=== PATIENT | female | born 1995 | race Caucasian/White ===

== ENCOUNTER 2016-02-25 02:56 | Inpatient (IN) | payer OTHER ==
[~2016-02-25] VITALS: Ht 157.5 cm; Wt 70.4 kg
[~2016-02-25 02:56] MED LIST: MULT-506 PO; [UNRECOGNIZED DRUG - CODE] PO
[2016-02-25] MEDS ORDERED: LACTATED RINGER'S 1000ML 1,000 ML IV PRN (03:07)
[2016-02-25] MEDS ORDERED: MTHL PO (03:51)
[2016-02-25] MEDS ORDERED: FENTANYL 2MCG/ML ROPIV 1.25MG/ML 100ML BAG EPI ONE (03:52)
[2016-02-25] MEDS ORDERED: EpHEDrine SULFATE INJ 50 MG/ML AMP ONE (03:52)
[2016-02-25] MEDS ORDERED: BUPIVACAINE 0.25% 30 ML VIAL ONE (03:52)
[2016-02-25] MEDS ORDERED: FENTANYL CITRATE INJ 50 MCG/1 ML 2 ML VIAL ONE (03:52)
[2016-02-25 03:53] VITALS: Ht 157.5 cm; Wt 70.4 kg
[2016-02-25 03:57] LABS: HEMATOCRIT 33.3 % (37-47); MEAN CELL VOLUME 84.9 fL (80-100); MEAN CORPUSCULAR HEMOGLOBIN 29.3 pg (25-34); MEAN CORPUSCULAR HGB CONC 34.5 g/dl (32-36); MEAN PLATELET VOLUME 11.3 fL (7.4-10.4); PLATELET COUNT 205 K/uL (130-400); RED BLOOD COUNT 3.92 M/uL (4.2-5.4); WHITE BLOOD COUNT 9.24 K/uL (4.8-10.8)
[2016-02-25] MEDS ORDERED: LACTATED RINGER'S 1000ML 500 ML IV PRN ×2 (04:38→09:34)
[2016-02-25] MEDS: LACTATED RINGER'S 1000ML 1,000 ML IV SCH ×2 (04:38→11:54)
[2016-02-25] MEDS ORDERED: EpHEDrine SULFATE INJ 50 MG/ML AMP IV PRN (04:45)
[2016-02-25] MEDS ORDERED: NALBUPHINE HCL INJ 10 MG/ML AMP IV PRN (04:45)
[2016-02-25] MEDS ORDERED: DiphenhydrAMINE HCL 50 MG/ML VIAL IV PRN (04:45)
[2016-02-25] MEDS ORDERED: NALOXONE HCL INJ 0.4 MG/1 ML VIAL/CARP IV PRN (04:45)
[2016-02-25] MEDS ORDERED: ONDANSETRON INJ 2 MG/ML 2 ML VIAL IV PRN (04:45)
[2016-02-25] MEDS ORDERED: NURSING VERBAL MED ORDER ONE (06:45)
[2016-02-25] MEDS: FENTANYL 2MCG/ML ROPIV 1.25MG/ML 100ML BAG EPI PRN ×2 (07:09→10:00)
[2016-02-25] MEDS ORDERED: METHADONE ORAL SOLN 2 MG/1ML PO SCH (08:00)
[2016-02-25] MEDS ORDERED: OXYTOCIN 30 UNITS/500ML NSS IV ONE (08:50)
[2016-02-25] MEDS ORDERED: OXYTOCIN 30 UNITS/500ML NSS IV PRN ×2 (09:45→15:15)
[2016-02-25] MEDS: METHADONE ORAL SOLN 2 MG/1ML PO SCH (10:59)
[2016-02-25] MEDS ORDERED: BENZOCAINE 20% AER SPR 82.5 GM CAN EXT PRN (15:15)
[2016-02-25] MEDS ORDERED: LANOLIN OINT EXT PRN ×2 (15:15)
[2016-02-25] MEDS ORDERED: SUPERCREAM 0.870 % 15GM JAR EXT PRN (15:15)
[2016-02-25] MEDS ORDERED: HYDROCORTISONE ACETATE 25 MG SUPP PR PRN (15:15)
[2016-02-25] MEDS ORDERED: ACETAMINOPHEN 325 MG TAB PO PRN (15:45)
--- NOTE | 2016-02-25 16:04 | DELIVERY SUMMARY ---
DATE OF OPERATION: 02/25/2016 DELIVERY SUMMARY DATE OF DELIVERY: 02/25/2016. PRE-DELIVERY DIAGNOSIS: 1. 21-year-old G1,P0 at 39 weeks 6 days. 2. Spontaneous rupture of membranes and spontaneous labor. 3. Methadone use. POST-DELIVERY DIAGNOSIS: Same. ESTIMATED BLOOD LOSS: 300 mL. APGARS: 7 and 9. FINDINGS: Viable male with Apgars 7 and 9, weight pending. Compound hand presentation. DESCRIPTION OF DELIVERY: The patient progressed to complete with epidural analgesia. She labored while complete for 2+ hours however heart tracing was category 1. She then felt the urge to push and began to push and spontaneously vaginally delivered a viable male in the left occiput anterior position. The head delivered and a compound hand right arm delivered at the same time as the attempts to deliver the shoulder. Attempt to sweep the arm was unsuccessful and the baby's shoulders were rotated to a diagonal position to better fit through the pelvis. No nuchal cord was noted. The body delivered after the shoulders. The cord was doubly clamped and cut. The baby was immediately handed off to waiting pediatrics team where a spontaneous cry was heard. Apgars were 7 and 9. The placenta was then spontaneously delivered intact with a 3-vessel cord. Pitocin was started. The uterus and vagina were swept of all clots and debris. Excellent hemostasis was observed. The cervix, vagina and perineum were inspected and found to be hemostatic. A first degree superficial perineal laceration was noted. This was hemostatic and therefore no repair was needed. Mother and baby were recovering in the room in stable and good condition. I attest to the content of the Intraoperative Record and any orders documented therein. Any exceptio ns are noted below.
[2016-02-25] MEDS: IBUPROFEN 600 MG TAB PO PRN ×2 (17:27→23:51)
[2016-02-25 17:45] VITALS: BP 135/79; PULSE 88; TEMP 37.1
[2016-02-25 20:29] VITALS: BP 143/82; PULSE 89; TEMP 36.6
[2016-02-25] MEDS: DOCUSATE SODIUM 100 MG CAP PO SCH (21:06)
[2016-02-25 23:45] VITALS: BP 133/78; PULSE 90; TEMP 36.7; O2SAT 98
[2016-02-26 03:50] VITALS: BP 119/77; PULSE 83; TEMP 36.6; O2SAT 97
--- NOTE | 2016-02-26 06:54 | Progress Note ---
Subjective Feb 26, 2016. Subjective conversation w/ patient, physical exam Ambulation: limited ambulation Voiding: no voiding problems Passing Gas: Yes Diet Tolerance: Regular Diet Lochia: Small Feeding Type: Bottle Feeding Pain: No pain reported this morning Review of Systems Constitutional: No chills, No fever Respiratory: No cough, No shortness of breath Cardiac: No chest pain Breast: No breast pain Abdomen: No nausea, No pain, No vomiting Female : No dysuria Objective Vital Signs Date Time Temp Pulse Resp B/P Pulse Ox O2 Delivery O2 Flow Rate FiO2 02/26/16 03:50 36.6 83 16 119/77 97 Room Air 02/25/16 23:45 98 Room Air 02/25/16 23:45 36.7 90 18 133/78 98 Room Air 02/25/16 20:35 Room Air 02/25/16 20:29 36.6 89 16 143/82 Room Air 02/25/16 17:45 37.1 88 16 135/79 Room Air 02/25/16 17:45 Room Air Physical Exam General Appearance: WELL-APPEARING, WD/WN, NO APPARENT DISTRESS Respiratory/Chest: lungs clear, normal breath sounds Cardiovascular: regular rate, rhythm, no gallop, no murmur Abdomen: non tender, soft Fundus: Firm, Relation to Umbilicus (1cm below umbilicus) Extremities: no calf tenderness Laboratory Results Last 24 Hours Test 02/26/16 04:44 Medications Current Inpatient Medications Medications (Trade) Dose Ordered Sig/Jose Route Start Time Stop Time Status Last Admin Dose Admin Lactated Ringer's 1,000 ml @ 125 mls/hr Q8H IV 02/25/16 03:07 02/27/16 03:06 02/25/16 11:54 125 MLS/HR Lactated Ringer's (Lr 1000ml) 1,000 ml @ 999 mls/hr Q1H1M PRN IV 02/25/16 03:07 03/26/16 03:06 02/25/16 04:38 999 MLS/HR Methadone HCl 136 mg 136 mg DAILY@1100 PO 02/25/16 11:00 03/10/16 10:59 02/25/16 10:59 136 MG Lactated Ringer's (Lr 1000ml) 500 ml @ 999 mls/hr Q31M PRN IV 02/25/16 09:34 03/26/16 09:33 Oxytocin (Pitocin IV) 30 units UD PRN IV 02/25/16 15:15 03/26/16 15:14 Benzocaine (Dermoplast Aero Spr) 1 appln PRN PRN EXT 02/25/16 15:15 03/26/16 15:14 02/25/16 21:06 1 APPLN Cocaine HCl (Supercream 0.870% Cr) BID PRN EXT 02/25/16 15:15 03/10/16 15:14 Hydrocortisone Acetate (Anusol Hc Supp) 25 mg BID PRN HI 02/25/16 15:15 03/26/16 15:14 Lanolin (Lanolin Oint) PRN PRN EXT 02/25/16 15:15 03/26/16 15:14 Ibuprofen (Motrin Tab) 600 mg Q4H PRN PO 02/25/16 15:15 03/26/16 15:14 02/25/16 23:51 600 MG Bisacodyl (Dulcolax Tab) 5 mg 20 PO 02/26/16 20:00 02/26/16 20:01 Bisacodyl (Dulcolax Supp) 10 mg DAILY PRN HI 02/27/16 07:00 02/27/16 07:01 Docusate Sodium (coLACE CAP) 100 mg BID PO 02/25/16 20:00 03/26/16 19:59 02/25/16 21:06 100 MG Acetaminophen (Tylenol Tab) 325 mg Q4H PRN PO 02/25/16 15:45 03/26/16 15:44 02/25/16 16:14 325 MG Assessment and Plan Problem List Medical Problems: (1) Abdominal cramping affecting Status: Acute (2) Cervical strain Status: Acute (3) First trimester Status: Acute (4) Status: Acute (5) Status: Acute (6) Urinary tract infection Status: Acute (7) Whiplash Status: Acute Post- Day#: 1 Continue Routine Care: - Vital Signs reviewed and WNL (temp max 36.6) - Blood Type: O+, GBS- , Rubella Immune - Patient doing well clinically - Encourage Ambulation today - Pain well controlled - Tolerating PO Diet Well Resident Physician Supervision Note: I interviewed and examined the patient. Discussed with Dr. Monique and agree with findings and plan as documented in the note. Any exceptions or clarifications are listed here: [None] Documented By: Arsalan López
[2016-02-26 07:10] LABS: HEMATOCRIT 28.8 % (37-47)
[2016-02-26 07:50] VITALS: BP 120/81; PULSE 86; TEMP 36.6
[2016-02-26] MEDS ORDERED: METHADONE ORAL SOLN 5 MG/2.5 ML UDP PO SCH (08:00)
[2016-02-26] MEDS: DOCUSATE SODIUM 100 MG CAP PO SCH ×2 (08:11→19:41)
[2016-02-26] MEDS: METHADONE ORAL SOLN 2 MG/1ML PO SCH (11:27)
[2016-02-26 12:35] VITALS: BP 124/85; PULSE 82; TEMP 36.6
[2016-02-26 15:30] VITALS: BP 126/83; PULSE 79; TEMP 36.7
[2016-02-26] MEDS: IBUPROFEN 600 MG TAB PO PRN ×2 (16:22→23:18)
[2016-02-26] MEDS ORDERED: BISACODYL 5 MG TABEC PO SCH (20:00)
[2016-02-26 23:15] VITALS: BP 136/93; PULSE 84; TEMP 36.4
[2016-02-27] MEDS ORDERED: BISACODYL 10 MG SUPP PR PRN (07:00)
[2016-02-27 08:50] VITALS: BP 125/81; PULSE 74; TEMP 36.4; O2SAT 97
[2016-02-27] MEDS: DOCUSATE SODIUM 100 MG CAP PO SCH (08:54)
[2016-02-27] MEDS: METHADONE ORAL SOLN 2 MG/1ML PO SCH (10:57)
--- NOTE | 2016-02-27 11:11 | Progress Note ---
Subjective Feb 27, 2016. Subjective conversation w/ patient Ambulation: ambulating normally Voiding: no voiding problems Passing Gas: Yes Diet Tolerance: Regular Diet Lochia: Moderate Feeding Type: Breast Feeding Pain: pain controlled Review of Systems Constitutional: No problem reported Respiratory: No problem reported Cardiac: No problem reported Breast: No problem reported Abdomen: No problem reported Female : No problem reported Objective Vital Signs Date Time Temp Pulse Resp B/P Pulse Ox O2 Delivery O2 Flow Rate FiO2 02/27/16 08:50 97 Room Air 02/27/16 08:50 36.4 74 18 125/81 97 Room Air 02/26/16 23:15 Room Air 02/26/16 23:15 36.4 84 20 136/93 Room Air 02/26/16 15:30 Room Air 02/26/16 15:30 36.7 79 20 126/83 Room Air 02/26/16 12:35 36.6 82 20 124/85 Physical Exam General Appearance: WELL-APPEARING, WD/WN, NO APPARENT DISTRESS Respiratory/Chest: no respiratory distress Cardiovascular: regular rate, rhythm Abdomen: non tender, soft Fundus: Firm Extremities: normal inspection Assessment and Plan Problem List Medical Problems: (1) Abdominal cramping affecting Status: Acute (2) Cervical strain Status: Acute (3) First trimester Status: Acute (4) Status: Acute (5) Status: Acute (6) Urinary tract infection Status: Acute (7) Whiplash Status: Acute Post- Day#: 2 Continue Routine Care: Feeling well. Plan to discharge home today. Discharge instructions reviewed. Patient is to followup in office in 6w.
--- NOTE | 2016-02-27 11:13 | Discharge Instructions ---
Discharge Instructions Admission Reason for Admission: LABOR Discharge Discharge Diagnosis / Problem: Vaginal delivery Discharge Goals Goal(s): Routine recovery after delivery Activity Recommendations Activity Limitations: per Instructions/Follow-up section . Instructions / Follow-Up Instructions / Follow-Up ACTIVITY RECOMMENDATIONS: * Gradual return to full activity over the next 2-3 weeks. * No lifting - nothing heavier than baby over the next 2-3 weeks. * Do not engage in vigorous exercise, sexual activity or sports until cleared by your physician. * Do not drive or operate any motorized equipment until cleared by your physician. * You may shower/bathe daily. MEDICATIONS: For discomfort or pain, you may use Acetaminophen (Tylenol), Ibuprofen (Advil), or Naproxen (Aleve) following the package directions. For constipation you may use Colace following the package directions. BREAST CARE: If you are not breast feeding: * Wear a supportive bra 24 hours a day for one to two weeks. * Avoid stimulating your breasts and nipples as much as possible during the first few weeks after delivery. * When taking a shower, have the warm water hit your back, not breasts. * When your breasts feel full, apply ice packs. Usually three to four times a day helps ease the discomfort. * Take a mild pain medication (Tylenol / Motrin) when you are uncomfortable. If breast feeding: * Use breast milk to lubricate nipples. Lansinoh cream may be used for sore nipples. You do not need to remove cream prior to breast feeding. If using a different brand of cream, check the label for directions regarding removal of cream prior to nursing. * Wear a supportive bra. * If having problems with breasts or breast feeding, call a toy consultant or your health care provider. EPISIOTOMY CARE: After delivery, if you have an episiotomy (stitches), the following steps will ease discomfort and aid healing. * For the first 24 hours after delivery, place ice packs next to your episiotomy to help reduce swelling. * After the first 24 hour-period, sitz baths, either portable or in the tub, are suggested. A shower with a shower arm sprayed over the episiotomy may be comforting. * Mally care should be done after each voiding and bowel movement. Squirt warm water from a plastic bottle over the perineum (region of the body between the anus and urinary opening) and pat dry. * Use Dermoplast to ease discomfort. Shake container. Wisner directly over the episiotomy. Place a Tucks on a clean sanitary pad next to your episiotomy. SPECIAL CARE INSTRUCTIONS: When you are discharged from the hospital, it is important for you to follow the instructions listed below: * During the first week at home, you should be able to care for yourself and your baby. In addition, the usual light household activities are encouraged. * Limit your activities to the way you feel. Do not try to clean the house or move furniture. Be sensible. * If you actively engage in sports and have done so up until the time of your delivery, you may resume these activities as soon as you feel able. This may take up to one month or even longer. Use good judgment. * Continue to take your vitamins for at least six weeks after the of your baby. * Your diet need not be limited unless you were on a special diet before your delivery. Breast-feeding mothers need around 2500 calories per day and at least 64-80 ounces of fluid per day (8 to 10 glasses). * You should eat foods from the four major food groups. Crash diets or fad diets are to be avoided. Eating lean meats, fresh fruits and vegetables, low-fat dairy products, high fiber foods and a regular exercise program, will help you get back to your pre- weight without putting your health at risk. * Constipation is sometimes a problem after delivery. Take a mild laxative as needed. If breast feeding, Milk of Magnesia is acceptable to use. You may use a suppository or Fleets enema if no episiotomy. * A daily shower or tub bath is suggested. Be sure to thoroughly and gently dry the perineum. * A bloody vaginal discharge will usually continue until around four weeks post . A small amount of bleeding may continue for as long as six weeks. Vaginal discharge changes from the bright red bleeding after delivery to pink then brownish and finally yellowish-pink before becoming white and disappearing. * Bleeding may increase with activity. Your first period may come in 4-8 weeks. If you are breast feeding, your period may be delayed even longer. * Aguilita (sex) can begin whenever both you and your partner feel comfortable and do not have any form of genital infection. It is recommended that you wait at least six weeks for internal and external healing to occur. If you have questions, please talk to your health care practitioner. A condom should be used to prevent infection and . * Foreplay, gentle intercourse and lubrication is very important the first several times to prevent pain. A water-based lubricant such as K-Y jelly or Astroglide may be used. * If you have RH negative blood and your baby is RH positive, you will receive RHOGAM by injection prior to discharge. The nurse will give you a card to keep with you that has the date and place that you received RHOGAM after delivery. * During your care, you had a Rubella screen done to check for the presence of rubella antibodies in your blood. If your test was negative, you will receive a Rubella vaccine prior to discharge. This vaccine may cause a fever, soreness at the injection site and flu-like symptoms. If these symptoms persist, notify your health care practitioner. is not advised for one month after a Rubella vaccine. * Verbalizes understanding of car seat law as reviewed with patient nursing. * Car Seat hand-out given and reviewed with patient by nursing. * Shaken baby information reviewed with patient by nursing. Call you doctor if: * Heavy bleeding (saturating several pads an hour) or passing clots the size of your fist. * A fever >101 degrees F (38.3 degrees C) on two occasions four hours apart and /or chills. * Unusual pain in the pelvic or vaginal areas. * "Baby Blues" lasting longer than two weeks. If you have any questions or concerns, call your health care practitioner at . FOLLOW UP VISIT: * Please call the office at to schedule a 6 week examination. It is important you keep this appointment. It is important for you to make arrangements for either yearly or twice yearly check-ups thereafter. Current Hospital Diet Patient's current hospital diet: Regular OB Diet Discharge Diet Recommended Diet: Regular OB Diet Pending Studies Studies pending at discharge: no Medical Emergencies . Who to Call and When: Medical Emergencies: If at any time you feel your situation is an emergency, please call 911 immediately. . Non-Emergent Contact Non-Emergency issues call your: Primary Care Provider . . "Provider Documentation" section prepared by Evy Navarro. VTE Core Measure Inpt VTE Proph given/why not?: Treatment not indicated
[2016-02-27 15:30] VITALS: BP 131/81; PULSE 72; TEMP 36.6
[2016-02-27] MEDS: IBUPROFEN 600 MG TAB PO PRN (15:50)
[2016-02-27 18:15] VITALS: BP_DIAS 81; PULSE 72; TEMP 36.6
== END 2016-02-27 18:10 | disposition home or self-care (01) | DRG 775 ==
LOC: C.OPB 02:56 → C.LD 02:56 → C.OPB 03:11 → C.OBG 18:47
PROVIDERS: ADMIT Obstetrics & Gynecology; ATTEND Obstetrics & Gynecology
PROC: 10E0XZZ Delivery of Products of Conception, External Approach (ICD-10-PCS; principal; 2016-02-25)
DX: O42.02 Full-term premature rupture of membranes, onset of labor within 24 hours of rupture (principal); O99.324 Drug use complicating childbirth; Z37.0 Single live birth; F19.10 Other psychoactive substance abuse, uncomplicated; O32.6XX0 Maternal care for compound presentation, not applicable or unspecified; Z79.891 Long term (current) use of opiate analgesic; Z3A.39 39 weeks gestation of pregnancy

== ENCOUNTER 2016-06-07 17:33 | Emergency (ER) | payer OTHER ==
[~2016-06-07] VITALS: Ht 157.5 cm; Wt 59.1 kg
[~2016-06-07 17:33] MED LIST changes: +MTHL PO; -[UNRECOGNIZED DRUG - CODE] PO
[2016-06-07 17:45] VITALS: TEMP 36.8; Ht 157.5 cm; Wt 59.1 kg
[2016-06-07] MEDS ORDERED: IBUP-103 PO (18:04)
[2016-06-07] MEDS ORDERED: OXYC1TAB3 PO (18:06)
[2016-06-07] MEDS ORDERED: PENI-82 PO (18:06)
--- NOTE | 2016-06-07 18:11 | EMERGENCY ROOM VISIT NOTE ---
History First contact with patient: 17:56 Chief Complaint: DENTAL PAIN Stated Complaint: ABCESS TOOTH, SWOLLEN MOUTH AND GUMS,VOMITING,FEVE Nursing Triage Summary: Pt reports right upper dental pain x 3 days, swelling began last night. Has a dentist appt on . Pt states, "There is a puffed up ball and a ball of pus on my gum." History of Present Illness The patient is a 21 year old female who presents to the Emergency Room with complaints of a dental infection. The patient reports that she has had right upper dental pain for the past 3 days, and is now tasting pus in her mouth. The patient has an appointment next Sunday with a dentist in [place]. She denies any pain extending into the lower jaw, and denies any difficulty with swallowing. She denies sinus congestion or headache. She rates her discomfort a 7 out of 10. Review of Systems 10 system review was performed and was negative except for pertinent positives and negatives as indicated in history of present illness Past Medical/Surgical History Medical Problems: (1) Hemorrhage following tonsillectomy (2) Leakage, amniotic fluid (3) Neck muscle strain (4) Neck muscle strain (5) Normal labor (6) Pneumonia (7) with 39 completed weeks gestation (8) Urinary tract infection (9) Urinary tract infection (10) Yeast infection Family History Cancer Diabetes mellitus Heart disease Hypertension Kidney disease Kidney stones Social History Smoking Status: Never Smoker Alcohol Use: none Drug Use: none Marital Status: single Housing Status: lives alone Occupation Status: employed Current/Historical Medications Scheduled Penicillin V Potassium (Veetids), 500 MG PO QID Scheduled PRN Ibuprofen Tab (Advil), 400 MG PO Q6H PRN for Pain Oxycodone Ir (Roxicodone Ir), 1-2 TAB PO Q4H PRN for Pain Allergies Coded Allergies: Lanolin (Verified Allergy, Unknown, HIVES, 02/25/16) Physical Exam Vital Signs Date Time Temp Pulse Resp B/P Pulse Ox O2 Delivery O2 Flow Rate FiO2 06/07/16 18:22 89 16 115/74 98 06/07/16 17:45 36.8 69 18 122/81 99 Room Air Physical Exam CONSTITUTIONAL: Healthy and well nourished. Alert and oriented X 3 with positive affect. HEENT: Normocephalic, atraumatic. Pupils equal, round and reactive. No facial edema noted. Examination of the right ear does not show any erythema or air-fluid levels. OROPHARYNX: The patient has pointing of the right upper premolar. The wound is draining. No additional gingival erythema or edema noted. NECK: Full active range of motion without discomfort. INTEGUMENTARY: No rash or other significant dermatologic conditions noted. NEUROLOGIC: Facial sensations are intact. Medical Decision & Procedures ED Course Patient history and physical exam were performed. Nurse's notes were reviewed. The patient was provided prescriptions for Pen-Vee K 500 mg 4 times a day 10 days, and OxyIR 5 mg, dispensed #15 with no refills. She was also encouraged to alternate ibuprofen and Tylenol for baseline pain relief. She was instructed to contact her dentist tomorrow to advise them of her infection. Return to the emergency department for any significantly worsening swelling, pain or fever. She was advised that she may also follow-up with her family doctor as needed for pain management until she can see her dentist next week. The patient voiced understanding of all discharge instructions, was happy with plan care, and rated her pain a 6 out of 10 at the time of discharge. Patient refused any nonnarcotic analgesics while in the emergency department as she drove here. Impression Primary Impression: Dental infection Departure Information Dispostion Home / Self-Care Prescriptions Oxycodone Ir (Roxicodone Ir) 5 Mg Tab 1-2 TAB PO Q4H Y for Pain, #15 TAB For Initial Treatment Prov: Beny Durant PA 06/07/16 Penicillin V Potassium (Veetids) 500 Mg Tab 500 MG PO QID, #40 TAB Prov: Beny Durant PA 06/07/16 Forms HOME CARE DOCUMENTATION FORM, IMPORTANT VISIT INFORMATION Patient Instructions My [facility] Additional Instructions Complete all Pen-Vee K antibiotics as prescribed. Intermittently apply warm moist compress/washcloth to the face. Rinse mouth with warm salt water every 4 hours. Ibuprofen 800 mg and/or Tylenol 1000 mg every 8 hours. You may also alternate these medications for more effective pain relief: Ibuprofen --4 HRS--> Tylenol --4 HRS--> ibuprofen --4 HRS--> Tylenol .... OxyIR if needed for worse pain. Follow-up with your dentist for further reevaluation and management. You may also need to contact your family doctor for further pain management until you can see your dentist. The emergency department does not provide dental services, referrals or ongoing dental pain management.
[2016-06-07 18:22] VITALS: BP 115/74; PULSE 89; O2SAT 98
== END 2016-06-07 18:23 | disposition home or self-care (01) ==
LOC: C.EDD 18:01
DX: K04.7 Periapical abscess without sinus (principal); K08.89 Other specified disorders of teeth and supporting structures

== ENCOUNTER 2016-06-18 10:10 | Emergency (ER) | payer OTHER ==
[~2016-06-18 10:10] MED LIST changes: +IBUP-103 PO; -MTHL PO; -MULT-506 PO; +OXYC1TAB3 PO; +PENI-82 PO
[2016-06-18 10:13] VITALS: BP 112/69; PULSE 92; TEMP 36.7; O2SAT 97; Ht 157.5 cm
[2016-06-18] MEDS ORDERED: METH10CO PO (10:19)
--- NOTE | 2016-06-18 10:52 | DIAGNOSTIC IMAGING REPORT ---
RIGHT TOE(S) MIN 2 VIEWS CLINICAL HISTORY: Right first toe pain following injury. COMPARISON: Right foot radiographs June 30, 2014. FINDINGS: Alignment of the right first toe is anatomic. There is no fracture. IMPRESSION: No acute fracture or dislocation of the right first toe. Electronically signed by: Jose Barreto M.D. 06/18/2016 10:50 AM Dictated Date/Time: 06/18/2016 10:48 AM
--- NOTE | 2016-06-18 14:38 | EMERGENCY ROOM VISIT NOTE ---
History Report prepared by Darryl: Gucci Munoz Under the Supervision of: Dr. Dionisio Dorantes D.O. First contact with patient: 10:16 Chief Complaint: TOE PAIN, INJURY Stated Complaint: BRUISED/BROKEN BIG TOE ON RT FOOT History of Present Illness The patient is a 21 year old female who presents to the Emergency Room with complaints of persistent big toe pain on her right foot that started prior to arrival this morning. She works as a logistics supply officer, and she says that she was rolling a car at work, and the cart rolled onto her big toe on her right foot. The patient says that the cart did not hit her chest or any other body part. She denies any shortness of breath, chest pain, nausea, and vomiting. Source of History: patient Onset: Prior to arrival this morning Position: toe(s) (big toe on right foot) Quality: other (pain) Timing: other (persistent) Associated Symptoms: No SOB, No chest pain, No diarrhea, No nausea, No vomiting Note: Associated symptoms: Denies hip pain or knee pain. Review of Systems See HPI for pertinent positives & negatives. A total of 10 systems reviewed and were otherwise negative. Past Medical & Surgical Medical Problems: (1) Hemorrhage following tonsillectomy (2) Leakage, amniotic fluid (3) Neck muscle strain (4) Neck muscle strain (5) Normal labor (6) Pneumonia (7) with 39 completed weeks gestation (8) Pyelonephritis (9) Urinary tract infection (10) Urinary tract infection (11) Yeast infection Surgical Problems: (1) History of tonsillectomy Family History Cancer Diabetes mellitus Heart disease Hypertension Kidney disease Kidney stones Social History Smoking Status: Never Smoker Alcohol Use: none Drug Use: none Marital Status: single Housing Status: lives alone Occupation Status: employed Current/Historical Medications Scheduled Methadone Hcl (Methadone Hcl Intensol), 90 MG PO DAILY Allergies Coded Allergies: Lanolin (Verified Allergy, Unknown, HIVES, 06/18/16) Physical Exam Vital Signs Date Time Temp Pulse Resp B/P Pulse Ox O2 Delivery O2 Flow Rate FiO2 06/18/16 10:13 36.7 92 20 112/69 97 Room Air Physical Exam GENERAL: sitting up in bed, no acute distress, nontoxic EYE EXAM: normal conjunctiva OROPHARYNX: mucous membranes are moist NECK: supple, no nuchal rigidity, no adenopathy, non-tender LUNGS: Clear to auscultation. Normal chest wall mechanics HEART: no murmurs, S1 normal and S2 normal ABDOMEN: abdomen soft, non-tender, normo-active bowel sounds, no masses, no rebound or guarding. BACK: Back is symmetrical on inspection and there is no deformity, no midline tenderness, no CVA tenderness. SKIN: no rashes and no bruising UPPER EXTREMITIES: upper extremities are grossly normal. LOWER EXTREMITIES: Full active and passive range of motion of right hip, knee, and ankle. No tenderness over arch of foot. Second through fifth digits are nontender. Mild pain on palpation on proximal portion of toe tracking distally to tip. No tenderness over MTP. Skin intact, no bruising, no swelling. NEURO EXAM: Normal sensorium. Medical Decision & Procedures ER Provider Diagnostic Interpretation: Radiology results as stated below per my review and the radiologist's interpretation: RIGHT TOE(S) MIN 2 VIEWS CLINICAL HISTORY: Right first toe pain following injury. COMPARISON: Right foot radiographs June 30, 2014. FINDINGS: Alignment of the right first toe is anatomic. There is no fracture. IMPRESSION: No acute fracture or dislocation of the right first toe. Electronically signed by: Jose Barreto M.D. 06/18/2016 10:50 AM Dictated Date/Time: 06/18/2016 10:48 AM ED Course ED COURSE: Vital signs were reviewed and showed normal vitals. The patients medical record was reviewed The above diagnostic studies were performed and reviewed. ED treatments and interventions as stated above. 1018: The patient was evaluated in room B3B. A complete history and physical examination was performed. 1056: Upon reevaluation, the patient is resting comfortably. I discussed my findings with the patient and she understands and agrees with the treatment plan. Based on the patients age, coexisting illnesses, exam and lab findings the decision to treat as an outpatient was made. The patient remained stable while under my care. The patient appeared well at the time of discharge. Medical Decision Prior records reviewed and summarized above. Triage Nursing notes reviewed and agree them. Differential diagnosis: Etiologies such as fracture, dislocation, neurovascular compromise, compartment syndrome, soft tissue injury, as well as others were entertained. Patient is a 21-year-old female who presents the ER for right first toe pain following being hit by a cart at work. X-ray show no acute fracture. Her exam is otherwise benign. She was discharged and instructed take Tylenol and Motrin as needed. Discussed with Pt concerning signs and symptoms to watch out for. Pt was instructed to follow up with their PCP and discussed with the patient their option to return to the ED at anytime for persistent or worsening symptoms. The appropriate anticipatory guidance and out-patient management, including indications for return to the emergency department, were explained at length to the patient and understood. Impression Primary Impression: Contusion, toe Scribe Attestation The scribe's documentation has been prepared under my direction and personally reviewed by me in its entirety. I confirm that the note above accurately reflects all work, treatment, procedures, and medical decision making performed by me. Departure Information Dispostion Home / Self-Care Referrals No Doctor, Assigned (PCP) Forms HOME CARE DOCUMENTATION FORM, IMPORTANT VISIT INFORMATION, WORK / SCHOOL INSTRUCTIONS, Work Instructions Patient Instructions ED Sprain Toe, My [facility] Additional Instructions Please follow up with your primary care doctor with in the next 24 hours. Any worsening of your symptoms, please return to the ED immediately. This includes numbness, worsening pain, significant redness, or any other concerning signs or symptoms from your standpoint. Please wear loose fitting shoe and you can weight-bear as tolerated as there is no fracture. Please use Tylenol or Motrin as needed for pain. Problem Qualifiers Primary Impression: Contusion, toe Encounter type: initial encounter Toe: great toe Damage to nail status: without damage Laterality: right Qualified Codes: S90.111A - Contusion of right great toe without damage to nail, initial encounter
== END 2016-06-18 11:07 | disposition home or self-care (01) ==
LOC: C.EDB 10:11
DX: S90.111A Contusion of right great toe without damage to nail, initial encounter (principal); W22.8XXA Striking against or struck by other objects, initial encounter; Y99.0 Civilian activity done for income or pay; Z83.3 Family history of diabetes mellitus; Z82.49 Family history of ischemic heart disease and other diseases of the circulatory system; Z84.1 Family history of disorders of kidney and ureter

== ENCOUNTER 2017-01-19 09:45 | Emergency (ER) | payer OTHER ==
[~2017-01-19] VITALS: Ht 157.5 cm; Wt 54.5 kg
[~2017-01-19 09:45] MED LIST changes: -IBUP-103 PO; +METH10CO PO; -OXYC1TAB3 PO; -PENI-82 PO
[2017-01-19 09:49] VITALS: TEMP 36.8; Ht 157.5 cm; Wt 54.5 kg
[2017-01-19] MEDS ORDERED: OPTIRAY 320 IV PRN (10:30)
[2017-01-19 10:41] LABS: BASO % 0.2 %; BASO ABS # 0.01 K/uL (0-0.2); COMPLETE YES; EOS % 0.2 %; HEMATOCRIT 42.9 % (37-47); IG% 0.2 %; LYMPH % 28.6 %; LYMPH ABS # 1.64 K/uL (1.2-3.4); MEAN CELL VOLUME 87.4 fL (80-100); MEAN CORPUSCULAR HEMOGLOBIN 30.5 pg (25-34); MEAN PLATELET VOLUME 10.6 fL (7.4-10.4); MONO % 7.5 %; NEUT % 63.3 %; PLATELET COUNT 234 K/uL (130-400); RED BLOOD COUNT 4.91 M/uL (4.2-5.4); WHITE BLOOD COUNT 5.74 K/uL (4.8-10.8)
[2017-01-19 10:53] LABS: INR 1.1 (0.9-1.1); PROTHROMBIN TIME (PATIENT) 11.7 SECONDS (9.0-12.0)
[2017-01-19 11:00] LABS: CALCIUM 8.7 mg/dl (8.5-10.1); CREATININE 0.8 mg/dl (0.60-1.20); POTASSIUM 3.8 mmol/L (3.5-5.1)
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
[2017-01-19] MEDS ORDERED: KETOROLAC TROMETHAMINE 30 MG/ML VIAL IV STA (12:15)
[2017-01-19] MEDS ORDERED: METHOCARBAMOL 500 MG TAB PO STA (12:34)
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
[2017-01-19] MEDS ORDERED: METH500T PO (13:28)
[2017-01-19 13:39] VITALS: BP 104/68; PULSE 64; O2SAT 99
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
== END 2017-01-19 13:43 | disposition home or self-care (01) ==
LOC: C.EDB 09:46 → C.EDC 13:43
DX: S16.1XXA Strain of muscle, fascia and tendon at neck level, initial encounter (principal); R07.81 Pleurodynia; V43.52XA Car driver injured in collision with other type car in traffic accident, initial encounter; Y92.410 Unspecified street and highway as the place of occurrence of the external cause; Z79.899 Other long term (current) drug therapy

== ENCOUNTER 2017-01-24 10:06 | Emergency (ER) | payer OTHER ==
[~2017-01-24] VITALS: Ht 157.5 cm; Wt 54.6 kg
[~2017-01-24 10:06] MED LIST changes: +METH500T PO
[2017-01-24 10:11] VITALS: Ht 157.5 cm; Wt 54.6 kg
[2017-01-24] MEDS ORDERED: KETOROLAC TROMETHAMINE 30 MG/ML VIAL IV STA (10:31)
[2017-01-24] MEDS ORDERED: SODIUM CHLORIDE 0.9% 1000ML 1,000 ML IV STA (10:31)
[2017-01-24] MEDS ORDERED: ONDANSETRON INJ 2 MG/ML 2 ML VIAL IV STA (10:31)
[2017-01-24 11:09] LABS: BASO % 0.7 %; BASO ABS # 0.03 K/uL (0-0.2); COMPLETE YES; EOS % 0.4 %; HEMATOCRIT 44.2 % (37-47); IG% 0.2 %; LYMPH % 35.1 %; LYMPH ABS # 1.58 K/uL (1.2-3.4); MEAN CELL VOLUME 87.4 fL (80-100); MEAN CORPUSCULAR HEMOGLOBIN 30.8 pg (25-34); MEAN CORPUSCULAR HGB CONC 35.3 g/dl (32-36); MEAN PLATELET VOLUME 11.2 fL (7.4-10.4); MONO % 7.3 %; NEUT % 56.3 %; PLATELET COUNT 236 K/uL (130-400); RED BLOOD COUNT 5.06 M/uL (4.2-5.4)
[2017-01-24 11:10] LABS: URINE APPEARANCE CLOUDY (CLEAR); URINE BILIRUBIN NEG (NEG); URINE COLOR YELLOW; URINE EPITHELIAL CELL AUTO >30 /lpf (0-5); URINE NITRITE POS (NEG); URINE PH 5.5 (4.5-7.5); URINE SPECIFIC GRAVITY 1.015 (1.000-1.030); UROBILINOGEN NEG (NEG); ZZUR CULT IF INDIC CLEAN CATCH YES
[2017-01-24 11:11] LABS: MANUAL MICROSCOPIC REQUIRED? NO; REVIEW REQ? YES
--- NOTE | 2017-01-24 11:20 | DIAGNOSTIC IMAGING REPORT ---
HEAD CT NONCONTRAST CT DOSE: 537.48 mGy.cm HISTORY: Headache. TECHNIQUE: Multiaxial CT images of the head were performed without the use of intravenous contrast. Automated exposure control was utilized for this study. A dose lowering technique was utilized adhering to the principles of ALARA. Comparison: Head CT 01/19/2017. Findings: The paranasal sinuses and mastoid air cells are clear. The calvarium and skull base are intact. The ventricles and sulci are within normal limits. There is no mass, hematoma, midline shift, or acute infarct. Impression: No acute intracranial abnormality. Electronically signed by: Arpan Jules M.D. 01/24/2017 11:18 AM Dictated Date/Time: 01/24/2017 11:12 AM
[2017-01-24 11:21] LABS: URINE MUCUS PRESENT (NONE PRSENT)
[2017-01-24 11:25] LABS: BUN/CREATININE RATIO 11.9 (10-20); CALCIUM 9.1 mg/dl (8.5-10.1); CREATININE 0.75 mg/dl (0.60-1.20); POTASSIUM 3.4 mmol/L (3.5-5.1)
[2017-01-24] MEDS ORDERED: SULFAMETHOXAZOLE/TRIMETHOPRIM DS 800/160MG TAB PO STA (12:07)
[2017-01-24] MEDS ORDERED: ONDA4TAB46 PO (12:10)
[2017-01-24] MEDS ORDERED: SULF800T23 PO (12:10)
[2017-01-24 13:12] VITALS: BP 113/58; PULSE 69; TEMP 36.5; O2SAT 98
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
[2017-01-25] MEDS ORDERED: METH500T37 PO (11:48)
== END 2017-01-24 13:13 | disposition home or self-care (01) ==
LOC: C.EDB 10:08
DX: S06.0X0A Concussion without loss of consciousness, initial encounter (principal); N39.0 Urinary tract infection, site not specified; E87.6 Hypokalemia; V49.40XA Driver injured in collision with unspecified motor vehicles in traffic accident, initial encounter; Y93.89 Activity, other specified; Y99.8 Other external cause status; Z87.01 Personal history of pneumonia (recurrent); Z87.440 Personal history of urinary (tract) infections; Z90.89 Acquired absence of other organs; Z83.3 Family history of diabetes mellitus; Z82.49 Family history of ischemic heart disease and other diseases of the circulatory system; Z84.1 Family history of disorders of kidney and ureter

== ENCOUNTER 2017-01-25 10:44 | Emergency (ER) | payer OTHER ==
[~2017-01-25] VITALS: Ht 157.5 cm; Wt 50.0 kg
[~2017-01-25 10:44] MED LIST changes: +ONDA4TAB46 PO; +SULF800T23 PO
[2017-01-25 10:48] VITALS: Ht 157.5 cm; Wt 50.0 kg
[2017-01-25] MEDS ORDERED: PROCHLORPERAZINE 5 MG/ML 2 ML VIAL IV STA (11:12)
[2017-01-25] MEDS ORDERED: SODIUM CHLORIDE 0.9% 1000ML 1,000 ML IV STA (11:12)
[2017-01-25] MEDS ORDERED: DiphenhydrAMINE HCL 50 MG/ML VIAL IV STA (11:12)
[2017-01-25] MEDS ORDERED: KETOROLAC TROMETHAMINE 30 MG/ML VIAL IV STA (11:12)
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
[2017-01-25] MEDS ORDERED: METH500T37 PO (11:48)
[2017-01-25 13:44] VITALS: BP 102/89; PULSE 73; TEMP 36.5; O2SAT 100
== END 2017-01-25 13:45 | disposition home or self-care (01) ==
LOC: C.EDB 10:45 → C.EDC 13:45
DX: F07.81 Postconcussional syndrome (principal); Z83.3 Family history of diabetes mellitus; Z82.49 Family history of ischemic heart disease and other diseases of the circulatory system

== ENCOUNTER 2017-06-08 10:07 | Emergency (ER) | payer SELFPAY ==
[~2017-06-08] VITALS: Ht 157.5 cm; Wt 49.8 kg
[~2017-06-08 10:07] MED LIST changes: -METH500T PO; +METH500T37 PO
[2017-06-08 10:10] VITALS: Ht 157.5 cm; Wt 49.8 kg
[2017-06-08] MEDS ORDERED: NITR-5 PO (10:49)
--- NOTE | 2017-06-08 10:57 | EMERGENCY ROOM VISIT NOTE ---
History First contact with patient: 10:14 Chief Complaint: URINARY SYMPTOMS Stated Complaint: [id number] BACK PAIN Nursing Triage Summary: Pt states she thinks she has a UTI. Sx include dysuria, strong odor, right lower abdominal cramping, frequency, and urgency. History of Present Illness The patient is a 22 year old female who presents to the Emergency Room with complaints of urinary symptoms, including discomfort, strong odor, frequency and urgency. The patient reports that she noticed a strong odor approximately 1 week ago. She has since developed other symptoms. She has not noticed any gross hematuria. She has had no fevers or chills, nausea or significant backache. Patient has had a history of UTIs and pyelonephritis. She does not feel that she has pyelonephritis at this point. She does complain of right lower quadrant abnormal pain that goes into the back. She reports a history of ovarian cysts, but does not currently feel the same. She still has her appendix. The patient denies any vaginal discharge. The patient denies with her last menstrual period 2 weeks ago. She currently rates her discomfort an 8 out of 10. Review of Systems 10 system review was performed and was negative except for pertinent positives and negatives as indicated in history of present illness Past Medical/Surgical History Medical Problems: (1) Hemorrhage following tonsillectomy (2) Leakage, amniotic fluid (3) Neck muscle strain (4) Neck muscle strain (5) Normal labor (6) Pneumonia (7) with 39 completed weeks gestation (8) Pyelonephritis (9) Urinary tract infection (10) Urinary tract infection (11) Yeast infection Surgical Problems: (1) History of tonsillectomy Family History Cancer Diabetes mellitus Heart disease Hypertension Kidney disease Kidney stones Social History Smoking Status: Never Smoker Alcohol Use: none Drug Use: none Marital Status: single Housing Status: lives alone Occupation Status: employed Current/Historical Medications Scheduled Nitrofurantoin Monohyd Macrocr (Macrobid), 100 MG PO BID Physical Exam Vital Signs Date Time Temp Pulse Resp B/P (MAP) Pulse Ox O2 Delivery O2 Flow Rate FiO2 18 10:10 36.7 91 18 123/76 97 Room Air Physical Exam CONSTITUTIONAL: Healthy and well nourished. Alert and oriented X 3 with positive affect. Patient does not appear in any acute distress, nor does she appear toxic. HEENT: Normocephalic, atraumatic. Pupils equal, round and reactive. No scleral icterus or conjunctival injection. NECK: Full active range of motion without discomfort. RESPIRATORY: Clear to auscultation bilaterally with no wheezing, crackles, rhonchi or stridor. CARDIOVASCULAR: Regular rate and rhythm with no murmurs, rubs or gallops. GASTROINTESTINAL: Bowel sounds present in all quadrants. Patient has mild suprapubic tenderness to palpation. Negative CVA tenderness. Negative Rovsing sign. Negative psoas/obturator sign. Negative heel tap. No abdominal rigidity , guarding or rebound. MUSCULOSKELETAL: Full range of motion of all joints without discomfort. INTEGUMENTARY: No rash or other significant dermatologic conditions noted. HEMATOLOGIC: No ecchymosis or petechiae noted. NEUROLOGIC: No focal neurologic deficits noted. Medical Decision & Procedures Laboratory Results Test 06/08/17 10:30 Urine Test NEG (NEG) Urine dip is consistent with UTI. Urine is negative. Urinalysis and cultures were ordered and pending at the time of this dictation. ED Course Patient history and physical exam were performed. Nurse's notes were reviewed. Vital signs were reviewed and were normal. The patient is currently afebrile and normotensive. I also reviewed a portion of prior medical records, including prior urine cultures showing predominantly E. coli. Her infections have been susceptible to common antibiotics such as Macrobid and sulfonamides. I explained to the patient that she likely has a UTI, however I also discussed other possibilities including acute appendicitis, ovarian cyst and pyelonephritis. With shared medical decision making, the patient elected treatment with oral antibiotics. She was instructed to return to the emergency department for any progressively worsening pain or fever. She was encouraged to follow-up with her PCP or MEDICAL SERVICE REPRESENTATIVE if symptoms are not improving within the next 2-3 days. The patient was provided a prescription for Macrobid. She was encouraged to take OTC Uristat as needed for discomfort. The patient was happy with plan of care, voiced understanding of all discharge instructions, and rated her overall discomfort a 4 out of 10 at the time of discharge. Medical Decision See previous section Blood Pressure Screening Patient's blood pressure: Normal blood pressure Impression Primary Impression: Urinary tract infection Departure Information Dispostion Home / Self-Care Prescriptions Nitrofurantoin Monohyd Macrocr (Macrobid) 100 Mg Cap 100 MG PO BID for 7 Days, #14 CAP Prov: [place], Beny Garth,[place] 06/08/17 Referrals Haydee Hernandes D.O. (PCP) Forms HOME CARE DOCUMENTATION FORM, IMPORTANT VISIT INFORMATION Patient Instructions UTI, My [facility] Additional Instructions Complete all Macrobid antibiotics as prescribed. Symptoms should start to improve quickly. Follow-up with your MEDICAL SERVICE REPRESENTATIVE if symptoms are not improving by Sunday. Return to the emergency department for any progressively worsening pain, vomiting or fever. Problem Qualifiers Primary Impression: Urinary tract infection Urinary tract infection type: acute cystitis Hematuria presence: with hematuria Qualified Codes: N30.01 - Acute cystitis with hematuria
[2017-06-08 11:02] VITALS: BP 123/79; PULSE 108; TEMP 36.7; O2SAT 99
== END 2017-06-08 11:08 | disposition home or self-care (01) ==
LOC: C.EDB 10:09
DX: N30.01 Acute cystitis with hematuria (principal); Z87.440 Personal history of urinary (tract) infections; Z87.448 Personal history of other diseases of urinary system

== ENCOUNTER 2017-06-08 17:53 | Emergency (ER) | payer SELFPAY ==
[~2017-06-08] VITALS: Ht 157.5 cm; Wt 50.8 kg
[~2017-06-08 17:53] MED LIST changes: +NITR-5 PO
[2017-06-08 18:11] VITALS: TEMP 36.7; Ht 157.5 cm; Wt 50.8 kg
[2017-06-08] MEDS ORDERED: SODIUM CHLORIDE 0.9% 1000ML 1,000 ML IV STA (19:00)
[2017-06-08] MEDS ORDERED: ONDANSETRON INJ 2 MG/ML 2 ML VIAL IV STA (19:00)
[2017-06-08 19:22] LABS: BASO % 0.3 %; BASO ABS # 0.02 K/uL (0-0.2); EOS % 0.1 %; EOS ABS # 0.01 K/uL (0-0.5); HEMATOCRIT 44.4 % (37-47); HEMOGLOBIN 15.6 g/dL (12.0-16.0); IG# 0.02 K/uL (0.00-0.02); LYMPH % 32.2 %; LYMPH ABS # 2.48 K/uL (1.2-3.4); MEAN CORPUSCULAR HEMOGLOBIN 31.3 pg (25-34); MEAN CORPUSCULAR HGB CONC 35.1 g/dl (32-36); MEAN PLATELET VOLUME 10.3 fL (7.4-10.4); MONO % 7.4 %; MONO ABS # 0.57 K/uL (0.11-0.59); NEUT % 59.7 %; PLATELET COUNT 242 K/uL (130-400); RED CELL DISTRIBUTION WIDTH CV 13.5 % (11.5-14.5); RED CELL DISTRIBUTION WIDTH SD 44.2 fL (36.4-46.3)
[2017-06-08 19:36] LABS: INR 1.1 (0.9-1.1); PTT PATIENT 26.8 SECONDS (21.0-31.0)
[2017-06-08 19:38] LABS: ALBUMIN 4.5 gm/dl (3.4-5.0); CALCIUM 9.2 mg/dl (8.5-10.1); CREATININE 0.82 mg/dl (0.60-1.20); POTASSIUM 3.5 mmol/L (3.5-5.1)
[2017-06-08 19:41] LABS: TOTAL PROTEIN 8.1 gm/dl (6.4-8.2)
[2017-06-08] MEDS ORDERED: OPTIRAY 320 IV PRN (20:00)
[2017-06-08] MEDS ORDERED: CEFTRIAXONE SOD INJ 1 GM ADDVIAL IV STA (21:52)
--- NOTE | 2017-06-08 23:11 | DIAGNOSTIC IMAGING REPORT ---
ABDOMEN AND PELVIS CT WITH IV AND ORAL CONTRAST CT DOSE: 274.86 mGy.cm HISTORY: Acute generalized abdominal pain with nausea ABDOMINAL PAIN/GI TECHNIQUE: Multiaxial CT images of the abdomen and pelvis were performed following the use of intravenous and oral contrast. A dose lowering technique was utilized adhering to the principles of ALARA. COMPARISON STUDY: CT abdomen and pelvis 01/19/2017. FINDINGS: Lung bases are clear. No pneumatosis or pneumoperitoneum. Imaged inferior cardiac chambers are unremarkable. Liver, spleen, gallbladder, pancreas and adrenal glands are within normal limits. Kidneys, ureters and bladder are unremarkable. Follicular changes of the ovaries. Uterus is unremarkable. Fluid attenuating 1.6 x 1.1 cm structure seen adjacent to the right adnexum. Aorta is normal in course and caliber. No bulky adenopathy. Accessory inferior pole right renal artery incidentally noted. No bowel obstruction or focal bowel wall thickening identified. The visualized appendix appears normal. Soft tissues are unremarkable. Bones appear intact. IMPRESSION: 1. No acute intra-abdominal or intrapelvic abnormality identified. 2. No bowel obstruction or focal bowel wall thickening. 3. Follicular changes of the ovaries with 1.6 cm low attenuating structure adjacent to the right adnexum suggesting an ovarian or para ovarian cyst. 4. No evidence of acute appendicitis. Electronically signed by: Yobany Milligan M.D. 06/08/2017 11:10 PM Dictated Date/Time: 06/08/2017 11:03 PM
--- NOTE | 2017-06-08 23:23 | EMERGENCY ROOM VISIT NOTE ---
History Report prepared by Darryl: Felicia Hammer Under the Supervision of: Dr. Jerod Ro D.O. First contact with patient: 18:53 Chief Complaint: ABDOMINAL PAIN Stated Complaint: NAUSEA, ADDENDIX PAIN Nursing Triage Summary: Severe RLQ pain and vomiting. History of Present Illness The patient is a 22 year old female who presents to the Emergency Room with complaints of persistent RLQ abdominal pain for one week. She was recently seen in the ED this morning for similar symptoms. She states that she only had a urine test done, which showed negative and positive for UTI. She was treated with Bactrim. She states that she has had this pain in the past, though it is worse than before. She notes that walking worsens the pain. She has a family history of appendicitis. Source of History: patient Onset: one week Position: abdomen Timing: other (persistent) Modifying Factors (Worsening): other (walking) Associated Symptoms: + nausea, + vomiting Review of Systems See HPI for pertinent positives & negatives. A total of 10 systems reviewed and were otherwise negative. Past Medical & Surgical Medical Problems: (1) Hemorrhage following tonsillectomy (2) Leakage, amniotic fluid (3) Neck muscle strain (4) Neck muscle strain (5) Normal labor (6) Pneumonia (7) with 39 completed weeks gestation (8) Pyelonephritis (9) Urinary tract infection (10) Urinary tract infection (11) Yeast infection Surgical Problems: (1) History of tonsillectomy Family History Cancer Diabetes mellitus Heart disease Hypertension Kidney disease Kidney stones Social History Smoking Status: Current Every Day Smoker Alcohol Use: none Drug Use: none Marital Status: single Housing Status: lives alone Occupation Status: employed Current/Historical Medications Scheduled Nitrofurantoin Monohyd Macrocr (Macrobid), 100 MG PO BID Allergies Coded Allergies: Lanolin (Verified Allergy, Unknown, HIVES, 06/08/17) Physical Exam Vital Signs Date Time Temp Pulse Resp B/P (MAP) Pulse Ox O2 Delivery O2 Flow Rate FiO2 06/08/17 21:35 88 18 112/72 98 06/08/17 19:17 79 18 124/82 96 Room Air 06/08/17 18:11 36.7 89 18 123/84 95 Room Air Physical Exam CONSTITUTIONAL/VITAL SIGNS: Reviewed / noted above. GENERAL: Non-toxic in appearance. INTEGUMENTARY: Warm, dry, and [place]. HEAD: Normocephalic. EYES: without scleral icterus or trauma. ENT/OROPHARYNX: clear and moist. LYMPHADENOPATHY/NECK: Is supple without lymphadenopathy or meningismus. RESPIRATORY: Lungs clear and equal. CARDIOVASCULAR: Regular rate and rhythm. GI/ABDOMEN: Soft and tender to RLQ. No organomegaly or pulsatile mass. No rebound or guarding. Normal bowel sounds. EXTREMITIES: Warm and well perfused. BACK: No CVA tenderness. NEUROLOGICAL: Intact without focal deficits. PSYCHIATRIC: normal affect. MUSCULOSKELETAL: Normally developed with good muscle tone. Medical Decision & Procedures ER Provider Diagnostic Interpretation: Radiology results as stated below per my review and radiologist interpretation: ABDOMEN AND PELVIS CT WITH IV AND ORAL CONTRAST CT DOSE: 274.86 mGy.cm HISTORY: Acute generalized abdominal pain with nausea ABDOMINAL PAIN/GI TECHNIQUE: Multiaxial CT images of the abdomen and pelvis were performed following the use of intravenous and oral contrast. A dose lowering technique was utilized adhering to the principles of ALARA. COMPARISON STUDY: CT abdomen and pelvis 01/19/2017. FINDINGS: Lung bases are clear. No pneumatosis or pneumoperitoneum. Imaged inferior cardiac chambers are unremarkable. Liver, spleen, gallbladder, pancreas and adrenal glands are within normal limits. Kidneys, ureters and bladder are unremarkable. Follicular changes of the ovaries. Uterus is unremarkable. Fluid attenuating 1.6 x 1.1 cm structure seen adjacent to the right adnexum. Aorta is normal in course and caliber. No bulky adenopathy. Accessory inferior pole right renal artery incidentally noted. No bowel obstruction or focal bowel wall thickening identified. The visualized appendix appears normal. Soft tissues are unremarkable. Bones appear intact. IMPRESSION: 1. No acute intra-abdominal or intrapelvic abnormality identified. 2. No bowel obstruction or focal bowel wall thickening. 3. Follicular changes of the ovaries with 1.6 cm low attenuating structure adjacent to the right adnexum suggesting an ovarian or para ovarian cyst. 4. No evidence of acute appendicitis. Electronically signed by: Yobany Milligan M.D. 06/08/2017 11:10 PM Dictated Date/Time: 06/08/2017 11:03 PM Laboratory Results 06/08/17 18:30 Red Blood Count 4.99, Mean Corpuscular Volume 89.0, Mean Corpuscular Hemoglobin 31.3, Mean Corpuscular Hemoglobin Concent 35.1, Mean Platelet Volume 10.3, Neutrophils (%) (Auto) 59.7, Lymphocytes (%) (Auto) 32.2, Monocytes (%) (Auto) 7.4, Eosinophils (%) (Auto) 0.1, Basophils (%) (Auto) 0.3, Neutrophils # (Auto) 4.60, Lymphocytes # (Auto) 2.48, Monocytes # (Auto) 0.57, Eosinophils # (Auto) 0.01, Basophils # (Auto) 0.02 06/08/17 18:30 Test 06/08/17 18:30 White Blood Count 7.70 K/uL (4.8-10.8) Red Blood Count 4.99 M/uL (4.2-5.4) Hemoglobin 15.6 g/dL (12.0-16.0) Hematocrit 44.4 % (37-47) Mean Corpuscular Volume 89.0 fL (80-100) Mean Corpuscular Hemoglobin 31.3 pg (25-34) Mean Corpuscular Hemoglobin Concent 35.1 g/dl (32-36) Platelet Count 242 K/uL (130-400) Mean Platelet Volume 10.3 fL (7.4-10.4) Neutrophils (%) (Auto) 59.7 % Lymphocytes (%) (Auto) 32.2 % Monocytes (%) (Auto) 7.4 % Eosinophils (%) (Auto) 0.1 % Basophils (%) (Auto) 0.3 % Neutrophils # (Auto) 4.60 K/uL (1.4-6.5) Lymphocytes # (Auto) 2.48 K/uL (1.2-3.4) Monocytes # (Auto) 0.57 K/uL (0.11-0.59) Eosinophils # (Auto) 0.01 K/uL (0-0.5) Basophils # (Auto) 0.02 K/uL (0-0.2) RDW Standard Deviation 44.2 fL (36.4-46.3) RDW Coefficient of Variation 13.5 % (11.5-14.5) Immature Granulocyte % (Auto) 0.3 % Immature Granulocyte # (Auto) 0.02 K/uL (0.00-0.02) Prothrombin Time 11.1 SECONDS (9.0-12.0) Prothromb Time International Ratio 1.1 (0.9-1.1) Activated Partial Thromboplast Time 26.8 SECONDS (21.0-31.0) Partial Thromboplastin Ratio 1.0 Urine Color YELLOW Urine Appearance CLOUDY (CLEAR) Urine pH 6.0 (4.5-7.5) Urine Specific [place] 1.021 (1.000-1.030) Urine Protein NEG (NEG) Urine Glucose (UA) NEG (NEG) Urine Ketones TRACE (NEG) Urine Occult Blood TRACE (NEG) Urine Nitrite POS (NEG) Urine Bilirubin NEG (NEG) Urine Urobilinogen NEG (NEG) Urine Leukocyte Esterase MODERATE (NEG) Urine WBC (Auto) >30 /hpf (0-5) Urine RBC (Auto) 0-4 /hpf (0-4) Urine Hyaline Casts (Auto) 0 /lpf (0-5) Urine Epithelial Cells (Auto) >30 /lpf (0-5) Urine Bacteria (Auto) 4+ (NEG) Urine Pathogenic Casts /lpf (0) Urine Mucus PRESENT (NONE PRSENT) Urine Test NEG (NEG) Anion Gap 5.0 mmol/L (3-11) Est Creatinine Clear Calc Drug Dose 83.7 ml/min Estimated GFR () 116.1 Estimated GFR (Non- 100.2 BUN/Creatinine Ratio 17.3 (10-20) Calcium Level 9.2 mg/dl (8.5-10.1) Total Bilirubin 0.8 mg/dl (0.2-1) Direct Bilirubin 0.2 mg/dl (0-0.2) Aspartate Amino Transf (AST/SGOT) 11 U/L (15-37) Alanine Aminotransferase (ALT/SGPT) 18 U/L (12-78) Alkaline Phosphatase 86 U/L (45-117) Total Protein 8.1 gm/dl (6.4-8.2) Albumin 4.5 gm/dl (3.4-5.0) Lipase 79 U/L (73-393) Laboratory results as stated above per my review. Medications Administered Medications (Trade) Dose Ordered Sig/Jose Route Start Time Stop Time Status Last Admin Dose Admin Sodium Chloride 1,000 ml @ 999 mls/hr Q1H1M STAT IV 06/08/17 19:00 06/08/17 20:00 DC 06/08/17 19:16 999 MLS/HR Ondansetron HCl (Zofran Inj) 4 mg NOW STAT IV 06/08/17 19:00 06/08/17 19:03 DC 06/08/17 19:16 4 MG Ceftriaxone Sodium (Rocephin Inj) 1 gm NOW STAT IV 06/08/17 21:52 06/08/17 21:53 DC 06/08/17 22:23 1 GM ED Course 1855: Previous medical records were reviewed. The patient was evaluated in room B3B. A complete history and physical examination was performed. 0: Ordered Zofran 4 mg IV and Sodium Chloride 1,000 ml @ 999 mls/hr IV 2151: Ordered Rocephin 1 gm IV 9: I reassessed the patient at this time. She is feeling better and resting comfortably. I discussed the results and treatment plan with the patient. I answered all pertaining questions that she had. She expressed understanding and verbalized agreement. The patient will be discharged home. Medical Decision Differential considered: pancreatitis, hepatitis, or acute cholecystitis, AAA, UTI, pyelonephritis, kidney stones, appendicitis, diverticulitis, shingles, bowel obstruction mesenteric ischemia, intussusception, hernia, ovarian torsion , ruptured ovarian cyst, ectopic , . This is a 22-year-old female who presents to the ED with a chief complaint of abdominal pain. The patient's pain is mostly on the right side and lower abdomen. It is associated with some nausea and vomiting. Her vital signs are normal. She was here earlier today and diagnosed with a UTI. Her urine suggest UTI. CBC and complete metabolic panel were normal. The CT scan of the abdomen pelvis revealed a small right ovarian cyst otherwise unremarkable. The patient was told the results of the test. The patient was given IV fluids and IV Rocephin as well as some IV Zofran. Discharge. Medication Reconcilliation Current Medication List: was personally reviewed by me Blood Pressure Screening Patient's blood pressure: Normal blood pressure Impression Primary Impression: UTI (lower urinary tract infection) Additional Impression: Right ovarian cyst Scribe Attestation The scribe's documentation has been prepared under my direction and personally reviewed by me in its entirety. I confirm that the note above accurately reflects all work, treatment, procedures, and medical decision making performed by me. Departure Information Dispostion Home / Self-Care Referrals Haydee Hernandes D.O. (PCP) Forms HOME CARE DOCUMENTATION FORM, IMPORTANT VISIT INFORMATION Patient Instructions My [facility] Additional Instructions Your CT scan did not show appendicitis. You have a small right ovarian cyst. If this is causing her pain, it should improve within a few days. Finish the Bactrim you were prescribed for UTI. You were given IV Rocephin here today for this as well. Follow-up with your doctor for further care and evaluation in 1-5 days. Return to the emergency department for worsening or new symptoms or any concerns. You have been examined and treated today on an emergency basis only. This is not a substitute for, or an effort to provide, complete comprehensive medical care. It is impossible to recognize and treat all injuries or illnesses in a single emergency department visit. It is therefore important that you follow up closely with your doctor. Call as soon as possible for an appointment. Problem Qualifiers
[2017-06-08 23:41] VITALS: BP 102/68; PULSE 99; O2SAT 99
== END 2017-06-08 23:42 | disposition home or self-care (01) ==
LOC: C.EDB 17:55
DX: N39.0 Urinary tract infection, site not specified (principal); N83.201 Unspecified ovarian cyst, right side; F17.200 Nicotine dependence, unspecified, uncomplicated; Z91.048 Other nonmedicinal substance allergy status

== ENCOUNTER 2017-09-06 14:50 | Emergency (ER) | payer OTHER ==
[~2017-09-06] VITALS: Ht 157.5 cm; Wt 54.9 kg
[2017-09-06 14:54] VITALS: TEMP 36.9; Ht 157.5 cm; Wt 54.9 kg
[2017-09-06] MEDS ORDERED: SODIUM CHLORIDE 0.9% 1000ML 1,000 ML IV STA (15:36)
--- NOTE | 2017-09-06 16:12 | EMERGENCY ROOM VISIT NOTE ---
ED Visit Note First contact with patient: 15:20 CHIEF COMPLAINT: Vaginal bleeding HISTORY OF PRESENT ILLNESS: This 22-year-old female presents to the emergency department with complaint of heavy vaginal bleeding. She states that she started to have bleeding yesterday, and had a large gush at work that went through her underwear and soaked her pants. She states that she passed several small clots and had to change her pad and tampon several times for about an hour , but states the bleeding has now slowed down and almost stopped. She states that she called her straight edger, who told her to come to the emergency department to make sure she is not anemic from the bleeding. She has had some mild abdominal cramping that she states is similar to period cramps, she currently denies any pain, and rates 0/10. She denies any severe abdominal pain , back pain, fevers or chills. She denies any nausea or vomiting. She states her last menstrual period was 7/17 and was normal. She is on oral control and states that she has not missed any pills. Her menstrual periods are usually regular. She has had some intermittent lightheadedness, but denies syncope, headache, chest pain, shortness of breath, or weakness. She does not believe that she is , but she is not sure. REVIEW OF SYSTEMS: A complete 10 point review of systems was reviewed with the patient with pertinent positives and negatives as per history of present illness. All else were negative. PMH: The patient is healthy; there is no significant medical or surgical history. SOCIAL HISTORY: Patient lives at home. PHYSICAL EXAM: Vital Signs: Reviewed Nurse's notes. There was no postural hypotension or tachycardia. CONSTITUTIONAL: No acute distress. No pallor. Well appearing and well nourished. HEENT: Normocephalic, atraumatic. Normal conjunctiva bilaterally, not pale. Moist mucous membranes. NECK: Supple, full active range of motion without discomfort. RESPIRATORY: Clear to auscultation bilaterally with no wheezing, crackles, rhonchi or stridor. Equal expansion bilaterally. CARDIOVASCULAR: Regular rate and rhythm with no murmurs, rubs or gallops. Normal peripheral perfusion. No edema. GASTROINTESTINAL: Soft, nontender, nondistended. Bowel sounds present in all quadrants. PELVIC EXAM: Deferred per patient request. MUSCULOSKELETAL: Full range of motion of all joints without discomfort. INTEGUMENTARY: No rash or other significant dermatologic conditions noted. NEUROLOGIC: Alert and oriented X 4 with normal affect. Normal speech. Normal gait observed. EMERGENCY DEPARTMENT COURSE: I examined the patient. The abdomen is nontender. Orders were placed at the bedside for labs, UA and urine , IV fluids for hydration. No anemia noted on labs. She is not . No other abnormalities noted. She continues to deny any abdominal pain. She has not had any further heavy vaginal bleeding while in the emergency department. She preferred not to do a pelvic exam, given the lack of abdominal or pelvic pain and that her bleeding has stopped, I do not feel a pelvic exam is warranted at this time. Patient was encouraged to follow closely with her straight edger regarding her abnormal vaginal bleeding, and was given strict return precautions should her symptoms worsen, she verbalized understanding. Patient was discharged home in stable condition and ambulatory. Problem List Medical Problems: (1) Neck muscle strain Status: Resolved (2) Neck muscle strain Status: Resolved (3) Pneumonia Status: Resolved (4) Urinary tract infection Status: Resolved (5) Urinary tract infection Status: Resolved (6) Yeast infection Status: Resolved Current/Historical Medications No Active Prescriptions or Reported Meds Allergies Coded Allergies: Lanolin (Verified Allergy, Unknown, HIVES, 09/06/17) Vital Signs Date Time Temp Pulse Resp B/P (MAP) Pulse Ox O2 Delivery O2 Flow Rate FiO2 09/06/17 17:56 85 119/72 98 09/06/17 16:17 87 119/64 97 Room Air 09/06/17 14:54 36.9 98 18 118/73 97 Room Air Laboratory Results 09/06/17 15:54 Red Blood Count 4.95, Mean Corpuscular Volume 90.5, Mean Corpuscular Hemoglobin 31.5, Mean Corpuscular Hemoglobin Concent 34.8, Mean Platelet Volume 11.0, Neutrophils (%) (Auto) 61.6, Lymphocytes (%) (Auto) 30.0, Monocytes (%) (Auto) 7.6, Eosinophils (%) (Auto) 0.3, Basophils (%) (Auto) 0.4, Neutrophils # (Auto) 4.55, Lymphocytes # (Auto) 2.22, Monocytes # (Auto) 0.56, Eosinophils # (Auto) 0.02, Basophils # (Auto) 0.03 09/06/17 15:54 Test 09/06/17 15:54 09/06/17 16:48 White Blood Count 7.39 K/uL (4.8-10.8) Red Blood Count 4.95 M/uL (4.2-5.4) Hemoglobin 15.6 g/dL (12.0-16.0) Hematocrit 44.8 % (37-47) Mean Corpuscular Volume 90.5 fL (80-100) Mean Corpuscular Hemoglobin 31.5 pg (25-34) Mean Corpuscular Hemoglobin Concent 34.8 g/dl (32-36) Platelet Count 227 K/uL (130-400) Mean Platelet Volume 11.0 fL (7.4-10.4) Neutrophils (%) (Auto) 61.6 % Lymphocytes (%) (Auto) 30.0 % Monocytes (%) (Auto) 7.6 % Eosinophils (%) (Auto) 0.3 % Basophils (%) (Auto) 0.4 % Neutrophils # (Auto) 4.55 K/uL (1.4-6.5) Lymphocytes # (Auto) 2.22 K/uL (1.2-3.4) Monocytes # (Auto) 0.56 K/uL (0.11-0.59) Eosinophils # (Auto) 0.02 K/uL (0-0.5) Basophils # (Auto) 0.03 K/uL (0-0.2) RDW Standard Deviation 40.5 fL (36.4-46.3) RDW Coefficient of Variation 12.3 % (11.5-14.5) Immature Granulocyte % (Auto) 0.1 % Immature Granulocyte # (Auto) 0.01 K/uL (0.00-0.02) Urine Color YELLOW Urine Appearance TURBID (CLEAR) Urine pH 7.5 (4.5-7.5) Urine Specific [place] 1.021 (1.000-1.030) Urine Protein NEG (NEG) Urine Glucose (UA) NEG (NEG) Urine Ketones NEG (NEG) Urine Occult Blood 1+ (NEG) Urine Nitrite NEG (NEG) Urine Bilirubin NEG (NEG) Urine Urobilinogen NEG (NEG) Urine Leukocyte Esterase TRACE (NEG) Urine WBC (Auto) 5-10 /hpf (0-5) Urine RBC (Auto) 0-4 /hpf (0-4) Urine Hyaline Casts (Auto) 1-5 /lpf (0-5) Urine Epithelial Cells (Auto) 20-30 /lpf (0-5) Urine Bacteria (Auto) NEG (NEG) Urine Test NEG (NEG) Anion Gap 6.0 mmol/L (3-11) Est Creatinine Clear Calc Drug Dose 79.8 ml/min Estimated GFR () 109.6 Estimated GFR (Non- 94.6 BUN/Creatinine Ratio 17.9 (10-20) Calcium Level 8.7 mg/dl (8.5-10.1) Total Bilirubin 0.5 mg/dl (0.2-1) Aspartate Amino Transf (AST/SGOT) 19 U/L (15-37) Alanine Aminotransferase (ALT/SGPT) 18 U/L (12-78) Alkaline Phosphatase 88 U/L (45-117) Total Protein 7.7 gm/dl (6.4-8.2) Albumin 3.9 gm/dl (3.4-5.0) Globulin 3.8 gm/dl (2.5-4.0) Albumin/Globulin Ratio 1.0 (0.9-2) Prothrombin Time 11.4 SECONDS (9.0-12.0) Prothromb Time International Ratio 1.1 (0.9-1.1) Activated Partial Thromboplast Time 27.8 SECONDS (21.0-31.0) Partial Thromboplastin Ratio 1.1 Medications Administered Medications (Trade) Dose Ordered Sig/Jose Route Start Time Stop Time Status Last Admin Dose Admin Sodium Chloride 1,000 ml @ 999 mls/hr Q1H1M STAT IV 09/06/17 15:36 09/06/17 16:36 DC 09/06/17 16:17 999 MLS/HR Departure Information Impression Primary Impression: Abnormal vaginal bleeding Dispostion Home / Self-Care Condition GOOD Prescriptions No Active Prescriptions or Reported Meds Referrals Haydee Hernandes D.O. (PCP) Patient Instructions ED Bleed Irregular Vaginal, My [facility] Additional Instructions You have been evaluated and treated in the emergency department today for your abnormal vaginal bleeding. Laboratory results have ruled out any emergent causes for your symptoms which would warrant admission to the hospital. For abdominal cramping and bleeding, you may take regular strength (200 mg/tab) Advil (ibuprofen) 3 tabs every 6-8 hours as needed. Do not exceed a dose of 2400 mg per day. You may also use a heating pad to your abdomen to help with abdominal cramping. Drink plenty of fluids to stay well hydrated. Please follow-up with your straight edger regarding your abnormal bleeding. Call for an appointment. Please return to the ER for worsening symptoms, including severe pain, persistent heavy bleeding (soaking through 2 or more pads/tampons per hour or passing clots the size of your fist), fever/chills, severe dizziness or passing out, or any other concerns. Work Instructions Return To Work: 2 days
[2017-09-06 16:23] LABS: BASO % 0.4 %; BASO ABS # 0.03 K/uL (0-0.2); EOS % 0.3 %; EOS ABS # 0.02 K/uL (0-0.5); HEMATOCRIT 44.8 % (37-47); HEMOGLOBIN 15.6 g/dL (12.0-16.0); IG# 0.01 K/uL (0.00-0.02); LYMPH ABS # 2.22 K/uL (1.2-3.4); MEAN CELL VOLUME 90.5 fL (80-100); MEAN CORPUSCULAR HEMOGLOBIN 31.5 pg (25-34); MEAN CORPUSCULAR HGB CONC 34.8 g/dl (32-36); MONO % 7.6 %; MONO ABS # 0.56 K/uL (0.11-0.59); NEUT % 61.6 %; NEUT ABS # 4.55 K/uL (1.4-6.5); PLATELET COUNT 227 K/uL (130-400); RED CELL DISTRIBUTION WIDTH CV 12.3 % (11.5-14.5); RED CELL DISTRIBUTION WIDTH SD 40.5 fL (36.4-46.3); WHITE BLOOD COUNT 7.39 K/uL (4.8-10.8)
[2017-09-06 16:39] LABS: ALBUMIN 3.9 gm/dl (3.4-5.0); CALCIUM 8.7 mg/dl (8.5-10.1); CREATININE 0.86 mg/dl (0.60-1.20); POTASSIUM 3.5 mmol/L (3.5-5.1); TOTAL PROTEIN 7.7 gm/dl (6.4-8.2)
[2017-09-06 17:14] LABS: INR 1.1 (0.9-1.1); PTT PATIENT 27.8 SECONDS (21.0-31.0)
[2017-09-06 17:56] VITALS: BP 119/72; PULSE 85; O2SAT 98
== END 2017-09-06 18:03 | disposition home or self-care (01) ==
LOC: C.EDB 14:51 → C.EDA 18:03
DX: N93.9 Abnormal uterine and vaginal bleeding, unspecified (principal); R10.9 Unspecified abdominal pain; Z91.048 Other nonmedicinal substance allergy status

== ENCOUNTER 2018-02-15 10:47 | Observation (INO) ==
[2018-02-15] MEDS ORDERED: SODIUM CHLORIDE 0.9% 1000ML 500 ML IV ONE (11:12)
--- NOTE | 2018-02-15 11:17 | Emergency Department Note ---
History of Present Illness General Chief complaint: Abdominal Pain Stated complaint: ABD PAIN/ 21 WEEKS Time Seen by Provider: 02/15/18 11:04 History of Present Illness Maximum Pain Intensity: 9 This is a 23-year-old female that presents to the emergency department via private vehicle referred from the CORE ANALYSIS OPERATOR with complaints of "abdominal pain/21 weeks ". The patient notes that this is her second . She states that she felt fine yesterday and early this morning was awoken around 0300 hrs. by sharp right-sided abdominal pain in the right lower quadrant as well as right upper quadrant that was followed by vomiting about 10 minutes later. She has vomited numerous times since then. She has associated hot/cold sensation. She numerically rates the pain is a 9/10. She notes that she was seen here in the hospital on the CORE ANALYSIS OPERATOR floor and was sent here for further evaluation and management. The patient denies any chest pain or shortness of breath. She does note that when she woke up she had minimal vaginal spotting but that has since subsided. Home Medications Home Medications Medication Instructions Recorded Confirmed Type pediatric multivitamin no.49 2 tab PO QAM 02/15/18 02/15/18 History [Flintstones Gummies] Allergies Allergy/AdvReac Type Severity Reaction Status Date / Time lanolin Allergy Unknown HIVES Verified 02/15/18 12:07 nickel Allergy Rash Verified 02/15/18 17:57 Past Med/Surg History Medical History Pneumonia (Resolved) Urinary tract infection (Resolved) Yeast infection (Resolved) Neck muscle strain (Resolved) Surgical History No pertinent past surgical history Social History marital status: Single Current Living Situation: Parent Other Information That Helps Us Care for You: No Feels Safe at Home: Yes Safety Concerns: Feels Safe At This Time Smoking Status: Never smoker Do You Dip or Chew Tobacco: No Second Hand Exposure: No Tobacco Cessation Education Requested by Patient: No Hx Alcohol Use: No Hx Substance Use: No Beliefs That Will Affect Care: None Preferred Language: Emir[place] Communication Ability: Effective Director Of Testing Required: No Review of Systems A total of 10 systems reviewed and were otherwise negative Physical Exam Vital Signs Vital Signs - 24 hr 02/15/18 10:50 02/15/18 11:31 02/15/18 13:02 Temperature 36.9 C Temperature Source Oral Sepsis Recent Fever Within 48 Hours No Sepsis New/Unexplained Change in Mental Status No Sepsis Action Taken by Nursing No Action Required Pulse Rate 115 H Pulse Rate [Finger] 98 H 105 H Pulse Rhythm [Finger] Regular Pulse Strength Normal Pulse Strength [Finger] Normal Respiratory Rate 17 18 14 Respiratory Effort / Characteristics Non-Labored Non-Labored Spontaneous Non-Labored Spontaneous Respiratory Depth Normal Normal Normal Respiratory Pattern Regular Regular Blood Pressure 108/65 Blood Pressure [Left Arm] 112/68 105/63 Blood Pressure Mean 79 Blood Pressure Mean [Left Arm] 82 77 Blood Pressure Position Sitting Blood Pressure Position [Left Arm] Pulse Oximetry 97 100 98 Oxygen Delivery Method Room Air Room Air Room Air 02/15/18 13:56 02/15/18 15:53 02/15/18 17:41 Temperature Temperature Source Sepsis Recent Fever Within 48 Hours Sepsis New/Unexplained Change in Mental Status Sepsis Action Taken by Nursing Pulse Rate Pulse Rate [Finger] 97 H 101 H 97 H Pulse Rhythm [Finger] Pulse Strength Pulse Strength [Finger] Respiratory Rate 14 18 18 Respiratory Effort / Characteristics Non-Labored Spontaneous Respiratory Depth Normal Respiratory Pattern Regular Blood Pressure Blood Pressure [Left Arm] 102/69 109/73 111/65 Blood Pressure Mean Blood Pressure Mean [Left Arm] 80 85 80 Blood Pressure Position Blood Pressure Position [Left Arm] Pulse Oximetry 96 98 99 Oxygen Delivery Method Room Air Room Air Room Air 02/15/18 17:48 Temperature 36.9 C Temperature Source Oral Sepsis Recent Fever Within 48 Hours Sepsis New/Unexplained Change in Mental Status Sepsis Action Taken by Nursing Pulse Rate Pulse Rate [Finger] 94 H Pulse Rhythm [Finger] Regular Pulse Strength Pulse Strength [Finger] Normal Respiratory Rate 18 Respiratory Effort / Characteristics Non-Labored Spontaneous Respiratory Depth Normal Respiratory Pattern Regular Blood Pressure Blood Pressure [Left Arm] 105/71 Blood Pressure Mean Blood Pressure Mean [Left Arm] 82 Blood Pressure Position Blood Pressure Position [Left Arm] Lying Pulse Oximetry 100 Oxygen Delivery Method Room Air VITAL SIGNS - Vital signs and nursing notes were reviewed. Stable. Afebrile. GENERAL -23-year-old female appearing her stated age who is in no acute distress. Patient appears to be resting comfortably in the examination bed. No active vomiting. Communicates well with provider and answers questions appropriately. SKIN - Without rashes. No meningeal or petechial rash. HEAD - NC/AT. EYES - PERRL with EOMI bilaterally. Sclera anicteric. EARS - No deformities of external structures noted on gross examination bilaterally. NOSE - Midline and without cyanosis. No epistaxis or purulent drainage noted. MOUTH/OROPHARYNX - Without perioral cyanosis. NECK - Neck with FROM. Supple to palpation. No lymphadenopathy noted. No nuchal rigidity. LUNGS - Chest wall symmetric without accessory muscle use, intercostals retractions, or central cyanosis. Normal vesicular breath sounds CTA B/L. No wheezes, rales, or rhonchi appreciated. CARDIAC - RRR with S1/S2. No murmur, rubs, or gallops appreciated. ABDOMEN - Abdominal contour normal with expected size for gestation. BS normoactive all four quadrants. Minimal right upper and right lower quadrant tenderness to palpation. No other tenderness noted. Abdomen is soft and not rigid. EXTREMITIES - No clubbing or peripheral cyanosis. No pretibial edema present. +5 /5 strength noted in UE/LE bilaterally. NEUROLOGIC - Cranial nerves II through XII grossly intact. Sensory intact to light touch throughout. PSYCH - A&O and cooperates fully with examiner. Pt is very pleasant and interacts well with examiner. Course Administered Medications Dextrose/Lactated Ringer's (D5w And Lactated Ringers) 1,000 mls @ 150 mls/hr IV .Q6H40M [facility] Stop: 03/17/18 17:50 Last Admin: 02/15/18 18:42 Dose: 150 mls/hr Morphine Sulfate (Morphine Sulfate) 2 mg IV Q4H PRN PRN Reason: Severe Pain Stop: 03/01/18 17:50 Last Admin: 02/15/18 18:25 Dose: 2 mg Discontinued Medications Acetaminophen (Tylenol) 500 mg PO NOW STA Stop: 02/15/18 11:23 Last Admin: 02/15/18 11:27 Dose: 500 mg Sodium Chloride (Nss 1000ml) 500 mls @ 999 mls/hr IV .Q31M ONE Stop: 02/15/18 11:42 Last Infusion: 02/15/18 11:57 Dose: 0 mls/hr Admin: 02/15/18 11:26 Dose: 999 mls/hr Metronidazole (Flagyl) 500 mg in 100 mls @ 100 mls/hr IV NOW STA Stop: 02/15/18 13:26 Last Infusion: 02/15/18 13:59 Dose: 0 mls/hr Admin: 02/15/18 12:59 Dose: 100 mls/hr Morphine Sulfate (Morphine Sulfate) 2 mg IV NOW STA Stop: 02/15/18 13:26 Last Admin: 02/15/18 13:34 Dose: 2 mg Medical Decision Making Laboratory Data Result diagrams: 02/15/18 11:20 02/15/18 11:20 Lab Results 02/15/18 02/15/18 02/15/18 Range/Units 11:20 11:20 11:30 WBC 10.91 H (4.8-10.8) K/uL RBC 4.25 (4.2-5.4) M/uL Hgb 13.4 (12.0-16.0) g/dL Hct 38.6 (37-47) % MCV 90.8 (80-100) fL MCH 31.5 (25-34) pg MCHC 34.7 (32-36) g/dL RDW Std Deviation 42.8 (36.4-46.3) fL RDW Coeff of Haily 13.0 (11.5-14.5) % Plt Count 184 (130-400) K/uL MPV 10.3 (7.4-10.4) fL Immature Gran % (Auto) 0.2 % Neut % (Auto) 88.8 % Lymph % (Auto) 4.9 % Jones % (Auto) 5.9 % Eos % (Auto) 0.1 % Baso % (Auto) 0.1 % Immature Gran # (Auto) 0.02 (0.00-0.02) K/uL Neut # (Auto) 9.70 H (1.4-6.5) K/uL Lymph # (Auto) 0.53 L (1.2-3.4) K/uL Jones # (Auto) 0.64 H (0.11-0.59) K/uL Eos # (Auto) 0.01 (0-0.5) K/uL Baso # (Auto) 0.01 (0-0.2) K/uL Sodium 137 (136-145) mmol/L Potassium 3.3 L (3.5-5.1) mmol/L Chloride 107 (98-107) mmol/L Carbon Dioxide 24 (21-32) mmol/L Anion Gap 6.0 (3-11) BUN 8 (7-18) mg/dl Creatinine 0.55 L (0.6-1.2) mg/dl Est Cr Clr Drug Dosing 129.0 ml/min Est GFR ( Amer) > 150.0 Est GFR (Non-Af Amer) 130.4 BUN/Creatinine Ratio 14.5 (10-20) Glucose 77 (70-99) mg/dl Calcium 8.0 L (8.5-10.1) mg/dl Total Bilirubin 0.5 (0.2-1) mg/dl AST 13 L (15-37) U/L ALT 17 (12-78) U/L Alkaline Phosphatase 93 (45-117) U/L Total Protein 6.6 (6.4-8.2) gm/dl Albumin 2.7 L (3.4-5.0) gm/dl Globulin 3.9 (2.5-4.0) gm/dl Albumin/Globulin Ratio 0.7 L (0.9-2) Lipase 126 (73-393) U/L Urine Color Yellow Urine Appearance Cloudy H (Clear) Urine pH 7.0 (4.5-7.5) Ur Specific [place] 1.019 (1.000-1.030) Urine Protein Negative (Negative) Urine Glucose (UA) Negative (Negative) Urine Ketones 2+ H (Negative) Urine Blood Negative (Negative) Urine Nitrite Negative (Negative) Urine Bilirubin Negative (Negative) Urine Urobilinogen Negative (Negative) Ur Leukocyte Esterase Negative (Negative) Urine WBC (Auto) 1-5 (0-5) /hpf Urine RBC (Auto) 0-4 (0-4) /hpf U Hyaline Cast (Auto) 1-5 (0-5) /lpf U Epithel Cells (Auto) >30 H (0-5) /lpf Urine Bacteria (Auto) 2+ H (Negative) Ur Renal Epithelial Cell 0-5 (0-5) /lpf Imaging Data Radiologist's Impression: US gallbladder CLINICAL HISTORY: Right upper quadrant abdominal pain. . COMPARISON STUDY: CT of the abdomen and pelvis June 08, 2017. FINDINGS: Liver is sonographically normal. There is no biliary ductal dilatation. The gallbladder is normal. There are no gallstones. The pancreas is largely obscured by overlying bowel gas. Note is made of interval development of moderate right hydronephrosis. There are possible right renal calculi. IMPRESSION: 1. Interval development of moderate right hydronephrosis. Differential considerations include mass effect upon the ureter by the gravid uterus or an occult ureteral calculus. 2. Equivocal right-sided nephrolithiasis. 3. No gallstones or biliary ductal dilatation. Electronically signed by: Jose Barreto M.D. 02/15/2018 12:51 PM US appendix CLINICAL HISTORY: Right upper quadrant, and left lower quadrant abdominal pain COMPARISON STUDY: No previous studies for comparison. FINDINGS: Ultrasonographic evaluation of the right lower quadrant was performed. The appendix was not visualized. No abnormal fluid collections were evident. IMPRESSION: Nonvisualization of the appendix. This examination is therefore nondiagnostic in regards to acute appendicitis Electronically signed by: Low Bo M.D. 02/15/2018 12:48 PM MR abdomen wo con CLINICAL HISTORY: R abd pain, 21 weeks . TECHNIQUE: Imaging was performed without IV contrast enhancement. COMPARISON STUDY: Gallbladder and appendiceal ultrasound dated 02/15/2018 FINDINGS: Imaging was performed in the axial and coronal planes. There is a gravid uterus. No hepatic or splenic masses are visualized this noncontrast study. There are no transition zones indicate bowel obstruction. There is mild dilatation of the right renal collecting system. There is no evidence of acute appendicitis. A normal appendix is visualized in image #16 of the axial FIESTA sequence. The study is moderately compromised due to motion artifact. IMPRESSION: 1. No evidence of bowel obstruction 2. Normal appendix 3. No acute inflammatory changes 4. Mild dilatation of the right renal pelvis 5. Gravid uterus Electronically signed by: Low Bo M.D. 02/15/2018 3:00 PM [facility] Narrative Patient was seen and evaluated as above in room D2. Review was performed of nursing notes and vital signs. After obtaining a thorough history and physical examination the above work up was performed. She presents to us today referred by the CORE ANALYSIS OPERATOR with right-sided abdominal pain. She is nontoxic on examination and yield stable vital signs. This began abruptly at 0300 hours today. Upon arrival she was given Tylenol for pain. IV access was established. Ultrasounds were obtained of the right upper quadrant and right lower quadrant. I suspect the hydro-may be from the gestation. It was noted that she had clue cells upon vaginal discharge inspection was performed just prior to arrival by the OB. Flagyl was recommended. MRI was obtained of the abdomen infection patient was reevaluated and still feeling pain. For further evaluation given the nondiagnostic appendix ultrasound. Results of this as above. Redemonstration of the hydronephrosis. This was given IV secondary to the patient's presumed n.p.o. status in the event that her pain could be coming from a surgical process. Benefit versus risk of additional medications were discussed. Morphine was provided. She was reevaluated and feeling better but then the pain returned and was an 8 out of 10. I discussed this further with OB /TECHNICAL SALES SUPPORT SPECIALIST and decision was made to admit the patient further evaluation and management. I discussed the findings then with the medicine team. Please refer to further documentation regarding her stay. The patient was educated upon management, educated upon todays findings/results, educated upon symptoms in which to return, had questions answered prior to discharge, and was discharged home in good condition. Case was discussed with the attending physician. In the evaluation and treatment of this patient, the following differential diagnoses were considered: ASC, UT, Pneumonia, GERD, Cholecystitis, Ascending Cholangitis, labor, ovarian torsion, miscarriage, appendicitis, diverticulitis, Cholydocholithiasis, Bowel Obstruction, PE, Amongst Others. Impression & Plan Right sided abdominal pain, Hydronephrosis, right Discharge Plan Visit Data *Final* Discharge Date/Time: 02/15/18 17:39 Chief Complaint: Abdominal Pain Stated Complaint: ABD PAIN/ 21 WEEKS ED Provider: Roberto Bueno ED Midlevel Provider: Matthwe Cheek Discharge Problem: Right sided abdominal pain, Hydronephrosis, right Patient Disposition: Admitted As Inpatient Condition: Good Discharge Instructions Interventions: ED Discharge Assessment Last Done: 02/15/18 17:39
[2018-02-15] MEDS ORDERED: ACETAMINOPHEN 500 MG TAB PO STA (11:22)
[2018-02-15 11:33] LABS: Basophils # (auto) 0.01 K/uL (0-0.2); Basophils % (auto) 0.1 %; Eosinophils # (auto) 0.01 K/uL (0-0.5); Eosinophils % (auto) 0.1 %; Hematocrit (blood only) 38.6 % (37-47); Hemoglobin 13.4 g/dL (12.0-16.0); Immature Granulocytes # (auto) 0.02 K/uL (0.00-0.02); Immature Granulocytes % (auto) 0.2 %; Lymphocytes # (auto) 0.53 K/uL (1.2-3.4); Lymphocytes % (auto) 4.9 %; Mean Corpuscular Hgb Conc 34.7 g/dL (32-36); Mean Corpuscular Volume 90.8 fL (80-100); Mean Platelet Volume 10.3 fL (7.4-10.4); Monocytes # (auto) 0.64 K/uL (0.11-0.59); Monocytes % (auto) 5.9 %; Neutrophils % (auto) 88.8 %; Platelet Count 184 K/uL (130-400); RDW Standard Deviation 42.8 fL (36.4-46.3); Red Blood Count 4.25 M/uL (4.2-5.4); White Blood Count 10.91 K/uL (4.8-10.8)
[2018-02-15 11:44] LABS: Appearance Urine Cloudy (Clear); Bacteria Urine Automated 2+ (Negative); Bilirubin Urine Negative (Negative); Color Urine Yellow; Epithelial Cell Urine Auto >30 /lpf (0-5); Glucose Urine UA Negative (Negative); Ketones Urine 2+ (Negative); Leukocyte Esterase Urine Negative (Negative); Nitrite Urine Negative (Negative); Protein Urine Negative (Negative); Specific Gravity Urine 1.019 (1.000-1.030); Urobilinogen Urine Negative (Negative)
[2018-02-15 11:48] LABS: Alanine Aminotransferase 17 U/L (12-78); Albumin Level 2.7 gm/dl (3.4-5.0); Aspartate Aminotransferase 13 U/L (15-37); BUN Creatinine Ratio 14.5 (10-20); Blood Urea Nitrogen 8 mg/dl (7-18); Carbon Dioxide 24 mmol/L (21-32); Chloride 107 mmol/L (98-107); Est GFR (African American) > 150.0; Est GFR (Non-African American) 130.4; Glucose 77 mg/dl (70-99); Potassium 3.3 mmol/L (3.5-5.1); Sodium 137 mmol/L (136-145)
[2018-02-15 11:51] LABS: Albumin Globulin Ratio 0.7 (0.9-2); Alkaline Phosphatase 93 U/L (45-117); Bilirubin,Total 0.5 mg/dl (0.2-1); Globulin 3.9 gm/dl (2.5-4.0); Total Protein 6.6 gm/dl (6.4-8.2)
[2018-02-15 11:57] LABS: Renal Epithelial Cells Urine 0-5 /lpf (0-5)
[2018-02-15] MEDS ORDERED: metroNIDAZOLE 500 MG/100 ML BAG IV STA (12:27)
--- NOTE | 2018-02-15 12:49 | Ultrasound Report ---
US appendix CLINICAL HISTORY: Right upper quadrant, and left lower quadrant abdominal pain COMPARISON STUDY: No previous studies for comparison. FINDINGS: Ultrasonographic evaluation of the right lower quadrant was performed. The appendix was not visualized. No abnormal fluid collections were evident. IMPRESSION: Nonvisualization of the appendix. This examination is therefore nondiagnostic in regards to acute appendicitis Electronically signed by: Low Bo M.D. 02/15/2018 12:48 PM
--- NOTE | 2018-02-15 12:52 | Ultrasound Report ---
US gallbladder CLINICAL HISTORY: Right upper quadrant abdominal pain. . COMPARISON STUDY: CT of the abdomen and pelvis June 08, 2017. FINDINGS: Liver is sonographically normal. There is no biliary ductal dilatation. The gallbladder is normal. There are no gallstones. The pancreas is largely obscured by overlying bowel gas. Note is mad e of interval development of moderate right hydronephrosis. There are possible right renal calculi. IMPRESSION: 1. Interval development of moderate right hydronephrosis. Differential considerations include mass ef fect upon the ureter by the gravid uterus or an occult ureteral calculus. 2. Equivocal right-sided nephrolithiasis. 3. No gallstones or biliary ductal dilatation. Electronically signed by: Jose Barreto M.D. 02/15/2018 12:51 PM
[2018-02-15] MEDS ORDERED: MoRPHine SULFATE 2 MG/ML CARP IV STA (13:25)
--- NOTE | 2018-02-15 15:02 | Magnetic Resonance Report ---
MR abdomen wo con CLINICAL HISTORY: R abd pain, 21 weeks . TECHNIQUE: Imaging was performed without IV contrast enhancement. COMPARISON STUDY: Gallbladder and appendiceal ultrasound dated 02/15/2018 FINDINGS: Imaging was performed in the axial and coronal planes. There is a gravid uterus. No hepatic or splenic masses are visualized this noncontrast study. There are no transition zones indicate bowel obstruction. There is mild dilatation of the right renal collecting system. There is no evidence of acute appendicitis. A normal appendix is visualized in image #16 of the axial FIESTA sequence. The study is moderately compromised due to motion artifact. IMPRESSION: 1. No evidence of bowel obstruction 2. Normal appendix 3. No acute inflammatory changes 4. Mild dilatation of the right renal pelvis 5. Gravid uterus Electronically signed by: Low Bo M.D. 02/15/2018 3:00 PM
--- NOTE | 2018-02-15 17:00 | History & Physical Report ---
Date of Service February 15, 2018 Assessment & Plan (1) Right sided abdominal pain: 21 week IUP. Acute onset RLQ pain with nausea and vomiting. Appendix not visualized by US, but appeared normal per MRI. No apparent biliary tract pathology. Right hydronephrosis and possible right nephrolithiasis noted on imaging. Patient may have passed a urinary calculus. Urine culture pending. Pelvic exam per TRUCK DRIVER SALESPERSON demonstrated suspected bacterial vaginosis, but no evidence of acute process related to . Patient referred for admission to Hospital Medicine Service. Initial management will consist of clear liquids, IV fluids. Analgesic management discussed with TRUCK DRIVER SALESPERSON and ordered. Hopefully, symptoms will improve. If not, consultation with General Surgery and / or Urology may be warranted. (2) Hydronephrosis, right: Noted on US and MRI. Discussed with TRUCK DRIVER SALESPERSON. Hydronephrosis may be secondary to gravid uterus. Management / follow-up per TRUCK DRIVER SALESPERSON. (3) Intrauterine : Management per TRUCK DRIVER SALESPERSON. (4) Vaginosis: Suspected bacterial vaginosis. Rx with metronidazole recommended. Will order IV route until able to take oral meds. (5) Hypokalemia: K 3.3. IV fluids with KCL. Recheck labs in a.m. (6) DVT prophylaxis: SCD's. Ambulate. (7) Discharge planning issues: Expected discharge to home. Follow-up with TRUCK DRIVER SALESPERSON. Family Medicine follow-up with Dr. Haydee Hernandes. History of Present Illness Chief Complaint: abdominal pain Primary Care Provider: Haydee Hernandes 23-year-old female followed by Dr. Haydee Hernandes for Family Medicine. . Currently with gestational age of 21 weeks. thus far has been uncomplicated. Developed right lower quadrant abdominal/pelvic pain this morning. Pain was severe, rated 9 out of 10. It was associated with nausea and vomiting. She has had a vaginal discharge for a few weeks. No vaginal bleeding. No hematuria or dysuria. No fever. She came to the hospital for evaluation. Evaluated by TRUCK DRIVER SALESPERSON. Pelvic exam suggested bacterial vaginosis. Therapy with metronidazole recommended and was given intravenously because of her nausea and vomiting. Persistent severe right lower quadrant abdominal pain despite administration of IV morphine. Allergies Allergy/AdvReac Type Severity Reaction Status Date / Time lanolin Allergy Unknown HIVES Verified 02/15/18 12:07 nickel Allergy Rash Verified 02/15/18 17:57 Home Medications Home Medications Medication Instructions Recorded Confirmed Type pediatric multivitamin no.49 2 tab PO QAM 02/15/18 02/15/18 History [Flintstones Gummies] Past Med/Surg History Medical History Pneumonia (Resolved) Urinary tract infection (Resolved) Yeast infection (Resolved) Neck muscle strain (Resolved) Surgical History No pertinent past surgical history Family History Father Diabetes mellitus Stroke Social History marital status: Single Current Living Situation: Parent Other Information That Helps Us Care for You: No Feels Safe at Home: Yes Safety Concerns: Feels Safe At This Time Smoking Status: Never smoker Do You Dip or Chew Tobacco: No Second Hand Exposure: No Tobacco Cessation Education Requested by Patient: No Hx Alcohol Use: No Hx Substance Use: No Beliefs That Will Affect Care: None Preferred Language: Greek Communication Ability: Effective American History Professor Required: No Review of Systems As noted above in HPI. Physical Exam 2 Vital Signs (Past 24 Hours): Last Vital Signs Temp 36.9 C 02/15/18 10:50 Pulse 101 H 02/15/18 15:53 Resp 18 02/15/18 15:53 BP 109/73 02/15/18 15:53 Pulse Ox 98 02/15/18 15:53 Constitutional: WD/WN, vitals as above Eyes: + anicteric sclerae Neck: trachea midline, no thyromegaly Respiratory: normal respiratory effort, lungs clear to auscultation Cardiovascular: Rate/Rhythm: regular rhythm and + tachycardic Heart Sounds : + murmur (I/ systolic murmur at base) Extremities: no calf tenderness and no edema Gastrointestinal (Abdomen): Inspection/Auscultation: normal bowel sounds Percussion/Palpation: + abdomen tender (RLQ) gravid uterus Skin: no rashes, warm and dry Psychiatric: A+Ox3, euthymic affect Results & Data Laboratory Results Laboratory Results - last 24 hr 02/15/18 02/15/18 02/15/18 11:20 11:20 11:30 WBC 10.91 H RBC 4.25 Hgb 13.4 Hct 38.6 MCV 90.8 MCH 31.5 MCHC 34.7 RDW Std Deviation 42.8 RDW Coeff of Haily 13.0 Plt Count 184 MPV 10.3 Immature Gran % (Auto) 0.2 Neut % (Auto) 88.8 Lymph % (Auto) 4.9 [place] % (Auto) 5.9 Eos % (Auto) 0.1 Baso % (Auto) 0.1 Immature Gran # (Auto) 0.02 Neut # (Auto) 9.70 H Lymph # (Auto) 0.53 L [place] # (Auto) 0.64 H Eos # (Auto) 0.01 Baso # (Auto) 0.01 Sodium 137 Potassium 3.3 L Chloride 107 Carbon Dioxide 24 Anion Gap 6.0 BUN 8 Creatinine 0.55 L Est Cr Clr Drug Dosing 129.0 Est GFR ( Amer) > 150.0 Est GFR (Non-Af Amer) 130.4 BUN/Creatinine Ratio 14.5 Glucose 77 Calcium 8.0 L Total Bilirubin 0.5 AST 13 L ALT 17 Alkaline Phosphatase 93 Total Protein 6.6 Albumin 2.7 L Globulin 3.9 Albumin/Globulin Ratio 0.7 L Lipase 126 Urine Color Yellow Urine Appearance Cloudy H Urine pH 7.0 Ur Specific Hiram 1.019 Urine Protein Negative Urine Glucose (UA) Negative Urine Ketones 2+ H Urine Blood Negative Urine Nitrite Negative Urine Bilirubin Negative Urine Urobilinogen Negative Ur Leukocyte Esterase Negative Urine WBC (Auto) 1-5 Urine RBC (Auto) 0-4 U Hyaline Cast (Auto) 1-5 U Epithel Cells (Auto) >30 H Urine Bacteria (Auto) 2+ H Ur Renal Epithelial Cell 0-5 Diagnostic Findings ULTRASOUND APPENDIX: IMPRESSION: Nonvisualization of the appendix. This examination is therefore nondiagnostic in regards to acute appendicitis. Electronically signed by: Low Bo M.D. 02/15/2018 12:48 PM ULTRASOUND RUQ: IMPRESSION: 1. Interval development of moderate right hydronephrosis. Differential considerations include mass effect upon the ureter by the gravid uterus or an occult ureteral calculus. 2. Equivocal right-sided nephrolithiasis. 3. No gallstones or biliary ductal dilatation. Electronically signed by: Jose Barreto M.D. 02/15/2018 12:51 PM MRI ABDOMEN: IMPRESSION: 1. No evidence of bowel obstruction 2. Normal appendix 3. No acute inflammatory changes 4. Mild dilatation of the right renal pelvis 5. Gravid uterus Electronically signed by: Low Bo M.D. 02/15/2018 3:00 PM
[2018-02-15] MEDS ORDERED: metroNIDAZOLE 500 MG/100 ML BAG IV SCH (17:51)
[2018-02-15] MEDS ORDERED: ONDANSETRON INJ 2 MG/ML 2 ML VIAL IV PRN (17:51)
[2018-02-15] MEDS ORDERED: ACETAMINOPHEN 325 MG TAB PO PRN (17:51)
[2018-02-15] MEDS ORDERED: D5W AND LACTATED RINGERS 1,000 ML IV SCH (17:51)
[2018-02-15] MEDS: MoRPHine SULFATE 2 MG/ML CARP IV PRN (18:25)
[2018-02-15] MEDS: metroNIDAZOLE 500 MG/100 ML BAG IV SCH (21:42)
[2018-02-15] MEDS: POTASSIUM CHLORIDE 40 MEQ in SODIUM CHLORIDE 0.9% 1000ML 1,000 ML IV SCH (21:58)
[2018-02-16] MEDS: MoRPHine SULFATE 2 MG/ML CARP IV PRN ×4 (00:03→14:02)
[2018-02-16] MEDS: POTASSIUM CHLORIDE 40 MEQ in SODIUM CHLORIDE 0.9% 1000ML 1,000 ML IV SCH ×2 (06:02→14:07)
[2018-02-16 06:15] LABS: Hematocrit (blood only) 34.8 % (37-47); Hemoglobin 11.9 g/dL (12.0-16.0); Mean Corpuscular Hgb Conc 34.2 g/dL (32-36); Mean Corpuscular Volume 91.6 fL (80-100); Mean Platelet Volume 9.9 fL (7.4-10.4); Platelet Count 170 K/uL (130-400); RDW Coefficient of Variation 13.1 % (11.5-14.5); RDW Standard Deviation 43.5 fL (36.4-46.3); White Blood Count 5.39 K/uL (4.8-10.8)
[2018-02-16 06:57] LABS: BUN Creatinine Ratio 10.1 (10-20); Blood Urea Nitrogen 5 mg/dl (7-18); Calcium 7.4 mg/dl (8.5-10.1); Carbon Dioxide 23 mmol/L (21-32); Chloride 111 mmol/L (98-107); Est GFR (African American) > 150.0; Est GFR (Non-African American) 137.3; Glucose 77 mg/dl (70-99); Potassium 3.8 mmol/L (3.5-5.1); Sodium 138 mmol/L (136-145)
[2018-02-16] MEDS: metroNIDAZOLE 500 MG/100 ML BAG IV SCH ×2 (09:03→21:18)
[2018-02-16] MEDS: FLINTSTONES COMPLETE CHEWABLE TAB PO SCH (09:03)
--- NOTE | 2018-02-16 16:29 | Hospitalist Progress Note ---
Date of Service February 16, 2018 Assessment & Plan (1) Right sided abdominal pain: continues to have rt flank pain pt is 21 week presented with Acute onset RLQ pain with nausea and vomiting. Appendix not visualized by US, but appeared normal per MRI. No apparent biliary tract pathology. Right hydronephrosis and possible right nephrolithiasis noted on imaging. Urine culture-ordered Pelvic exam per CUSTOMER ENERGY SPECIALIST demonstrated suspected bacterial vaginosis, but no evidence of acute pt has + rt flank pain with radiation to rt groin Urology consult requested (2) Hydronephrosis, right: Noted on US and MRI. Urology eval requested (3) Intrauterine : 2nd trimester /21 week Management per CUSTOMER ENERGY SPECIALIST. (4) Vaginosis: Suspected bacterial vaginosis. PO Metronidazole ordered (5) Hypokalemia: corrected (6) DVT prophylaxis: SCD's. Ambulate. (7) Discharge planning issues: Expected discharge to home. Follow-up with CUSTOMER ENERGY SPECIALIST. Family Medicine follow-up with Dr. Haydee Hernandes. Subjective afebrile no nausea /vomiting tolerating diet well complains of pain on rt groin area with radiation to rt flank no urinary symptom Physical Exam 2 Vital Signs (Past 24 Hours): Last Vital Signs Temp 36.8 C 02/16/18 15:00 Pulse 91 H 02/16/18 15:00 Resp 16 02/16/18 15:00 BP 106/71 02/16/18 15:00 Pulse Ox 99 02/16/18 15:00 Constitutional: WD/WN, vitals as above no acute distress Eyes: + anicteric sclerae ENMT: external ear and nose normal, oropharynx normal Neck: trachea midline, no thyromegaly Respiratory: normal respiratory effort, lungs clear to auscultation Cardiovascular: RRR, no murmur, no edema Gastrointestinal (Abdomen): Percussion/Palpation: abdomen soft; abdomen nontender (rt flank pain + /gravid uterus ) Musculoskeletal: no cyanosis or clubbing, extremities motor strength 5/5 Skin: no rashes, warm and dry Neurologic: PERRL, EOMI, accommodation nl, no face palsy, no dysarthria Psychiatric: A+Ox3, euthymic affect
[2018-02-16] MEDS: ACETAMINOPHEN 1000 MG/100 ML IV IV PRN (17:12)
[2018-02-16] MEDS ORDERED: MoRPHine SULFATE 2 MG/ML CARP IV STA (18:22)
--- NOTE | 2018-02-16 19:21 | Obstetrical Progress Note ---
Date of Service February 16, 2018 Physical Exam 2 Vital Signs (Past 24 Hours): Last Vital Signs Temp 36.8 C 02/16/18 15:00 Pulse 91 H 02/16/18 15:00 Resp 16 02/16/18 15:00 BP 106/71 02/16/18 15:00 Pulse Ox 99 02/16/18 15:00 Physical Exam: right flank pain persists has not decreased urology consulted
[2018-02-17] MEDS: ACETAMINOPHEN 1000 MG/100 ML IV IV PRN (03:58)
[2018-02-17] MEDS: metroNIDAZOLE 500 MG TAB PO SCH ×2 (09:07→13:57)
[2018-02-17] MEDS: FLINTSTONES COMPLETE CHEWABLE TAB PO SCH (09:07)
[2018-02-17] MEDS ORDERED: MoRPHine SULFATE 2 MG/ML CARP IV STA (11:48)
--- NOTE | 2018-02-17 12:14 | Discharge Summary ---
Date of Service February 17, 2018 Admission HPI Per Admitting Provider 23-year-old female followed by Dr. Haydee Hernandes for Family Medicine. . Currently with gestational age of 21 weeks. thus far has been uncomplicated. Developed right lower quadrant abdominal/pelvic pain this morning. Pain was severe, rated 9 out of 10. It was associated with nausea and vomiting. She has had a vaginal discharge for a few weeks. No vaginal bleeding. No hematuria or dysuria. No fever. She came to the hospital for evaluation. Evaluated by LEAD PHP DEVELOPER. Pelvic exam suggested bacterial vaginosis. Therapy with metronidazole recommended and was given intravenously because of her nausea and vomiting. Persistent severe right lower quadrant abdominal pain despite administration of IV morphine. Principal Diagnosis RIGHT SIDED HYDRONEPHROSIS , RT SIDED BACK PAIN , 21 WEEK Discharge Exam Constitutional WD/WN, vitals as above + acute distress (DUE TO RT SIDED BACK PAIN ) Eyes + anicteric sclerae ENMT external ear and nose normal, oropharynx normal Neck trachea midline, no thyromegaly Respiratory normal respiratory effort, lungs clear to auscultation Cardiovascular RRR, no murmur, no edema Gastrointestinal (Abdomen) Percussion/Palpation: + abdomen tender (RT PARASPINAL AREA TENDERNSS WITH RADITAION TO RT GROIN , NO RT CVA TENDERNESS, GRAVID UTERUS ) and abdomen soft Musculoskeletal no cyanosis or clubbing, extremities motor strength 5/5 Skin no rashes, warm and dry Neurologic PERRL, EOMI, accommodation nl, no face palsy, no dysarthria Psychiatric Orientation: alert and oriented x 3 Mood: + anxious mood Discharge Data Allergies Allergy/AdvReac Type Severity Reaction Status Date / Time lanolin Allergy Unknown HIVES Verified 02/15/18 12:07 nickel Allergy Rash Verified 02/15/18 17:57 Consultations 02/15/18 15:53 ED Decision to Admit Stat 02/15/18 17:51 Consult Obstetrics Routine 02/16/18 16:30 Consult Urology Routine Ordered Studies 02/15/18 11:11 US appendix Stat 02/15/18 11:12 US gallbladder Stat 02/15/18 13:13 MR abdomen wo con Stat Hospital Course (1) Hydronephrosis, right: Noted on US and MRI. Urology eval requested -appreciate input concern for possible obstructed stone vs UPJ obstruction pt continues to experience severe pain 10/10 ; requiring IV morphine will need CT abdomen vs IVP D/w Urology : pt is in 2 nd trimeter placing a ureteric stent may not be ideal will benefit with IR guided percutaneous drainage -not done at [facility] /needs to transfer to [facility] , [place] spoke with data communications software consultant hospitalist accepted pt for transfer pt will be transferred to [facility] via ground ACLS (2) Intrauterine : 2nd trimester /21 week appreicate LEAD PHP DEVELOPER normal finding for 2nd trimester (3) Right sided abdominal pain: due to to above continues to have rt flank pain pt is 21 week presented with Acute onset RLQ pain with nausea and vomiting. Appendix not visualized by US, but appeared normal per MRI. No apparent biliary tract pathology. Right hydronephrosis and possible right nephrolithiasis noted on imaging. Urine culture-ordered Pelvic exam per LEAD PHP DEVELOPER demonstrated suspected bacterial vaginosis, but no evidence of acute pt has + rt flank pain with radiation to rt groin Urology consult requested will be transferred to [facility] today for further care (4) Vaginosis: Suspected bacterial vaginosis. appreciate professional development instructor input PO Metronidazole ordered (5) Hypokalemia: corrected (6) UTI (urinary tract infection): urine culture alpha strep -not eneterococcus > 100,000 CFU /ml ordered for Keflex 500 mg po QID (7) DVT prophylaxis: SCD's. Ambulate. (8) Discharge planning issues: pt is transferred to [facility] for further care Accepting physician Dr Jakob Barrera MD Current Inpatient Medications Acetaminophen (Ofirmev) 1,000 mg IV Q8H PRN PRN Reason: Severe Pain Stop: 03/17/18 17:50 Last Admin: 02/17/18 03:58 Dose: 1,000 mg Acetaminophen (Tylenol) 650 mg PO Q4H PRN PRN Reason: pain/fever Stop: 03/17/18 17:50 Last Admin: 02/17/18 09:07 Dose: 650 mg Cephalexin HCl (Keflex) 500 mg PO QID [facility]; Protocol Stop: 02/27/18 12:59 Metronidazole (Flagyl) 500 mg PO TID [facility] Stop: 02/27/18 08:59 Last Admin: 02/17/18 09:07 Dose: 500 mg Multivitamins/Folic Acid/Vitamin C (Flintstones Complete Chew Tab) 2 tab PO QAM JESENIA Stop: 03/18/18 08:59 Last Admin: 02/17/18 09:07 Dose: 2 tab Ondansetron HCl (Zofran) 4 mg IV Q6H PRN PRN Reason: Nausea Stop: 03/17/18 17:50 Last Admin: 02/16/18 17:11 Dose: 4 mg Total Time Total Time Spent Total Time Spent (In Minutes): approx 40 mins Total Time Includes: Examination of the Patient, Discharge Planning, Medication Reconciliation and Communication With Other Providers Discharge Plan Discharge Items Patient Disposition: Transfer Acute Care Hospital Reason For Visit: ABDOMINAL PAIN,INTRAUTERINE Discharge Diagnosis: RT SIDED HYDRONEPHROSIS , RT SIDED BACK PAIN , 21 WK [place] Condition: Good Discharge Goals: Decrease discomfort Activity: Resume your previous activity Non-emergency contact: Primary Care Provider Call non-emergency contact if: you have any medication questions Diet: Regular Addtl Provider Instructions: PATIENT IS BEING DISCHARGED TO [facility] FOR ONGOING RT SIDED BACK /ABDOMINAL PAIN , RT SIDED HYDRONEPHROSIS MAY NEED IR GUIDED PERCUTANEOUS DRAINAGE ACCEPTING PHYSICIAN /HOSPITALIST AT [facility] DR JAKOB BARRERA MD Prescriptions: New metronidazole 500 mg Tablet 500 mg PO TID 7 Days Qty: 21 RF: 0 cephalexin 500 mg Capsule 500 mg PO QID 7 Days Qty: 28 RF: 0 Continue pediatric multivitamin no.49 [Flintstones Gummies] Tablet,Chewable 2 tab PO QAM RF: 0 Stand-Alone Forms: [facility] Discharge Orders: Discharge Order (Routine); Ordered 02/17/18 Ordered By: Yamel Dan Admission Data Admit Date/Time: 02/15/18 17:10 Attending Provider: Yamel Dan Admit Provider: Arsalan Bonilla Primary Care Provider: Haydee Hernandes Other Providers: Ralf Baldwin ; Arsalan Bonilla ; Yosef Alonso ; Satish Wu Service: Medical
[2018-02-17] MEDS ORDERED: MoRPHine SULFATE 2 MG/ML CARP IV PRN (12:28)
[2018-02-17] MEDS ORDERED: cephALEXin 500 MG CAP PO SCH (13:00)
--- NOTE | 2018-02-17 14:13 | Consultation Report ---
DATE OF CONSULTATION: 02/17/2018 REASON FOR THE CONSULT: Left hydronephrosis and left flank pain. HISTORY OF PRESENTATION: The patient is a 23-year-old female who is 21 weeks with her second child, who developed acute onset of right lower quadrant pain about 2 days ago. She notes that she previously has had onset of abdominal pain in the past, and as recently as June, she was in the hospital with a suspicion of appendicitis and a negative CAT scan. At that time, she did have a slightly dilated right collecting system on review with the radiologist. Subsequent to this, she had an ultrasound, which did not show any biliary tract pathology and an MRI which did not show obvious acute appendicitis. She did, however, have what appeared to be slightly worsening dilatation of her right collecting system without any kind of irritation of the perirenal fat. No definite stone was seen. During the sonogram, there was a question of a stone, but there was no shattering, and it certainly was not definitive. On the MRI, which I reviewed with Dr. Barreto, the ureter appeared dilated down to the top of the gravid uterus, and then below the gravid uterus, it did not appear obviously dilated. No definite stone was seen although it was felt that the MRIs are not the best way to see the stone, and it was impossible to follow the ureter all the way down to the bladder as was being compressed by the uterus. The patient had a pelvic exam by COMMERCIAL PEST CONTROL REPRESENTATIVE, and they thought that she had some bacterial vaginosis but no evidence of any acute process from the . She was admitted to the medical service, and yesterday, she had worsening back pain, and today, when I saw her, she describes her back pain as severe. She has right lower quadrant pain, but it also radiates toward her back. On exam, it appears that it actually is more in her back, and she is lying on her side. Says that when she moves or strains out her leg or lies on her back, the pain seems worse. She has never had a kidney stone before. There was no stone noted on the CT scan in June, and she has had no hematuria. In the past, she has had episodes of this right lower quadrant pain. The pain may seem to go to her back when this happens as well, but again no history of stones, no history of stones on her previous evaluations including a CT scan in 2015. ALLERGIES: INCLUDE LANOLIN AND NICKEL. MEDICATIONS: Her only medications are pediatric vitamins. PAST MEDICAL HISTORY: Significant for pneumonia, UTI, and it was felt in 2015 she might have had pyelonephritis, yeast infection, and neck muscle strain. PAST SURGICAL HISTORY: She has no previous surgical history. PHYSICAL EXAMINATION: HEENT: Unremarkable. RESPIRATORY: Lungs are clear to auscultation. GASTROINTESTINAL: She has a gravid abdomen with pain, specifically at one point in her right lower quadrant. There seems to be quite specific point tenderness. It is not over the midline over her bladder. MUSCULOSKELETAL: When I examined her back, she has a point in her paraspinous muscle in her mid to upper back that is quite tender. It seems to radiate into her spine area. She does not have significant flank pain to percussion although it is somewhat tender in that area but less tenderness, and point tenderness in the paraspinous muscle. LABORATORY DATA: Her white blood cell count is currently normal, it was slightly elevated on admission at 11,225 but now is 5.39. She is growing up alpha strep, not Enterococcus on her urine culture, and Gardnerella on the vaginal culture. She has been started on cephalosporin by the hospitalist. She did have some bacteria and epithelial cells on urinalysis, but 1-5 white cells, 0-4 red cells, so it is unclear whether the patient had a catheterized specimen or contamination. She does not have dysuria, and she has been afebrile. Again, reviewed MRI and previous CT of 2014 [address] Barreto. Also examined the patient with Dr. Dan, the hospitalist. Dr. Barreto had a low suspicion for a stone, although she clearly has some increased dilatation, which could be either from the gravid uterus or she may have had a partial UPJ obstruction, which was there previously. She did have somewhat of a dilated right collecting system in the past that may have acutely gotten worse. In any case, we discussed doing a CAT scan as the only way to absolutely rule out a stone, and we also discussed IVP but suspected that it would show some elements of obstruction and would not be as definitive for a stone as the CAT scan. At the end, I discussed with Dr. Dan, given the confusing nature of the patient's pain and the fact that it does go into her back as opposed to her flank, and then it goes into her lower quadrant with no obvious dilatation of the distal ureter, it is really unclear what is going on in this patient at 22 weeks. If the only finding ends up being dilated right collecting system, placing a stent would not make sense in my opinion as she might have more pain from the stent and it would not answer the question as to whether or not this pain was from hydronephrosis in my opinion. If she needed a percutaneous nephrostomy, then she would have to be at a tertiary center, and they would have to make a decision as to whether it was worth this risk given no definite stone or whether they want to do a CAT scan to prove that. For that reason and because of the fact that she is 22 weeks with an unclear etiology of her pain, she is being transferred to [place] for further evaluation and possible percutaneous right stent placement. This has been explained to the patient by Dr. Dan and me. Total care spent evaluating the patient as well as evaluating x-rays with Dr. Barreto and speaking with the hospitalist with Dr. Dan at [place] was over an hour. NORRIS
== END 2018-02-17 15:18 | disposition short-term general hospital (02) ==
LOC: ED 10:47 → 4E 10:47 → SUATTDRO 17:10 → 4E 17:39

== ENCOUNTER 2018-06-30 10:00 | Inpatient (IN) ==
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
[2018-06-30] MEDS ORDERED: NALOXONE HCL 1 MG in SODIUM CHLORIDE 0.9% 1000ML 1,000 ML IV PRN ×2 (10:40→13:00)
[2018-06-30] MEDS ORDERED: DiphenhydrAMINE HCL 50 MG/ML VIAL IV PRN ×2 (10:40→13:00)
[2018-06-30] MEDS ORDERED: ePHEDrine sulfate 50 MG/ML AMP IV PRN ×2 (10:40→13:00)
[2018-06-30] MEDS ORDERED: NALOXONE HCL 0.4 MG/1 ML VIAL/CARP IV PRN ×2 (10:40→13:00)
[2018-06-30] MEDS ORDERED: NALBUPHINE HCL INJ 10 MG/ML AMP IV PRN ×2 (10:40→13:00)
[2018-06-30 11:09] LABS: Hematocrit (blood only) 31.7 % (37-47); Hemoglobin 10.7 g/dL (12.0-16.0); Mean Corpuscular Volume 78.7 fL (80-100); Mean Platelet Volume 9.9 fL (7.4-10.4); Platelet Count 211 K/uL (130-400); RDW Coefficient of Variation 13.3 % (11.5-14.5); RDW Standard Deviation 37.9 fL (36.4-46.3); Red Blood Count 4.03 M/uL (4.2-5.4); White Blood Count 8.83 K/uL (4.8-10.8)
[2018-06-30] MEDS: LACTATED RINGER'S 1,000 ML IV PRN ×3 (11:12→18:55)
[2018-06-30 11:13] LABS: Mean Corpuscular Hgb Conc 33.8 g/dL (32-36)
[2018-06-30 11:26] LABS: Amphetamines+Metham, Urine Neg (Neg); Barbiturates, Urine Neg (Neg); Benzodiazepine, Urine Neg (Neg); Cocaine, Urine Neg (Neg); MDMA (Ecstacy), Urine Neg (Neg); Methadone, Urine Neg (Neg); Opiate, Urine Neg (Neg); Phencyclidine, Urine Neg (Neg)
[2018-06-30] MEDS ORDERED: BUPIVACAINE 0.25% 30 ML VIAL ONE (11:52)
[2018-06-30] MEDS ORDERED: ePHEDrine sulfate 50 MG/ML AMP ONE (11:53)
[2018-06-30] MEDS ORDERED: fentaNYL citrate 100 MCG/2 ML VIAL ONE (11:53)
[2018-06-30] MEDS ORDERED: fentaNYL 2MCG/ML ROPIV 1.25MG/ML 100 ML BAG EPI ONE (11:54)
--- NOTE | 2018-06-30 12:02 | History & Physical Report ---
Date of Service June 30, 2018 Assessment & Plan (1) Term : Admit Epidural Expect History of Present Illness Primary Care Provider: Haydee Hernandes DO Allergies Allergy/AdvReac Type Severity Reaction Status Date / Time lanolin Allergy Unknown HIVES Verified 06/30/18 10:40 nickel Allergy Rash Verified 06/30/18 10:40 Home Medications Home Medications Medication Instructions Recorded Confirmed Type Flintstones Gummies 2 tab PO QAM 02/15/18 06/30/18 History Patient History Medical History Pneumonia (Resolved) Urinary tract infection (Resolved) Yeast infection (Resolved) Neck muscle strain (Resolved) Surgical History No pertinent past surgical history Family History Father Diabetes Stroke Social History Preferred Language: Slovak Communication Ability: Effective 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 Beliefs That Will Affect Care: None marital status: Single Current Living Situation: Significant Other Feels Safe at Home: Yes Smoking Status: Never smoker Do You Dip or Chew Tobacco: No Second Hand Exposure: No Hx Alcohol Use: No Hx Substance Use: No Review of Systems All systems reviewed & are unremarkable except as noted in HPI & below Physical Exam Constitutional: WD/WN, vitals as above Respiratory: normal respiratory effort, lungs clear to auscultation Cardiovascular: RRR, no murmur, no edema Gastrointestinal (Abdomen): normal bowel sounds, soft, nontender, no hepatosplenomegaly Genitourinary: Manual OB Exam: + cervical dilation 5 cm, + cervical effacement 80% and + station high Results & Data Vital Signs (Past 12 Hours) Vital Signs Temp Pulse Resp BP 06/30/18 11:03 37 C 75 18 126/77 06/30/18 10:19 37 C 75 18 126/77 06/30/18 10:08 75 126/77 06/30/18 10:05 37.0 C 18 Monitoring External Monitor Category 1
--- NOTE | 2018-06-30 12:56 | Anesthesiology Consultation ---
Date of Service June 30, 2018 Assessment & Plan (1) Encounter for pre-operative examination: Chart Review Chart Review: Acceptable Risk for Surgery and Patient NOT seen in Pre Admission Testing Consults Requested none ASA ASA2 Proposed Anesthesia Anesthesia Type: Labor Epidural Risk / Benefits Reviewed With: PT / POA / Parent / Guardian, Accepts Plan and Informed Consent Obtained History Height/Weight Height: 5 ft 2 in Weight: 68.039 kg Allergies Allergy/AdvReac Type Severity Reaction Status Date / Time lanolin Allergy Unknown HIVES Verified 06/30/18 10:40 nickel Allergy Rash Verified 06/30/18 10:40 Medications Home Medications Medication Instructions Recorded Confirmed Last Taken Flintstones Gummies 2 tab PO QAM 02/15/18 06/30/18 02/14/18 Active Medications Generic Name Dose Route Start Last Admin Trade Name Freq PRN Reason Stop Dose Admin Lactated Ringer's 1,000 mls @ 125 mls/hr 06/30/18 10:40 06/30/18 12:11 Lr IV 07/02/18 10:39 125 mls/hr .Q8H PRN Infusion L&D Protocol Protocol Past Medical History Medical History Pneumonia (Resolved) Urinary tract infection (Resolved) Yeast infection (Resolved) Neck muscle strain (Resolved) Past Family History Family History Father Diabetes Stroke Past Surgical History Surgical History No pertinent past surgical history Social History Smoking Status: Never smoker Do You Dip or Chew Tobacco: No Hx Alcohol Use: No Hx Substance Use: No substance use type: marijuana Physical Exam Vital Signs Last Vital Signs Temp 37 C 06/30/18 11:03 Pulse 76 06/30/18 12:49 Resp 18 06/30/18 11:03 BP 119/67 06/30/18 12:48 Pulse Ox 98 06/30/18 12:49
[2018-06-30] MEDS ORDERED: ONDANSETRON INJ 2 MG/ML 2 ML VIAL IV PRN (13:00)
[2018-06-30] MEDS ORDERED: fentaNYL 2MCG/ML ROPIV 1.25MG/ML 100 ML BAG EPI PRN (13:00)
[2018-06-30] MEDS ORDERED: OXYTOCIN 20 UNITS in LACTATED RINGER'S 1,000 ML IV SCH (17:00)
[2018-06-30] MEDS ORDERED: OXYTOCIN 30 UNITS/500 ML BAG IV PRN ×2 (17:07→19:19)
[2018-06-30] MEDS: OXYTOCIN 30 UNITS/500 ML BAG IV PRN (19:14)
[2018-06-30] MEDS ORDERED: DIPHTHERIA/TETANUS/PERTUSSIS 0.5 ML SYR/VIAL IM ONE (19:19)
[2018-06-30] MEDS ORDERED: HYDROCORTISONE ACETATE 25 MG SUPP PR PRN (19:19)
[2018-06-30] MEDS ORDERED: ACETAMINOPHEN 325 MG TAB PO PRN (19:19)
[2018-06-30] MEDS ORDERED: BENZOCAINE 20% AER SPR 82.5 GM CAN EXT PRN (19:19)
[2018-06-30] MEDS ORDERED: BISACODYL 10 MG SUPP PR PRN (19:19)
[2018-06-30] MEDS ORDERED: SUPERCREAM 0.870% 15 GM JAR EXT PRN (19:19)
--- NOTE | 2018-06-30 19:19 | Procedure Note ---
Vaginal Delivery Summary Date of Service June 30, 2018 Viable female infant Spontaneous delivery, OP position, Apgars 8&9 Spontaneous placenta, no lacerations EBL 200 mL
[2018-06-30] MEDS: IBUPROFEN 600 MG TAB PO PRN (20:59)
--- NOTE | 2018-06-30 22:21 | Anesthesia Procedure Note ---
Date of Service June 30, 2018 Anesthesia Post Epidural Note Vital Signs Vital Signs: Temp Pulse Resp BP Pulse Ox 06/30/18 21:19 36.8 C 80 18 133/80 06/30/18 21:04 81 138/78 06/30/18 20:49 77 16 131/86 06/30/18 20:34 75 20 124/77 06/30/18 20:19 79 18 129/84 06/30/18 20:04 75 20 129/87 06/30/18 19:49 88 18 121/86 06/30/18 19:34 86 18 126/76 06/30/18 19:24 94 H 98 06/30/18 19:19 86 98 06/30/18 19:18 92 H 20 132/66 06/30/18 19:14 94 H 98 06/30/18 19:09 84 100 06/30/18 19:08 83 138/90 06/30/18 19:04 113 H 100 06/30/18 18:59 92 H 100 06/30/18 18:56 101 H 88 L 06/30/18 18:54 105 H 100 06/30/18 18:52 96 H 160/79 H 06/30/18 18:49 95 H 100 06/30/18 18:44 88 100 06/30/18 18:39 74 100 06/30/18 18:37 74 135/84 06/30/18 18:34 73 100 06/30/18 18:29 77 100 06/30/18 18:24 73 100 06/30/18 18:21 73 116/66 06/30/18 18:19 75 100 06/30/18 18:14 75 100 06/30/18 18:09 75 100 06/30/18 18:07 78 133/101 H 06/30/18 18:04 76 98 06/30/18 17:59 71 98 06/30/18 17:54 78 98 06/30/18 17:53 66 114/68 06/30/18 17:49 78 98 06/30/18 17:44 62 99 06/30/18 17:39 68 98 06/30/18 17:37 69 116/63 06/30/18 17:34 68 98 06/30/18 17:29 75 98 06/30/18 17:24 71 97 06/30/18 17:21 67 120/60 06/30/18 17:19 73 98 06/30/18 17:14 80 99 06/30/18 17:09 81 98 06/30/18 17:07 69 117/57 L 06/30/18 17:04 71 98 06/30/18 16:59 67 98 06/30/18 16:54 80 98 06/30/18 16:52 85 115/70 06/30/18 16:49 68 98 06/30/18 16:44 70 98 06/30/18 16:39 80 99 06/30/18 16:36 64 120/64 06/30/18 16:34 74 98 06/30/18 16:29 67 99 06/30/18 16:24 79 98 06/30/18 16:22 67 117/59 L 06/30/18 16:19 77 99 06/30/18 16:14 65 100 06/30/18 16:09 66 100 06/30/18 16:07 79 109/67 06/30/18 16:04 74 100 06/30/18 15:59 79 100 06/30/18 15:54 69 100 06/30/18 15:52 67 115/61 06/30/18 15:49 67 100 06/30/18 15:44 78 99 06/30/18 15:39 77 100 06/30/18 15:36 89 108/54 L 06/30/18 15:34 73 100 06/30/18 15:29 80 100 06/30/18 15:24 70 100 06/30/18 15:21 74 140/61 06/30/18 15:19 79 100 06/30/18 15:14 100 H 100 06/30/18 15:09 72 100 06/30/18 15:06 66 121/58 L 06/30/18 15:04 68 100 06/30/18 14:59 70 100 06/30/18 14:54 77 100 06/30/18 14:51 75 117/64 06/30/18 14:49 72 100 06/30/18 14:44 74 100 06/30/18 14:39 75 100 06/30/18 14:36 74 112/61 06/30/18 14:34 75 100 06/30/18 14:29 81 100 06/30/18 14:24 71 100 05/26/19 14:22 78 107/58 L 06/30/18 14:21 75 109/58 L 06/30/18 14:19 73 100 06/30/18 14:14 72 100 06/30/18 14:09 72 100 06/30/18 14:06 73 112/57 L 06/30/18 14:04 85 100 06/30/18 13:59 73 100 06/30/18 13:54 74 100 06/30/18 13:52 71 116/61 06/30/18 13:49 72 100 06/30/18 13:44 75 100 06/30/18 13:39 75 100 06/30/18 13:37 76 115/66 06/30/18 13:34 74 100 06/30/18 13:29 73 100 06/30/18 13:24 76 100 06/30/18 13:21 71 112/66 06/30/18 13:19 76 100 06/30/18 13:14 75 100 06/30/18 13:09 80 99 06/30/18 13:06 72 116/68 06/30/18 13:04 72 99 06/30/18 12:59 68 119/64 99 06/30/18 12:55 74 113/63 06/30/18 12:54 75 99 06/30/18 12:49 76 98 06/30/18 12:48 71 119/67 06/30/18 12:46 75 119/68 06/30/18 12:44 72 113/67 98 06/30/18 12:42 72 120/65 06/30/18 12:40 70 132/82 06/30/18 12:39 72 98 06/30/18 12:38 74 119/72 06/30/18 12:34 80 98 06/30/18 12:29 82 98 06/30/18 12:24 82 100 06/30/18 12:19 85 99 06/30/18 11:03 37 C 75 18 126/77 06/30/18 10:19 37 C 75 18 126/77 06/30/18 10:08 75 126/77 06/30/18 10:05 37.0 C 18 Pain Intensity Bilateral Lower Abdomen: Pain Intensity: 0 Bilateral Abdomen: Pain Intensity: 4 Notes Mental Status: alert / awake / arousable and participated in evaluation Nausea / Vomiting: adequately controlled Pain: adequately controlled Airway Patency, RR, SpO2: stable & adequate BP & HR: stable & adequate Hydration State: stable & adequate Neuraxial Anesthesia: was administered and sensory block is resolving Anesthetic Complications: no major complications apparent and Pt Satisfied with anesthetic care Epidural: Removed without complications and With tip intact
[2018-07-01] MEDS: OXYTOCIN 30 UNITS/500 ML BAG IV PRN (01:21)
[2018-07-01] MEDS: IBUPROFEN 600 MG TAB PO PRN ×5 (01:23→20:51)
[2018-07-01 07:04] LABS: Hematocrit (blood only) 25.9 % (37-47); Hemoglobin 8.8 g/dL (12.0-16.0); Mean Corpuscular Volume 79.7 fL (80-100); Mean Platelet Volume 11.1 fL (7.4-10.4); Platelet Count 192 K/uL (130-400); RDW Coefficient of Variation 13.5 % (11.5-14.5); RDW Standard Deviation 39.1 fL (36.4-46.3); Red Blood Count 3.25 M/uL (4.2-5.4)
--- NOTE | 2018-07-01 08:28 | Obstetrical Progress Note ---
Date of Service July 01, 2018 Subjective Patient is seen and examined. She feels well, no complaints. Ambulating without dizziness Voiding without difficulty Tolerating regular diet with out N&V Bleeding is minimal No fever/ chills/ CP/ SOB/ N&V/ Leg pain Bottle feeding without problems Vital Signs Temp Pulse Pulse Resp BP BP 07/01/18 03:50 36.6 C 76 18 110/65 07/01/18 01:25 62 18 134/86 06/30/18 23:25 36.7 C 77 18 124/79 06/30/18 22:00 36.8 C 80 20 133/83 06/30/18 21:19 36.8 C 80 18 133/80 06/30/18 21:04 81 138/78 06/30/18 20:49 77 16 131/86 06/30/18 20:34 75 20 124/77 07/01/18 06/30/18 06/30/18 Range/Units 06:30 11:00 10:05 WBC 11.00 H 8.83 (4.8-10.8) K/uL RBC 3.25 L 4.03 L (4.2-5.4) M/uL Hgb 8.8 L 10.7 L (12.0-16.0) g/dL Hct 25.9 L 31.7 L (37-47) % MCV 79.7 L 78.7 L (80-100) fL MCH 27.1 26.6 (25-34) pg MCHC 34.0 33.8 (32-36) g/dL RDW Std Deviation 39.1 37.9 (36.4-46.3) fL RDW Coeff of Haily 13.5 13.3 (11.5-14.5) % Plt Count 192 211 (130-400) K/uL MPV 11.1 H 9.9 (7.4-10.4) fL Urine Opiates Screen (Neg) Ur Methadone, Qual (Neg) Urine Barbiturates (Neg) Ur Phencyclidine (PCP) (Neg) U Amphetamin/Meth Scrn (Neg) MDMA (Ecstasy) Screen (Neg) U Benzodiazepines Scrn (Neg) Ur Cocaine Metabolite (Neg) U Marijuana (THC) Screen (Neg) U Marijuana THC Carboxy Pending 06/30/18 Range/Units 10:05 WBC (4.8-10.8) K/uL RBC (4.2-5.4) M/uL Hgb (12.0-16.0) g/dL Hct (37-47) % MCV (80-100) fL MCH (25-34) pg MCHC (32-36) g/dL RDW Std Deviation (36.4-46.3) fL RDW Coeff of Haily (11.5-14.5) % Plt Count (130-400) K/uL MPV (7.4-10.4) fL Urine Opiates Screen Neg (Neg) Ur Methadone, Qual Neg (Neg) Urine Barbiturates Neg (Neg) Ur Phencyclidine (PCP) Neg (Neg) U Amphetamin/Meth Scrn Neg (Neg) MDMA (Ecstasy) Screen Neg (Neg) U Benzodiazepines Scrn Neg (Neg) Ur Cocaine Metabolite Neg (Neg) U Marijuana (THC) Screen Pos H (Neg) U Marijuana THC Carboxy PE: General: Alert, orientedx3, NAD Abd: soft, NT, fundus firm, below Umbilicus Perineum intact, Lochia rubra minimal Ext; NT, no edema AP: 23 yo s/p , ppd# 1 VSS Afebrile doing well Continue routine care All questions were answered D/C home tomorrow Results & Data Vital Signs (Past 12 Hours) Vital Signs Temp Pulse Pulse Resp BP BP 07/01/18 03:50 36.6 C 76 18 110/65 07/01/18 01:25 62 18 134/86 06/30/18 23:25 36.7 C 77 18 124/79 06/30/18 22:00 36.8 C 80 20 133/83 06/30/18 21:19 36.8 C 80 18 133/80 06/30/18 21:04 81 138/78 06/30/18 20:49 77 16 131/86 06/30/18 20:34 75 20 124/77
[2018-07-01] MEDS: DOCUSATE SODIUM 100 MG CAP PO SCH ×2 (08:37→20:54)
[2018-07-01] MEDS: PRENATAL VITAMIN 1 TAB PO SCH (08:37)
[2018-07-01] MEDS ORDERED: BISACODYL 5 MG TABEC PO SCH (20:00)
[2018-07-02 06:51] LABS: Hematocrit (blood only) 28.7 % (37-47); Hemoglobin 9.8 g/dL (12.0-16.0)
[2018-07-02] MEDS: DOCUSATE SODIUM 100 MG CAP PO SCH (08:21)
[2018-07-02] MEDS: IBUPROFEN 600 MG TAB PO PRN (08:21)
[2018-07-02] MEDS: PRENATAL VITAMIN 1 TAB PO SCH (08:21)
--- NOTE | 2018-07-02 10:39 | Obstetrical Progress Note ---
Date of Service July 02, 2018 Assessment & Plan (1) normal course: PPD #2 pt doing well disch home with insrcutions Subjective Ambulation: ambulating normally Voiding: no voiding problems Passing Gas:: Yes Diet Tolerance:: regular diet Lochia:: Small Feeding Type:: breast feeding Review of Systems All systems reviewed & are unremarkable except as noted in HPI & below Physical Exam Vital Signs (Past 24 Hours) Last Vital Signs Temp 36.7 C 07/02/18 08:00 Pulse 77 07/02/18 08:00 Resp 18 07/02/18 08:00 BP 123/82 07/02/18 08:00 Pulse Ox 98 07/02/18 08:00 Constitutional WD/WN, vitals as above well developed and well nourished Eyes PERRL, conjunctivae normal, anicteric sclerae Neck trachea midline, no thyromegaly Respiratory normal respiratory effort, lungs clear to auscultation Auscultation: no crackles, no rales and no wheezes Cardiovascular RRR, no murmur, no edema Gastrointestinal (Abdomen) normal bowel sounds, soft, nontender, no hepatosplenomegaly Uterus is below umbilicus Musculoskeletal no cyanosis or clubbing, extremities motor strength 5/5 Skin no rashes, warm and dry Neurologic patellar DTR's 2+ bilat, sensation intact Psychiatric A+Ox3, euthymic affect Genitourinary normal external appearance
== END 2018-07-02 13:45 | disposition home or self-care (01) | DRG 807 ==
LOC: OPB 10:00 → 4S1 10:02 → 4S2 21:43

== ENCOUNTER 2021-10-09 00:54 | Inpatient (IN) ==
[2021-10-09 01:23] LABS: Basophils # (auto) 0.03 K/uL (0-0.2); Basophils % (auto) 0.5 %; Eosinophils # (auto) 0.01 K/uL (0-0.50); Eosinophils % (auto) 0.2 %; Hematocrit (blood only) 36.3 % (34.1-44.9); Hemoglobin 12.3 g/dl (12.0-16.0); Immature Granulocytes # (auto) 0.02 K/uL (0.00-0.02); Immature Granulocytes % (auto) 0.3 %; Lymphocytes # (auto) 0.55 K/uL (1.2-3.4); Lymphocytes % (auto) 8.4 %; Mean Corpuscular Hemoglobin 29.8 pg (25.0-34.0); Mean Corpuscular Hgb Conc 33.9 g/dL (32.0-36.0); Mean Corpuscular Volume 87.9 fL (80.0-100.0); Mean Platelet Volume 10.6 fL (9.4-12.3); Monocytes # (auto) 0.94 K/uL (0.24-0.82); Monocytes % (auto) 14.4 %; Neutrophils # (auto) 4.97 K/uL (1.4-6.5); Neutrophils % (auto) 76.2 %; Platelet Count 237 K/uL (130-400); RDW Coefficient of Variation 12.5 % (11.5-14.5); RDW Standard Deviation 40.3 fL (36.4-46.3); Red Blood Count 4.13 M/uL (3.93-5.22); White Blood Count 6.52 K/ul (4.8-10.8)
--- NOTE | 2021-10-09 01:27 | Emergency Department Note ---
History of Present Illness General Chief complaint: Seizure Stated complaint: SEIZURE/POSSIBLE STROKE/VOMITING Time Seen by Provider: 10/09/21 01:01 History of Present Illness 26-year-old female presents emergency department reportedly may have had a seizure. Patient has a history of stroke with right-sided flaccidity. Patient was going to the bathroom in a wheelchair with her mother when she had an event where her head slumped over and she had a brief period of unresponsiveness. There is no reported true seizure-like activity however the patient was postictal for a very brief period of time according to EMS. There is no head trauma. The patient states that she feels tired and had felt tired all day today. There is been no nausea vomiting abdominal pain no chest pain no shortness of breath no change in the patient's neurologic evaluation for weakness on the right side. Home Medications Medication Instructions Recorded Confirmed Type melatonin 10 mg tablet 10 mg PO HS PRN Sleep 10/09/21 10/09/21 History sertraline 25 mg tablet (Zoloft) 25 mg PO DAILY 10/09/21 10/09/21 History Allergies Allergy/AdvReac Type Severity Reaction Status Date / Time lanolin Allergy Intermediate HIVES Verified 10/09/21 01:57 nickel Allergy Intermediate Rash Verified 10/09/21 01:57 Past Med/Surg History Medical History Neck muscle strain Pneumonia Urinary tract infection Yeast infection Surgical History No pertinent past surgical history Family History Father Diabetes Stroke Social History Smoking Status: Never smoker Second Hand Exposure: No; Hx Alcohol Use: No Hx Substance Use: No Preferred Language: Montserratian Communication Ability: Effective Carrier Blower Required: No Beliefs That Will Affect Care: None marital status: Single Current Living Situation: Significant Other Feels Safe at Home: Yes Assistive Devices: None Immunizations: Past surgical history is recent craniotomy in August 2021 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 Review of Systems A total of 10 systems reviewed and were otherwise negative Constitutional: + malaise and + weakness; no fever Respiratory: no cough Cardiovascular: no chest pain Gastrointestinal: no abdominal pain Physical Exam Vital Signs Vital Signs - 24 hr 10/09/21 01:09 10/09/21 01:03 10/09/21 01:10 Temperature 37.6 C H Temperature Source Oral Pulse Rate 121 H 125 H Pulse Rate from SpO2 Sensor 126 H Pulse Rhythm Regular Pulse Strength Normal Respiratory Rate 18 13 Respiratory Effort / Characteristics Non-Labored Spontaneous Respiratory Depth Normal Respiratory Pattern Regular Blood Pressure 95/58 L Blood Pressure Mean 70 Blood Pressure Position Sitting Pulse Oximetry 98 97 Oxygen Delivery Method Room Air Room Air Sepsis Recent Fever Within 48 Hours No Sepsis New/Unexplained Change in Mental Status N/A Sepsis Action Taken by Nursing No Action Required 10/09/21 01:30 10/09/21 01:30 10/09/21 02:11 Temperature Temperature Source Pulse Rate 136 H 125 H Pulse Rate from SpO2 Sensor Pulse Rhythm Pulse Strength Respiratory Rate 16 Respiratory Effort / Characteristics Respiratory Depth Respiratory Pattern Blood Pressure 109/66 Blood Pressure Mean 80 Blood Pressure Position Pulse Oximetry Oxygen Delivery Method Sepsis Recent Fever Within 48 Hours Sepsis New/Unexplained Change in Mental Status Sepsis Action Taken by Nursing 10/09/21 02:30 Temperature Temperature Source Pulse Rate 109 H Pulse Rate from SpO2 Sensor 110 H Pulse Rhythm Pulse Strength Respiratory Rate 16 Respiratory Effort / Characteristics Respiratory Depth Respiratory Pattern Blood Pressure Blood Pressure Mean Blood Pressure Position Pulse Oximetry 96 Oxygen Delivery Method Sepsis Recent Fever Within 48 Hours Sepsis New/Unexplained Change in Mental Status Sepsis Action Taken by Nursing GENERAL: Patient is awake alert in no acute distress patient is resting comfortably and showing no signs of anxiety; patient is wearing a hockey helmet EYES: The conjunctivae are clear. The pupils are round and reactive. EARS, NOSE, MOUTH AND THROAT: The nose is without any evidence of any deformity. Mucous membranes are moist. Tongue is midline. There is a right-sided facial droop NECK: The neck is nontender and supple. RESPIRATORY: Normal respiratory effort is noted there is no evidence of wheezing rhonchi or rales CARDIOVASCULAR: Regular rate and rhythm noted there no murmurs rubs or gallops normal S1 normal S2. GASTROINTESTINAL: The abdomen is soft. Abdomen is nontender. PELVIS: The Pelvis is stable. No tenderness to palpation is noted. BACK: No midline tenderness MUSCULOSKELETAL/EXTREMITIES: Patient has decreased range of motion of right upper extremity and the right lower extremity and they are flaccid SKIN: There is no obvious evidence of any rash. There are no petechiae, pallor or cyanosis noted. NEUROLOGIC: Patient is awake alert and oriented x3 ; seizure activity in the emergency department, patient has complete flaccidity of the right upper and right lower extremities Course Reevaluation(s) Reevaluation #1: Repeat examination the patient is alert she states she is tired. She is interactive with me and she is mildly tachycardic at 112 discussed evaluation with the patient's mother at bedside who states she was in a wheelchair getting ready to go to the bathroom when she slumped over to the side and had a brief period of unresponsiveness. There is no reported seizure activity. There is no history of seizure she was not treated after the surgery with antilipid medications. Time: 03:20 Consultations Consultation #1: [facility] Time: 03:21 Administered Medications Enoxaparin Sodium (Enoxaparin Inj 40 Mg/0.4 Ml Syr) 40 mg SQ DAILY JESENIA Stop: 11/08/21 03:59 Last Admin: 10/09/21 04:42 Dose: 40 mg Documented By: ROMAIN Magnesium Sulfate/Dextrose (Magnesium Sulfate / D5w) 1 gm in 100 mls @ 50 mls/hr IV Q2H JESENIA Stop: 10/09/21 08:29 Last Admin: 10/09/21 04:48 Dose: 50 mls/hr Documented By: ROMAIN Discontinued Medications Ondansetron HCl (Ondansetron Inj 2 Mg/Ml 2 Ml Vial) 4 mg IV NOW STA Stop: 10/09/21 01:57 Last Admin: 10/09/21 02:11 Dose: 4 mg Documented By: ROMAIN Medical Decision Making Medical Records Attestation: I reviewed the patient's medical records. Home Medications Current Medication List: was personally reviewed by me Laboratory Data Attestation: I reviewed the patient's lab results. Result diagrams: 10/09/21 01:05 10/09/21 03:47 Lab Results 10/09/21 10/09/21 10/09/21 Range/Units 01:05 01:05 01:05 WBC 6.52 (4.8-10.8) K/ul RBC 4.13 (3.93-5.22) M/uL Hgb 12.3 (12.0-16.0) g/dl Hct 36.3 (34.1-44.9) % MCV 87.9 (80.0-100.0) fL MCH 29.8 (25.0-34.0) pg MCHC 33.9 (32.0-36.0) g/dL RDW Std Deviation 40.3 (36.4-46.3) fL RDW Coeff of Haily 12.5 (11.5-14.5) % Plt Count 237 (130-400) K/uL MPV 10.6 (9.4-12.3) fL Immature Gran % (Auto) 0.3 % Neut % (Auto) 76.2 % Lymph % (Auto) 8.4 % Moffat % (Auto) 14.4 % Eos % (Auto) 0.2 % Baso % (Auto) 0.5 % Neut # (Auto) 4.97 (1.4-6.5) K/uL Lymph # (Auto) 0.55 L (1.2-3.4) K/uL Moffat # (Auto) 0.94 H (0.24-0.82) K/uL Eos # (Auto) 0.01 (0-0.50) K/uL Baso # (Auto) 0.03 (0-0.2) K/uL Immature Gran # (Auto) 0.02 (0.00-0.02) K/uL Sodium 136 (136-145) mmol/L Potassium 3.6 (3.5-5.1) mmol/L Chloride 103 (98-107) mmol/L Carbon Dioxide 25 (21-32) mmol/L Anion Gap 8 (3-11) BUN 10 (6-23) mg/dl Creatinine 0.74 (0.6-1.2) mg/dl Est Cr Clr Drug Dosing 89.5 ml/min Est GFR ( Amer) 127.8 ml/min Est GFR (Non-Af Amer) 110.3 ml/min BUN/Creatinine Ratio 13.5 (10-20) Glucose 135 H (70-99(Fasting)) mg/dl Lactate (0.4-2.0) mmol/L Calcium 9.1 (8.5-10.1) mg/dl Magnesium 1.6 L (1.7-2.4) mg/dl Total Bilirubin 0.4 (0.2-1.0) mg/dl AST 14 (13-39) U/L ALT 15 (7-52) U/L Alkaline Phosphatase 91 (34-104) U/L Total Protein 6.7 (6.0-8.3) gm/dl Albumin 4.3 (3.4-5.0) gm/dl Globulin 2.4 L (2.5-4.0) gm/dl Albumin/Globulin Ratio 1.8 (0.9-2) Triglycerides 93 (0-150) mg/dl Cholesterol 198 (0-200) mg/dl LDL Cholesterol, Calc 110 mg/dl VLDL Cholesterol, Calc 19 (0-30) mg/dl HDL Cholesterol 69 mg/dl Cholesterol/HDL Ratio 2.9 (0-5) SARS-CoV-2, RNA, NAAT (NEGATIVE) 10/09/21 10/09/21 10/09/21 Range/Units 03:45 03:47 03:47 WBC (4.8-10.8) K/ul RBC (3.93-5.22) M/uL Hgb (12.0-16.0) g/dl Hct (34.1-44.9) % MCV (80.0-100.0) fL MCH (25.0-34.0) pg MCHC (32.0-36.0) g/dL RDW Std Deviation (36.4-46.3) fL RDW Coeff of Haily (11.5-14.5) % Plt Count (130-400) K/uL MPV (9.4-12.3) fL Immature Gran % (Auto) % Neut % (Auto) % Lymph % (Auto) % Moffat % (Auto) % Eos % (Auto) % Baso % (Auto) % Neut # (Auto) (1.4-6.5) K/uL Lymph # (Auto) (1.2-3.4) K/uL Moffat # (Auto) (0.24-0.82) K/uL Eos # (Auto) (0-0.50) K/uL Baso # (Auto) (0-0.2) K/uL Immature Gran # (Auto) (0.00-0.02) K/uL Sodium 137 (136-145) mmol/L Potassium 3.8 (3.5-5.1) mmol/L Chloride 105 (98-107) mmol/L Carbon Dioxide 24 (21-32) mmol/L Anion Gap 8 (3-11) BUN 10 (6-23) mg/dl Creatinine 0.59 L (0.6-1.2) mg/dl Est Cr Clr Drug Dosing 112.3 ml/min Est GFR ( Amer) 144.6 ml/min Est GFR (Non-Af Amer) 124.7 ml/min BUN/Creatinine Ratio 16.9 (10-20) Glucose 123 H (70-99(Fasting)) mg/dl Lactate 0.8 (0.4-2.0) mmol/L Calcium 8.9 (8.5-10.1) mg/dl Magnesium 1.6 L (1.7-2.4) mg/dl Total Bilirubin 0.4 (0.2-1.0) mg/dl AST 12 L (13-39) U/L ALT 13 (7-52) U/L Alkaline Phosphatase 78 (34-104) U/L Total Protein 6.5 (6.0-8.3) gm/dl Albumin 4.0 (3.4-5.0) gm/dl Globulin 2.5 (2.5-4.0) gm/dl Albumin/Globulin Ratio 1.6 (0.9-2) Triglycerides (0-150) mg/dl Cholesterol (0-200) mg/dl LDL Cholesterol, Calc mg/dl VLDL Cholesterol, Calc (0-30) mg/dl HDL Cholesterol mg/dl Cholesterol/HDL Ratio (0-5) SARS-CoV-2, RNA, NAAT POSITIVE A* (NEGATIVE) Imaging Data Radiologist's Impression: History: SEIZURE , HX OF CVA WITH CRANIOTOMY Slices: 58 Priors: Tech: Chauncey Adler @ [phone] Exams: CT HEAD Contrast: Accession Numbers: [id number] Referring Physician: DENISSE PARRA Preliminary Findings Only See Final Report For Complete Findings CT HEAD: No intracranial hemorrhage, mass-effect or midline shift. There is no abnormal extra axial fluid collection. No evidence of acute infarct. Encephalomalacia of the left frontal lobe is noted. The visualized paranasal sinuses and mastoid air cells are clear. No fracture. There is a large left craniectomy. ECG Data Attestation: I personally reviewed and interpreted this ECG as follows: Additional Comments: EKG interpreted by me sinus tachycardia nonspecific T wave abnormality no obvious ST segment elevation or depression normal intervals normal axis rate of 117 MDM Narrative Medical decision making differential diagnosis seizure, infection, metabolic derangement, intracranial process. Plan is to check labs, EKG, observe Patient was evaluated for syncope versus seizure. Patient had no seizure activity in the emergency department. Patient is flaccid on the right side and this is now chronic after a stroke in August. I have spoken to the patient's mo ther who states she is not on any seizure medicines. This is concerning that the patient may have had a seizure. [facility] Impression & Plan New onset seizure Discharge Plan Visit Data Chief Complaint: Seizure Stated Complaint: SEIZURE/POSSIBLE STROKE/VOMITING ED Provider: Denisse Parra Discharge Problem: New onset seizure Patient Disposition: Being Evaluated by Hospitalist Forms Stand Alone Forms: My [facility] Prescriptions Prescriptions: No Action sertraline [Zoloft] 25 mg Tablet 25 mg PO DAILY melatonin 10 mg Tablet 10 mg PO HS PRN (Reason: Sleep) Referrals Referrals: Haydee Hernandes DO [Primary Care Provider] -
[2021-10-09 01:49] LABS: Albumin Globulin Ratio 1.8 (0.9-2); Albumin Level 4.3 gm/dl (3.4-5.0); BUN Creatinine Ratio 13.5 (10-20); Bilirubin,Total 0.4 mg/dl (0.2-1.0); Calcium 9.1 mg/dl (8.5-10.1); Creatinine Clr Calc Pharmacy 89.5 ml/min; Est GFR (African American) 127.8 ml/min; Est GFR (Non-African American) 110.3 ml/min; Globulin 2.4 gm/dl (2.5-4.0); Magnesium 1.6 mg/dl (1.7-2.4); Potassium 3.6 mmol/L (3.5-5.1); Total Protein 6.7 gm/dl (6.0-8.3)
[2021-10-09] MEDS ORDERED: ONDANSETRON INJ 2 MG/ML 2 ML VIAL IV STA (01:56)
[2021-10-09] MEDS ORDERED: ACETAMINOPHEN 325 MG TAB PO PRN (03:17)
[2021-10-09] MEDS ORDERED: POLYETHYLENE (MIRALAX) 17 GM PACK PO PRN (03:17)
[2021-10-09 04:12] LABS: Albumin Globulin Ratio 1.6 (0.9-2); BUN Creatinine Ratio 16.9 (10-20); Bilirubin,Total 0.4 mg/dl (0.2-1.0); Calcium 8.9 mg/dl (8.5-10.1); Creatinine Clr Calc Pharmacy 112.3 ml/min; Est GFR (African American) 144.6 ml/min; Est GFR (Non-African American) 124.7 ml/min; Globulin 2.5 gm/dl (2.5-4.0); Magnesium 1.6 mg/dl (1.7-2.4); Potassium 3.8 mmol/L (3.5-5.1); Total Protein 6.5 gm/dl (6.0-8.3)
[2021-10-09] MEDS ORDERED: LACTATED RINGER'S 1,000 ML IV ONE (04:20)
[2021-10-09] MEDS: ENOXAPARIN INJ 40 MG/0.4 ML SYR SQ SCH (04:42)
[2021-10-09] MEDS: MAGNESIUM SULFATE / D5W 1 GM/100 ML BAG IV SCH ×2 (04:48→06:30)
--- NOTE | 2021-10-09 04:52 | History & Physical Report ---
Date of Service October 09, 2021 Assessment & Plan (1) Syncope: Plan: - unclear if syncope vs seizure but seizure less likely as she did not have post-ictal phase, no tongue biting or incontinence - given risk factors for seizure from prior CVA will consult neurology for input - likely syncope related to dehydration from COVID19 infection vs other infectious cause - CXR without pathology, no leukocytosis - COVID19 positive - will try to obtain UA, CXR to rule out other sources of infection - IVF for hydration - encourage PO intake (2) COVID-19: Plan: - possible explanation for presentation - not hypoxic on RA - supportive care for now (3) DM2 (diabetes mellitus, type 2): Plan: - A1c ordered - BG 123 on admission - will monitor for now - diabetic diet Plan DVT ppx: Lovenox Code Status: Full Code Dispo: PCU Jack Lyons MD [facility] Medicine Admission and Anticipated Discharge Date Admission Date: 10/09/2021 History of Present Illness Chief Complaint: snycope Primary Care Provider: Haydee Hernandes DO The patient is a 26 year old woman with pmh DM2, h/o CVA with right sided hemiparesis who presented after a syncopal episode. The patient and her mother at bedside provided the history. The patient's mother was pushing her to the bathroom last night and when she came back to get her, she found the patient rolling her head around and then she briefly lost consciousness so her mother called EMS. There was reported no GTC activity and when the patient regained consciousness she denied being confused, just feeling fatigued. The patient denied chest pain, shortness of breath, nausea, palpitations prior to the episode. She did have an episode of vomiting after the episode. She denies recent diarrhea, dysuria, cough, sore throat. She does report feeling fatigued and having a lack of appetite for the whole day prior to the episode. Of note, she had a large stroke causing right sided flaccid hemiparesis and had craniotomy all in 08/2021. She was never put on AEDs subsequently after her injury. She has never had a seizure before. There was no tongue biting or incontinence during the episode. In the ED, vitals were significant for HR 110s, BP 90s/50s. Labs were significant for SARS-CoV-2 positive, mg 1.6. She was given IVF and admitted to medicine. Allergies Allergy/AdvReac Type Severity Reaction Status Date / Time lanolin Allergy Intermediate HIVES Verified 10/09/21 01:57 nickel Allergy Intermediate Rash Verified 10/09/21 01:57 Home Medications Medication Instructions Recorded Confirmed Type melatonin 10 mg tablet 10 mg PO HS PRN Sleep 10/09/21 10/09/21 History sertraline 25 mg tablet (Zoloft) 25 mg PO DAILY 10/09/21 10/09/21 History Past Med/Surg History Medical History (Updated 10/09/21 @ 04:48 by Jack Lyons MD) Neck muscle strain Pneumonia Urinary tract infection Yeast infection Surgical History No pertinent past surgical history Family History Father Diabetes Stroke Social History Smoking Status: Never smoker Second Hand Exposure: No; Hx Alcohol Use: No Hx Substance Use: No Preferred Language: Greenlandic Communication Ability: Effective Saloonkeeper Required: No Beliefs That Will Affect Care: None marital status: Single Current Living Situation: Significant Other Feels Safe at Home: Yes Assistive Devices: None Review of Systems Review of Systems: All systems reviewed & are unremarkable except as noted in Subjective Physical Exam Constitutional: WD/WN, vitals as above Eyes: PERRL, conjunctivae normal, anicteric sclerae ENMT: external ear and nose normal, oropharynx normal Neck: trachea midline, no thyromegaly Respiratory: normal respiratory effort, lungs clear to auscultation Cardiovascular: Rate/Rhythm: regular rhythm and + tachycardic Heart Sounds: normal S1 and normal S2; no gallop, no murmur and no cardiac rub Gastrointestinal (Abdomen): normal bowel sounds, soft, nontender, no hepatosplenomegaly Musculoskeletal: small bruise on anterolateral aspect of right ankle and small wound on right lateral malleolus. right sided flaccid paralysis, Left sided moving spontaneously Skin: no rashes, warm and dry Neurologic: CN's II-XI intact bilaterally and awake Speech / Cognition: normal speech Motor/Sensory: + fasciculations (right leg) Psychiatric: A+Ox3, euthymic affect Results & Data Results & Data ([facility]) Vital Signs (Past 12 Hours) Vital Signs Temp Pulse Resp BP Pulse Ox O2 Del Method 10/09/21 02:30 109 H 16 96 10/09/21 02:11 125 H 10/09/21 01:30 136 H 16 10/09/21 01:30 109/66 10/09/21 01:10 125 H 13 97 10/09/21 01:03 Room Air 10/09/21 01:09 37.6 C H 121 H 18 95/58 L 98 Room Air Laboratory Results Short CBC 10/09/21 Range/Units 01:05 WBC 6.52 (4.8-10.8) K/ul Hgb 12.3 (12.0-16.0) g/dl Hct 36.3 (34.1-44.9) % Plt Count 237 (130-400) K/uL BMP 10/09/21 10/09/21 01:05 03:47 Sodium 136 137 Potassium 3.6 3.8 Chloride 103 105 Carbon Dioxide 25 24 BUN 10 10 Creatinine 0.74 0.59 L Glucose 135 H 123 H Calcium 9.1 8.9 Liver Function 10/09/21 10/09/21 Range/Units 01:05 03:47 Total Bilirubin 0.4 0.4 (0.2-1.0) mg/dl AST 14 12 L (13-39) U/L ALT 15 13 (7-52) U/L Alkaline Phosphatase 91 78 (34-104) U/L Albumin 4.3 4.0 (3.4-5.0) gm/dl Medications Administered Current Inpatient Medications Acetaminophen (Acetaminophen 325 Mg Tab) 650 mg PO Q4H PRN PRN Reason: Pain or Fever Stop: 11/08/21 03:16 Enoxaparin Sodium (Enoxaparin Inj 40 Mg/0.4 Ml Syr) 40 mg SQ DAILY JESENIA Stop: 11/08/21 03:59 Last Admin: 10/09/21 04:42 Dose: 40 mg Magnesium Sulfate/Dextrose (Magnesium Sulfate / D5w) 1 gm in 100 mls @ 50 mls/hr IV Q2H JESENIA Stop: 10/09/21 08:29 Lactated Ringer's (Lr) 1,000 mls @ 250 mls/hr IV .Q4H ONE Stop: 10/09/21 08:19 Naproxen (Naproxen 250 Mg Tab) 250 mg PO BID [facility] Stop: 10/10/21 08:59 Polyethylene Glycol (Polyethylene (Miralax) 17 Gm Pack) 17 gm PO DAILY PRN PRN Reason: Constipation Stop: 11/08/21 03:16 Code Status & VTE Plan Code Status Full Code VTE Prophylaxis Plan VTE Prophylaxis will be ordered: Yes
[2021-10-09 05:08] LABS: Chol HDL Ratio 2.9 (0-5)
[2021-10-09] MEDS ORDERED: MELATONIN 3 MG TAB PO PRN (05:40)
--- NOTE | 2021-10-09 07:23 | Electrocardiogram Report ---
Test Reason : Blood Pressure : / mmHG Vent. Rate : 117 BPM Atrial Rate : 117 BPM P-R Int : 146 ms QRS Dur : 072 ms QT Int : 308 ms P-R-T Axes : 072 071 066 degrees QTc Int : 429 ms Sinus tachycardia Nonspecific T wave abnormality Abnormal ECG When compared with ECG of 15-AUG-2021 20:40, Nonspecific T wave abnormality now evident in Inferior leads Nonspecific T wave abnormality now evident in Anterolateral leads Confirmed by Monroe Benjamni ([id number]) on 10/09/2021 7:22:56 AM Referred By: REFERRED SELF Confirmed By:Jose Guadalupe Benjamin
[2021-10-09] MEDS: SERTRALINE HCL 50 MG TABLET PO SCH (08:35)
[2021-10-09] MEDS: NAPROXEN 250 MG TAB PO SCH ×2 (08:35→20:47)
--- NOTE | 2021-10-09 09:03 | XRay Report ---
XR chest 1V portable CLINICAL HISTORY: syncope TECHNIQUE: Single frontal radiograph of the chest was obtained. Comparison: Comparison is made to chest radiograph 08/15/2021 FINDINGS: No lines and tubes are seen. The cardiomediastinal silhouette is normal. The lungs are clear. No evid ence of pleural effusion or pneumothorax. IMPRESSION: No acute abnormalities and in particular no evidence of pneumonia. ACT 112: Negative or not required by law. Electronically signed by: Mirza Fitzpatrick M.D. 10/09/2021 9:02 AM
--- NOTE | 2021-10-09 09:34 | CT Scan Report ---
CT head/brain wo con CLINICAL HISTORY: seizure Technique: Contiguous axial CT images of the head were acquired from the base of the skull to the chu tiara without intravenous contrast administration. Images were viewed in brain, subdural and bone [facility]. Automated dose lowering techniques and/or adjustment according to patient size were utilized for this exam. Comparison: Comparison is made to CTA head and neck 08/15/2021 Findings: Postsurgical changes of left craniotomy. Focal encephalomalacia is seen in the left basal ganglia com patible with previously noted infarct. There is 2 mm leftward midline shift. There is appearance of v asogenic edema in the supraventricular white matter. Imaged portions of the paranasal sinuses and mastoid air cells are clear. The orbits appear normal. There are no acute fractures of the calvaria or scalp swelling. Impression: Patient is status post craniotomy. Encephalomalacia and mild edema is seen compatible with previously noted left basal ganglia infarct. No hemorrhagic transformation or significant midline shift is seen . ACT 112: Negative or not required by law. Electronically signed by: Mirza Fitzpatrick M.D. 10/09/2021 9:33 AM
--- NOTE | 2021-10-09 09:57 | Neurology Consultation ---
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 She has a left-sided skull decompressive surgery and is post hemorrhage evacuation. She has stabilized and has been left with right hemiplegia, right raz sensory deficits, and a right homonymous hemianopsia. She still has mild edema via CT scan although it is improved compared to previous scans. It was felt, at [facility], that this stroke was originally embolic from a PFO. Patient had an episode of syncope with possible secondary seizure activity while sitting in a wheelchair, late in the evening of October 08. She seems to be hypotensive with some mild compensatory tachycardia. There may been some dehydr ation as well. She is Covid-19 positive although she does not have typical symptoms of this acute illness. Although the patient does have risk factors for seizures with her previous stroke and edema, the pay is a ganglion is not typically an area that produces seizures. She was sent home off anticonvulsant medication and she has been stable. I am not convinced that she had any type of seizure yesterday. Recommendations: 1. as the patient wants to go home and is stable , she should be followed up as an outpatient. She is a [facility] patient but has not seen a neurologist there. I could follow this patient up in 1-2 weeks ( with 1 of my PAs in the office) desired. 2. therefore, I do not believe we need to initiated anti convulsant at this time and I do not believe we need an MRI or EEG. Should she continue have episodes or become worse than these test would be appropriate. If I was going to initiate a medication, I would probably use levetiracetam 500 milligrams twice daily. 3. She is scheduled to follow-up with [facility] neurologists and neurosurgeons later this month. She needs to have her skull put back ( possibly late this month). Decisions for anticoagulation or antiplatelet medication need to be made long-term as well. 4. Try to increase activity day and keep her hydrated. Try to maintain her blood pressure. Overall, I spent a total of 90 minutes with this case including review of records, review of CT films, direct evaluation the patient bedside, and discussion of the case with the patient and RN at bedside , Dr. Sandoval, including differential diagnosis and treatment options. History of Present Illness Reason for Consultation: Patient is a 26-year-old, who I was asked to see at the request of Dr. Jarvis, for neurologic consultation regarding previous stroke and possible seizure Requesting Physician: Dr. Jarvis Attending Physician: Shiva Sandoval MD History of Present Illness this patient has a history of left middle cerebral artery stroke August 15 of this year. She presented to the emergency room with right raz paresis and was found to have a large thrombus in the left M2 segment. She was life flighted to [facility]. She then underwent a thrombectomy but postoperatively she developed somnolence and edema. She had a hemorrhagic conversion with interventricular extension requiring evacuation of blood and a left sided decompressive surgery (Skull removal). I cannot gather from notes whether or not the patient had any seizures at [place] or thereafter. the patient was noted to have a PFO and this stroke originally was felt to be embolic. The patient was discharged from [facility] on August 24 and spend the [facility], being discharged on Sep. She has been living with her mother ever since. patient is on no antiplatelet or anticoagulation medication. She takes 25 milligrams of sertraline for some depression. As aftermath of the stroke and complications she has right hemiplegia, right homonymous hemianopsia, and right raz sensory deficit. She has no speech issues or confusion. The left side is normal. The patient went to bed as usual on the evening of October 08 , feeling noticeably tired. a couple of hours later she got up and her mother was helping her in the wheelchair to the bathroom when the patient apparently slumped over in the chair having a brief period of unresponsiveness. There was no obvious seizure activity noted ( no tonic-clonic activity and no tongue biting or incont inence of urine ). She was sleepy and had little recall for everything last night She arrived to the emergency room October 09 at 01:09 with a temperature 37.6, pulse 121, respiratory rate 18, blood pressure 95/58, and O2 saturation 98 percent. She was Covid-19 in the emergency room (no known viral symptoms according to the patient) and was probably mildly dehydrated. CBC was unremarkable. Chem profile is largely unremarkable although glucose was mildly elevated 141. liver profile was normal and today lipid profile was normal with a cholesterol of 198 and triglycerides of 93. CT scan of the head revealed a large left basal ganglia area of encephalomalacia with some mild swelling on that side. 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 There is no significant midline shift. This morning she has no pain or headaches. She feels about the same as usual with no new symptoms. The patient has had no seizure activity since admission. Allergies Allergy/AdvReac Type Severity Reaction Status Date / Time lanolin Allergy Intermediate HIVES Verified 10/09/21 01:57 nickel Allergy Intermediate Rash Verified 10/09/21 01:57 Home Medications Medication Instructions Recorded Confirmed Type melatonin 10 mg tablet 10 mg PO HS PRN Sleep 10/09/21 10/09/21 History sertraline 25 mg tablet (Zoloft) 25 mg PO DAILY 10/09/21 10/09/21 History Patient History Medical History (Updated 10/09/21 @ 10:27 by Issa Villanueva MD) Neck muscle strain Pneumonia Urinary tract infection Yeast infection Surgical History No pertinent past surgical history Family History Father Diabetes Stroke Social History Smoking Status: Never smoker Second Hand Exposure: No; Do You Dip or Chew Tobacco: No; Tobacco Cessation Education Requested by Patient: No Hx Alcohol Use: No Hx Substance Use: No Preferred Language: Nigerian Communication Ability: Effective Technical Report Writer Required: No Beliefs That Will Affect Care: None marital status: Single Current Living Situation: Family Other Information That Helps Us Care for You: No Feels Safe at Home: Yes Safety Concerns: Feels Safe At This Time Assistive Devices: Bedside Commode and Wheelchair Review of Systems Constitutional: + fatigue and + weakness; no fever Eyes: + worsening vision; no diplopia and no eye pain Ear, Nose, Mouth, Throat: no ear pain, no tinnitus, no hearing loss, no dizziness, no snoring, no hoarseness and no dysphagia Respiratory: no cough and no dyspnea Cardiovascular: no chest pain, no palpitations and no lightheadedness Gastrointestinal: no abdominal pain, no nausea and no vomiting Genitourinary: no dysuria, no urinary frequency and no urinary incontinence Musculoskeletal: no back pain, no neck pain, no radicular pain, no joint pain and no myalgia Integumentary: no rash and no lesions Neurologic: + gait abnormality, + localized weakness and + numbness; no generalized weakness, no tingling, no tremor(s), no abnormal movements, no headache(s), no abnormal speech, no confusion and no memory loss Psychiatric: + depression; no irritability, no anxiety, no difficulty concentrating, no confusion and no hallucinations Endocrine: no fatigue and no flushing Hematologic / Lymphatic: no easy bleeding and no easy bruising Allergy / Immunological: no urticaria and no problem reported Exam (Neuro) Physical Exam: The patient is left-handed. The patient is awake, alert, and attentive. Speech is normal without any aphasia or dysarthria. The patient can name objects, repeat phrases, and has normal spontaneous speech. Mentation and thought processes are Reasonable but her memory is somewhat off for dates and times. Mood is reasonable and her affect is appropriate. Pupils are 3mm bilaterally and reactive to light. Extraocular eye muscles are intact without nystagmus. Visual acuity and visual ivy seem normal grossly to confrontation. There are no deficits to sensation in the face in all 3 distributions of the fifth cranial nerve bilaterally. Corneal reflexes are positive bilaterally. There is a dense right facial droop at the corner of the mouth compared to the left which is normal. Hearing seems normal bilaterally. Palate moves well without asymmetry. There is normal sternocleidomastoid and trapezius (shoulder shrug) strength bilaterally. Tongue is midline with good strength bilaterally. She has no tenderness along the left scalp where the skull is missing. Neck has a full range of motion without discomfort. There are no cervical bruits bilaterally. There are no cranial or ocular bruits. Heart is without murmur. There is a regular rhythm and rate. Gait Could not be tested and stance is poor. with outstretched arm on the left, there is no tremor or ataxia with [id number] testing. The right upper extremity is flaccid. There is good facility in the left hand. Motor strength is 5/5 Diffusely in the left arm and leg both proximally and distally. There is good tone in these limbs. The right arm and leg are flaccid with 0 5/5 movement and decreased tone. The limbs have good tone without rigidity or spasticity. There is no atrophy noted in the muscles. Muscle bulk is normal, there is no tenderness to palpation, no myotonia to percussion, and no fasciculations seen. Sensory examination is intact to touch and pin In the left upper and lower extremities and the face bilaterally. The right upper extremity is decreased with pin and touch but feels deep pain in the right lower extremity does not f eel pin touch or deep pain. Reflexes are 2/4 in the biceps, triceps, brachioradialis, quadriceps, and Achilles tendons On the left and these reflexes are 3/4 on the right. Toes are downgoing with plantar stimulation On the left, and upgoing on the right. Peripheral pulses are present and of normal quality distally in all 4 limbs. There is no peripheral edema noted in the limbs. Results & Data ([facility]) Vital Signs (Past 12 Hours) Vital Signs Temp Pulse Pulse Resp BP BP Pulse Ox 10/09/21 08:00 37.4 C 113 H 18 98/62 L 98 10/09/21 06:00 10/09/21 05:45 106 H 10/09/21 05:30 37.6 C H 102 H 16 105/69 98 10/09/21 05:00 102 H 15 99 10/09/21 05:00 93/66 L 10/09/21 04:30 106 H 20 10/09/21 04:00 109 H 13 10/09/21 04:00 92/55 L 10/09/21 03:30 111 H 12 96 10/09/21 03:29 113 H 12 95 10/09/21 03:29 91/54 L 10/09/21 03:00 111 H 18 97 10/09/21 05:29 10/09/21 02:30 109 H 16 96 10/09/21 02:11 125 H 10/09/21 01:30 136 H 16 10/09/21 01:30 109/66 10/09/21 01:10 125 H 13 97 10/09/21 01:03 10/09/21 01:09 37.6 C H 121 H 18 95/58 L 98 O2 Del Method 10/09/21 08:00 Room Air 10/09/21 06:00 Room Air 10/09/21 05:45 10/09/21 05:30 Room Air 10/09/21 05:00 10/09/21 05:00 10/09/21 04:30 10/09/21 04:00 10/09/21 04:00 10/09/21 03:30 10/09/21 03:29 10/09/21 03:29 10/09/21 03:00 10/09/21 05:29 Room Air 10/09/21 02:30 10/09/21 02:11 10/09/21 01:30 10/09/21 01:30 10/09/21 01:10 10/09/21 01:03 Room Air 10/09/21 01:09 Room Air PG Care Time/CCT Total # of Minutes Spent Total Time Spent with Patient: Total time spent is greater than 50% in coordination of care (as documented) at patient's floor/unit and/or counseling patient: Coding Level of Care Code 76283 Inpt Consult Level 5 Diagnoses Syncope R55 Hemiplegia of right nondominant side as late effect of cerebral infarction I69.353 Right homonymous 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
--- NOTE | 2021-10-09 10:58 | Hospitalist Progress Note ---
Date of Service October 09, 2021 Assessment & Plan (1) Syncope: Plan: - unclear if syncope vs seizure but seizure less likely as she did not have post-ictal phase, no tongue biting or incontinence - given risk factors for seizure from prior CVA will consult neurology for input - likely syncope related to dehydration from COVID19 infection vs other infectious cause - CXR without pathology, no leukocytosis - COVID19 positive - UA - pending (not obtained) - IVF for hydration - encourage PO intake 10/08 Pt seen by neurology 1. as the patient wants to go home and is stable , she should be followed up as an outpatient. She is a [facility] patient but has not seen a neurologist there. I could follow this patient up in 1-2 weeks ( with 1 of my PAs in the office) desired. 2. therefore, I do not believe we need to initiated anti convulsant at this time and I do not believe we need an MRI or EEG. Should she continue have episodes or become worse than these test would be appropriate. If I was going to initiate a medication, I would probably use levetiracetam 500 milligrams twice daily. 3. She is scheduled to follow-up with [facility] neurologists and neurosurgeons later this month. She needs to have her skull put back ( possibly late this month). Decisions for anticoagulation or antiplatelet medication need to be made long-term as well. 4. Try to increase activity day and keep her hydrated. Try to maintain her blood pressure. (2) COVID-19: Plan: - possible explanation for presentation - not hypoxic on RA - supportive care for now (3) DM2 (diabetes mellitus, type 2): Plan: - A1c ordered - BG 123 on admission - will monitor for now - diabetic diet Plan DVT ppx: Lovenox Code Status: Full Code Dispo: PCU Admission and Anticipated Discharge Date Admission Date: October 09, 2021 Subjective Pt seen in follow up of syncope/ poss. seizure Hx of CVA in August - treated at [facility] [place] Found to be COVID 19 positive in the ED on this admission Currently laying in bed, in no acute distress, reports feeling tired Right upper extremity and right lower extremity weakness from CVA No fevers, chills, chest pain, shortness of breath, no cough no abdominal pain, no nausea vomiting or diarrhea Discussed with patient's RN, and Dr. Villanueva, neurology UA pending Review of Systems Review of Systems: All systems reviewed & are unremarkable except as noted in Subjective Physical Exam Physical Exam: Constitutional:L young F laying in bed, in NAD Eyes: PERRL, EOMI, conju nctivae normal, an icteric sclerae ENMT: external ear and n ose normal, oropha rynx normal Neck: supple Respiratory: normal respiratory effort, lungs logan ar to auscultation Cardiovascular:L Rate/Rhythm: regul ar rhythm and + ta chycardic Heart S ounds: normal S1 a nd normal S2; no g allop, no murmur a nd no cardiac rub Gastrointestinal ( Abdomen): normal bowel sound s, soft, nontender Musculoskeletal: small bruise on an terolateral aspect of right ankle an d small wound on r ight lateral malle olus. right sided flaccid paralysis, Left sided moving spontaneously Skin: no rashes, warm an d dry Neurologic: awake alert, able to answer simple q uestions appropria tely, speech fluen t, + R facial droo p, right upper ext remity and right l ower extremity wea kness from CVA Psychiatric: A+Ox3, euthymic af fect Results & Data Results & Data ([facility]) Vital Signs (Past 12 Hours) Vital Signs Temp Pulse Pulse Resp BP BP Pulse Ox 10/09/21 08:00 37.4 C 113 H 18 98/62 L 98 10/09/21 06:00 10/09/21 05:45 106 H 10/09/21 05:30 37.6 C H 102 H 16 105/69 98 10/09/21 05:00 102 H 15 99 10/09/21 05:00 93/66 L 10/09/21 04:30 106 H 20 10/09/21 04:00 109 H 13 10/09/21 04:00 92/55 L 10/09/21 03:30 111 H 12 96 10/09/21 03:29 113 H 12 95 10/09/21 03:29 91/54 L 10/09/21 03:00 111 H 18 97 10/09/21 05:29 10/09/21 02:30 109 H 16 96 10/09/21 02:11 125 H 10/09/21 01:30 136 H 16 10/09/21 01:30 109/66 10/09/21 01:10 125 H 13 97 10/09/21 01:03 10/09/21 01:09 37.6 C H 121 H 18 95/58 L 98 O2 Del Method 10/09/21 08:00 Room Air 10/09/21 06:00 Room Air 10/09/21 05:45 10/09/21 05:30 Room Air 10/09/21 05:00 10/09/21 05:00 10/09/21 04:30 10/09/21 04:00 10/09/21 04:00 10/09/21 03:30 10/09/21 03:29 10/09/21 03:29 10/09/21 03:00 10/09/21 05:29 Room Air 10/09/21 02:30 10/09/21 02:11 10/09/21 01:30 10/09/21 01:30 10/09/21 01:10 10/09/21 01:03 Room Air 10/09/21 01:09 Room Air Laboratory Results 10/09/21 10/09/21 10/09/21 Range/Units 03:47 03:47 03:45 WBC (4.8-10.8) K/ul RBC (3.93-5.22) M/uL Hgb (12.0-16.0) g/dl Hct (34.1-44.9) % MCV (80.0-100.0) fL MCH (25.0-34.0) pg MCHC (32.0-36.0) g/dL RDW Std Deviation (36.4-46.3) fL RDW Coeff of Haily (11.5-14.5) % Plt Count (130-400) K/uL MPV (9.4-12.3) fL Immature Gran % (Auto) % Neut % (Auto) % Lymph % (Auto) % [place] % (Auto) % Eos % (Auto) % Baso % (Auto) % Neut # (Auto) (1.4-6.5) K/uL Lymph # (Auto) (1.2-3.4) K/uL [place]ven # (Auto) (0.24-0.82) K/uL Eos # (Auto) (0-0.50) K/uL Baso # (Auto) (0-0.2) K/uL Immature Gran # (Auto) (0.00-0.02) K/uL Sodium 137 (136-145) mmol/L Potassium 3.8 (3.5-5.1) mmol/L Chloride 105 (98-107) mmol/L Carbon Dioxide 24 (21-32) mmol/L Anion Gap 8 (3-11) BUN 10 (6-23) mg/dl Creatinine 0.59 L (0.6-1.2) mg/dl Est Cr Clr Drug Dosing 112.3 ml/min Est GFR ( Amer) 144.6 ml/min Est GFR (Non-Af Amer) 124.7 ml/min BUN/Creatinine Ratio 16.9 (10-20) Glucose 123 H (70-99(Fasting)) mg/dl Estimat Average Glucose Hemoglobin A1c Lactate 0.8 (0.4-2.0) mmol/L Calcium 8.9 (8.5-10.1) mg/dl Magnesium 1.6 L (1.7-2.4) mg/dl Total Bilirubin 0.4 (0.2-1.0) mg/dl AST 12 L (13-39) U/L ALT 13 (7-52) U/L Alkaline Phosphatase 78 (34-104) U/L Total Protein 6.5 (6.0-8.3) gm/dl Albumin 4.0 (3.4-5.0) gm/dl Globulin 2.5 (2.5-4.0) gm/dl Albumin/Globulin Ratio 1.6 (0.9-2) Triglycerides (0-150) mg/dl Cholesterol (0-200) mg/dl LDL Cholesterol, Calc mg/dl VLDL Cholesterol, Calc (0-30) mg/dl HDL Cholesterol mg/dl Cholesterol/HDL Ratio (0-5) SARS-CoV-2, RNA, NAAT POSITIVE A* (NEGATIVE) 10/09/21 10/09/21 10/09/21 Range/Units 01:05 01:05 01:05 WBC (4.8-10.8) K/ul RBC (3.93-5.22) M/uL Hgb (12.0-16.0) g/dl Hct (34.1-44.9) % MCV (80.0-100.0) fL MCH (25.0-34.0) pg MCHC (32.0-36.0) g/dL RDW Std Deviation (36.4-46.3) fL RDW Coeff of Haily (11.5-14.5) % Plt Count (130-400) K/uL MPV (9.4-12.3) fL Immature Gran % (Auto) % Neut % (Auto) % Lymph % (Auto) % [place] % (Auto) % Eos % (Auto) % Baso % (Auto) % Neut # (Auto) (1.4-6.5) K/uL Lymph # (Auto) (1.2-3.4) K/uL Screven # (Auto) (0.24-0.82) K/uL Eos # (Auto) (0-0.50) K/uL Baso # (Auto) (0-0.2) K/uL Immature Gran # (Auto) (0.00-0.02) K/uL Sodium 136 (136-145) mmol/L Potassium 3.6 (3.5-5.1) mmol/L Chloride 103 (98-107) mmol/L Carbon Dioxide 25 (21-32) mmol/L Anion Gap 8 (3-11) BUN 10 (6-23) mg/dl Creatinine 0.74 (0.6-1.2) mg/dl Est Cr Clr Drug Dosing 89.5 ml/min Est GFR ( Amer) 127.8 ml/min Est GFR (Non-Af Amer) 110.3 ml/min BUN/Creatinine Ratio 13.5 (10-20) Glucose 135 H (70-99(Fasting)) mg/dl Estimat Average Glucose Pending Hemoglobin A1c Pending Lactate (0.4-2.0) mmol/L Calcium 9.1 (8.5-10.1) mg/dl Magnesium 1.6 L (1.7-2.4) mg/dl Total Bilirubin 0.4 (0.2-1.0) mg/dl AST 14 (13-39) U/L ALT 15 (7-52) U/L Alkaline Phosphatase 91 (34-104) U/L Total Protein 6.7 (6.0-8.3) gm/dl Albumin 4.3 (3.4-5.0) gm/dl Globulin 2.4 L (2.5-4.0) gm/dl Albumin/Globulin Ratio 1.8 (0.9-2) Triglycerides 93 (0-150) mg/dl Cholesterol 198 (0-200) mg/dl LDL Cholesterol, Calc 110 mg/dl VLDL Cholesterol, Calc 19 (0-30) mg/dl HDL Cholesterol 69 mg/dl Cholesterol/HDL Ratio 2.9 (0-5) SARS-CoV-2, RNA, NAAT (NEGATIVE) 10/09/21 Range/Units 01:05 WBC 6.52 (4.8-10.8) K/ul RBC 4.13 (3.93-5.22) M/uL Hgb 12.3 (12.0-16.0) g/dl Hct 36.3 (34.1-44.9) % MCV 87.9 (80.0-100.0) fL MCH 29.8 (25.0-34.0) pg MCHC 33.9 (32.0-36.0) g/dL RDW Std Deviation 40.3 (36.4-46.3) fL RDW Coeff of Haily 12.5 (11.5-14.5) % Plt Count 237 (130-400) K/uL MPV 10.6 (9.4-12.3) fL Immature Gran % (Auto) 0.3 % Neut % (Auto) 76.2 % Lymph % (Auto) 8.4 % Scre[place] % (Auto) 14.4 % Eos % (Auto) 0.2 % Baso % (Auto) 0.5 % Neut # (Auto) 4.97 (1.4-6.5) K/uL Lymph # (Auto) 0.55 L (1.2-3.4) K/uL Screven # (Auto) 0.94 H (0.24-0.82) K/uL Eos # (Auto) 0.01 (0-0.50) K/uL Baso # (Auto) 0.03 (0-0.2) K/uL Immature Gran # (Auto) 0.02 (0.00-0.02) K/uL Sodium (136-145) mmol/L Potassium (3.5-5.1) mmol/L Chloride (98-107) mmol/L Carbon Dioxide (21-32) mmol/L Anion Gap (3-11) BUN (6-23) mg/dl Creatinine (0.6-1.2) mg/dl Est Cr Clr Drug Dosing ml/min Est GFR ( Amer) ml/min Est GFR (Non-Af Amer) ml/min BUN/Creatinine Ratio (10-20) Glucose (70-99(Fasting)) mg/dl Estimat Average Glucose Hemoglobin A1c Lactate (0.4-2.0) mmol/L Calcium (8.5-10.1) mg/dl Magnesium (1.7-2.4) mg/dl Total Bilirubin (0.2-1.0) mg/dl AST (13-39) U/L ALT (7-52) U/L Alkaline Phosphatase (34-104) U/L Total Protein (6.0-8.3) gm/dl Albumin (3.4-5.0) gm/dl Globulin (2.5-4.0) gm/dl Albumin/Globulin Ratio (0.9-2) Triglycerides (0-150) mg/dl Cholesterol (0-200) mg/dl LDL Cholesterol, Calc mg/dl VLDL Cholesterol, Calc (0-30) mg/dl HDL Cholesterol mg/dl Cholesterol/HDL Ratio (0-5) SARS-CoV-2, RNA, NAAT (NEGATIVE) Medications Administered Current Inpatient Medications Acetaminophen (Acetaminophen 325 Mg Tab) 650 mg PO Q4H PRN PRN Reason: Pain or Fever Stop: 11/08/21 03:16 Enoxaparin Sodium (Enoxaparin Inj 40 Mg/0.4 Ml Syr) 40 mg SQ DAILY JESENIA Stop: 11/08/21 03:59 Last Admin: 10/09/21 04:42 Dose: 40 mg Melatonin (Melatonin 3 Mg Tab) 9 mg PO HS PRN PRN Reason: Sleep Naproxen (Naproxen 250 Mg Tab) 250 mg PO BID JESENIA Stop: 10/10/21 08:59 Last Admin: 10/09/21 08:35 Dose: 250 mg Polyethylene Glycol (Polyethylene (Miralax) 17 Gm Pack) 17 gm PO DAILY PRN PRN Reason: Constipation Stop: 11/08/21 03:16 Sertraline HCl (Sertraline Hcl 50 Mg Tablet) 25 mg PO DAILY JESENIA Stop: 11/08/21 08:59 Last Admin: 10/09/21 08:35 Dose: 25 mg
[2021-10-09] MEDS ORDERED: SODIUM CHLORIDE 0.9% 1000ML 1,000 ML IV ONE (11:10)
[2021-10-09 16:13] LABS: Appearance Urine Cloudy (Clear); Bacteria Urine Automated 4+ (Negative); Bilirubin Urine Negative (Negative); Blood Urine Negative (Negative); Color Urine Yellow; Epithelial Cell Urine Auto >30 /lpf (0-5); Glucose Urine UA Negative (Negative); Ketones Urine Negative (Negative); Leukocyte Esterase Urine Trace (Negative); Nitrite Urine Negative (Negative); Protein Urine Negative (Negative); RBC Urine Automated 0-4 /hpf (0-4); Urobilinogen Urine Negative (Negative)
[2021-10-10 07:47] LABS: Basophils # (auto) 0.01 K/uL (0-0.2); Basophils % (auto) 0.2 %; Hematocrit (blood only) 33.7 % (34.1-44.9); Hemoglobin 11.4 g/dl (12.0-16.0); Immature Granulocytes # (auto) 0.02 K/uL (0.00-0.02); Immature Granulocytes % (auto) 0.4 %; Lymphocytes # (auto) 0.57 K/uL (1.2-3.4); Lymphocytes % (auto) 11.8 %; Mean Corpuscular Hemoglobin 29.2 pg (25.0-34.0); Mean Corpuscular Hgb Conc 33.8 g/dL (32.0-36.0); Mean Corpuscular Volume 86.2 fL (80.0-100.0); Monocytes # (auto) 0.87 K/uL (0.24-0.82); Neutrophils # (auto) 3.37 K/uL (1.4-6.5); Neutrophils % (auto) 69.6 %; Platelet Count 173 K/uL (130-400); RDW Coefficient of Variation 12.4 % (11.5-14.5); RDW Standard Deviation 39.4 fL (36.4-46.3); Red Blood Count 3.91 M/uL (3.93-5.22); White Blood Count 4.84 K/ul (4.8-10.8)
[2021-10-10 08:02] LABS: Estimated Average Glucose 82 mg/dl; Hemoglobin A1C 4.5 % (4.5-5.6)
[2021-10-10 08:07] LABS: Anion Gap 6 (3-11); BUN Creatinine Ratio 16.3 (10-20); Blood Urea Nitrogen 8 mg/dl (6-23); Calcium 8.2 mg/dl (8.5-10.1); Carbon Dioxide 25 mmol/L (21-32); Chloride 106 mmol/L (98-107); Creatinine Clr Calc Pharmacy 127.6 ml/min; Est GFR (African American) > 150.0 ml/min; Est GFR (Non-African American) 132.6 ml/min; Glucose 86 mg/dl (70-99(Fasting)); Magnesium 1.5 mg/dl (1.7-2.4); Phosphorus 3.3 mg/dl (2.5-4.9); Potassium 3.5 mmol/L (3.5-5.1); Sodium 137 mmol/L (136-145)
[2021-10-10] MEDS: ENOXAPARIN INJ 40 MG/0.4 ML SYR SQ SCH (08:40)
[2021-10-10] MEDS: SERTRALINE HCL 50 MG TABLET PO SCH (08:41)
[2021-10-10] MEDS ORDERED: SODIUM CHLORIDE 0.9% 500 ML IV ONE (08:53)
[2021-10-10] MEDS: POTASSIUM CHLORIDE PWD 20 MEQ PACK PO ONE ×2 (10:02→10:18)
[2021-10-10] MEDS ORDERED: POTASSIUM CHLORIDE CRTAB 20 MEQ TABCR PO STA (10:40)
--- NOTE | 2021-10-10 12:35 | Hospitalist Progress Note ---
Date of Service October 10, 2021 Assessment & Plan (1) Syncope: Plan: COVID 19 UTI - unclear if syncope vs seizure but seizure less likely as she did not have post-ictal phase, no tongue biting or incontinence - given risk factors for seizure from prior CVA will consult neurology for input - likely syncope related to dehydration from COVID19 infection vs other infectious cause - CXR without pathology, no leukocytosis - COVID19 positive - Ucultx -probable Enterococcus -Patient is also febrile at 38 Celsius -Will start Unasyn for now, we will also obtain blood culture -Continue with IVF for hydration - encourage PO intake 10/09 Pt seen by neurology 1. as the patient wants to go home and is stable , she should be followed up as an outpatient. She is a [facility] patient but has not seen a neurologist there. I could follow this patient up in 1-2 weeks ( with 1 of my PAs in the office) desired. 2. therefore, I do not believe we need to initiated anti convulsant at this time and I do not believe we need an MRI or EEG. Should she continue have episodes or become worse than these test would be appropriate. If I was going to initiate a medication, I would probably use levetiracetam 500 milligrams twice daily. 3. She is scheduled to follow-up with [facility] neurologists and neurosurgeons later this month. She needs to have her skull put back ( possibly late this month). Decisions for anticoagulation or antiplatelet medication need to be made long-term as well. 4. Try to increase activity day and keep her hydrated. Try to maintain her blood pressure. 10/10 Today, she displays typical spasticity and clonus in the right lower extremity from the stroke. For the patient's spasticity baclofen 10 milligrams twice a day, to start, would be reasonable. The patient, however, does not want any new medication at this time. (2) COVID-19: Plan: - possible explanation for presentation - not hypoxic on RA - supportive care for now (3) DM2 (diabetes mellitus, type 2): Plan: - A1c 4.5% - BG 123 on admission - will monitor for now - Patient has very poor p.o. intake, will encourage regular diet, without restrictions Plan DVT ppx: Lovenox Code Status: Full Code Dispo: PCU Admission and Anticipated Discharge Date Admission Date: October 09, 2021 Subjective Pt seen in follow up of syncope/ poss. seizure Hx of CVA in August - treated at [facility] Found to be COVID 19 positive in the ED on this admission Currently laying in bed, in no acute distress, reports feeling tired Right upper extremity and right lower extremity weakness from CVA, +spasticity RLE No fevers, chills, chest pain, shortness of breath, no cough no abdominal pain, no nausea vomiting or diarrhea Discussed with patient's RN, and Dr. Villanueva, neurology Ucultx now positive for probable Enterococcus, pt is also febrile Review of Systems Review of Systems: All systems reviewed & are unremarkable except as noted in Subjective Physical Exam Physical Exam: Constitutional:L young F laying in bed, in NAD Eyes: PERRL, EOMI, conju nctivae normal, an icteric sclerae ENMT: external ear and n ose normal, oropha rynx normal Neck: supple Respiratory: normal respiratory effort, lungs logan ar to auscultation Cardiovascular:L RRR Heart Sounds: normal S1 and nor mal S2 Gastrointestinal ( Abdomen): normal bowel sound s, soft, nontender Musculoskeletal: small bruise on an terolateral aspect of right ankle an d small wound on r ight lateral malle olus. right sided flaccid paralysis, Left sided moving spontaneously Skin: no rashes, warm an d dry Neurologic: awake alert, able to answer question s appropriately, s peech fluent, + R facial droop, righ t upper extremity and right lower ex tremity weakness f rom CVA, +RLE spas ticity Psychiatric: A+Ox3, euthymic af fect Results & Data Results & Data ([facility]) Vital Signs (Past 12 Hours) Vital Signs Temp Pulse Resp BP Pulse Ox Pulse Ox O2 Del Method 10/10/21 11:49 38.2 C H 96 H 15 107/69 99 Room Air 10/10/21 07:41 37.4 C 99 H 16 94/64 L 97 10/10/21 03:17 98 10/10/21 03:58 36.7 C 88 18 98/63 L 98 Room Air O2 Del Method 10/10/21 11:49 10/10/21 07:41 10/10/21 03:17 Room Air 10/10/21 03:58 Laboratory Results 10/10/21 10/10/21 10/09/21 Range/Units 07:34 07:34 15:54 WBC 4.84 (4.8-10.8) K/ul RBC 3.91 L (3.93-5.22) M/uL Hgb 11.4 L (12.0-16.0) g/dl Hct 33.7 L (34.1-44.9) % MCV 86.2 (80.0-100.0) fL MCH 29.2 (25.0-34.0) pg MCHC 33.8 (32.0-36.0) g/dL RDW Std Deviation 39.4 (36.4-46.3) fL RDW Coeff of Haily 12.4 (11.5-14.5) % Plt Count 173 (130-400) K/uL MPV 10.0 (9.4-12.3) fL Immature Gran % (Auto) 0.4 % Neut % (Auto) 69.6 % Lymph % (Auto) 11.8 % Lawrence % (Auto) 18.0 % Eos % (Auto) 0.0 % Baso % (Auto) 0.2 % Neut # (Auto) 3.37 (1.4-6.5) K/uL Lymph # (Auto) 0.57 L (1.2-3.4) K/uL Lawrence # (Auto) 0.87 H (0.24-0.82) K/uL Eos # (Auto) 0.00 (0-0.50) K/uL Baso # (Auto) 0.01 (0-0.2) K/uL Immature Gran # (Auto) 0.02 (0.00-0.02) K/uL Sodium 137 (136-145) mmol/L Potassium 3.5 (3.5-5.1) mmol/L Chloride 106 (98-107) mmol/L Carbon Dioxide 25 (21-32) mmol/L Anion Gap 6 (3-11) BUN 8 (6-23) mg/dl Creatinine 0.49 L (0.6-1.2) mg/dl Est Cr Clr Drug Dosing 127.6 ml/min Est GFR ( Amer) > 150.0 ml/min Est GFR (Non-Af Amer) 132.6 ml/min BUN/Creatinine Ratio 16.3 (10-20) Glucose 86 (70-99(Fasting)) mg/dl Estimat Average Glucose mg/dl Hemoglobin A1c (4.5-5.6) % Calcium 8.2 L (8.5-10.1) mg/dl Phosphorus 3.3 (2.5-4.9) mg/dl Magnesium 1.5 L (1.7-2.4) mg/dl Triglycerides (0-150) mg/dl Cholesterol (0-200) mg/dl LDL Cholesterol, Calc mg/dl VLDL Cholesterol, Calc (0-30) mg/dl HDL Cholesterol mg/dl Cholesterol/HDL Ratio (0-5) Urine Color Yellow Urine Appearance Cloudy A (Clear) Urine pH 6.0 (4.5-7.5) Ur Specific Merriman 1.020 (1.000-1.030) Urine Protein Negative (Negative) Urine Glucose (UA) Negative (Negative) Urine Ketones Negative (Negative) Urine Blood Negative (Negative) Urine Nitrite Negative (Negative) Urine Bilirubin Negative (Negative) Urine Urobilinogen Negative (Negative) Ur Leukocyte Esterase Trace H (Negative) Urine WBC (Auto) 10-30 H (0-5) /hpf Urine RBC (Auto) 0-4 (0-4) /hpf U Hyaline Cast (Auto) 5-10 H (0-5) /lpf U Epithel Cells (Auto) >30 H (0-5) /lpf Urine Bacteria (Auto) 4+ H (Negative) Ur Renal Epithelial Cell Not Reportable 10/09/21 10/09/21 Range/Units 01:05 01:05 WBC (4.8-10.8) K/ul RBC (3.93-5.22) M/uL Hgb (12.0-16.0) g/dl Hct (34.1-44.9) % MCV (80.0-100.0) fL MCH (25.0-34.0) pg MCHC (32.0-36.0) g/dL RDW Std Deviation (36.4-46.3) fL RDW Coeff of Haily (11.5-14.5) % Plt Count (130-400) K/uL MPV (9.4-12.3) fL Immature Gran % (Auto) % Neut % (Auto) % Lymph % (Auto) % Lawrence % (Auto) % Eos % (Auto) % Baso % (Auto) % Neut # (Auto) (1.4-6.5) K/uL Lymph # (Auto) (1.2-3.4) K/uL Lawrence # (Auto) (0.24-0.82) K/uL Eos # (Auto) (0-0.50) K/uL Baso # (Auto) (0-0.2) K/uL Immature Gran # (Auto) (0.00-0.02) K/uL Sodium (136-145) mmol/L Potassium (3.5-5.1) mmol/L Chloride (98-107) mmol/L Carbon Dioxide (21-32) mmol/L Anion Gap (3-11) BUN (6-23) mg/dl Creatinine (0.6-1.2) mg/dl Est Cr Clr Drug Dosing ml/min Est GFR ( Amer) ml/min Est GFR (Non-Af Amer) ml/min BUN/Creatinine Ratio (10-20) Glucose (70-99(Fasting)) mg/dl Estimat Average Glucose 82 mg/dl Hemoglobin A1c 4.5 (4.5-5.6) % Calcium (8.5-10.1) mg/dl Phosphorus (2.5-4.9) mg/dl Magnesium (1.7-2.4) mg/dl Triglycerides 93 (0-150) mg/dl Cholesterol 198 (0-200) mg/dl LDL Cholesterol, Calc 110 mg/dl VLDL Cholesterol, Calc 19 (0-30) mg/dl HDL Cholesterol 69 mg/dl Cholesterol/HDL Ratio 2.9 (0-5) Urine Color Urine Appearance (Clear) Urine pH (4.5-7.5) Ur Specific Merriman (1.000-1.030) Urine Protein (Negative) Urine Glucose (UA) (Negative) Urine Ketones (Negative) Urine Blood (Negative) Urine Nitrite (Negative) Urine Bilirubin (Negative) Urine Urobilinogen (Negative) Ur Leukocyte Esterase (Negative) Urine WBC (Auto) (0-5) /hpf Urine RBC (Auto) (0-4) /hpf U Hyaline Cast (Auto) (0-5) /lpf U Epithel Cells (Auto) (0-5) /lpf Urine Bacteria (Auto) (Negative) Ur Renal Epithelial Cell Medications Administered Current Inpatient Medications Acetaminophen (Acetaminophen 325 Mg Tab) 650 mg PO Q4H PRN PRN Reason: Pain or Fever Stop: 11/08/21 03:16 Enoxaparin Sodium (Enoxaparin Inj 40 Mg/0.4 Ml Syr) 40 mg SQ DAILY JESENIA Stop: 11/08/21 03:59 Last Admin: 10/10/21 08:40 Dose: Not Given Sodium Chloride (Nss) 500 mls @ 100 mls/hr IV .Q5H ONE Stop: 10/10/21 13:52 Last Admin: 10/10/21 10:13 Dose: 100 mls/hr Melatonin (Melatonin 3 Mg Tab) 9 mg PO HS PRN PRN Reason: Sleep Polyethylene Glycol (Polyethylene (Miralax) 17 Gm Pack) 17 gm PO DAILY PRN PRN Reason: Constipation Stop: 11/08/21 03:16 Sertraline HCl (Sertraline Hcl 50 Mg Tablet) 25 mg PO DAILY JESENIA Stop: 11/08/21 08:59 Last Admin: 10/10/21 08:41 Dose: Not Given
--- NOTE | 2021-10-10 12:41 | Neurology Progress Note ---
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, followed by hemorrhagic transformation with edema and surgical intervention required. She had left-sided skull decompressive surgery and is post hemorrhage evacuation. She has stabilized and has right hemiplegia, right raz sensory deficits, and a right homonymous hemianopsia. She still has mild edema via CT scan October 09, although it is improved compared to previous scans. It was felt, at [facility], that this stroke was originally embolic from a PFO. In the evening of October 08, the patient had an episode of syncope with possible secondary seizure activity while sitting in a wheelchair. She seemed to be hypotensive with some mild compensatory tachycardia. There may been some dehydration as well. She is Covid-19 positive, although she does not have typical symptoms of this acute illness. Although the patient does have risk factors for seizures with her previous stroke and edema, the basal ganglion is not typically an area that produces seizures. She was sent home off anticonvulsant medication and she has been stable. I am not convinced that she had any type of seizure yesterday. today, she displays typical spasticity and clonus in the right lower extremity from the stroke. Recommendations: 1. I could follow this patient up in 1-2 weeks (with 1 of my PAs in the office) , if desired. however, the patient does have neurologists and neurosurgeons at [facility] and will be seeing them later this month. I could be a local resource for this patient. 2. Currently, there is no need to initiated an anticonvulsant, or obtain other testing such as an MRI or EEG. Should she continue have episodes or become worse, then these tests would be appropriate. If I was going to initiate a medication, I would probably use levetiracetam 500 milligrams twice daily. 3. She is scheduled to follow-up with [facility] neurologists and neurosurgeons later this month. She needs to have her skull put back ( possibly late this month). Decisions for anticoagulation or antiplatelet medication need to be made long-term as well. 4. Try to increase activity day and keep her hydrated. Try to maintain her blood pressure. Overall, I spent a total of 35 minutes with this case including review of records, direct evaluation the patient bedside, and discussion of the case with the patient and RN at bedside, and Dr. Sandoval, including differential diagnosis and treatment options. Admission and Anticipated Discharge Date Admission Date: October 09, 2021 Subjective patient feels improved compared to yesterday. She is in good spirits and is alert. No syncope or seizures have occurred according to the nurse. Patient has had episodes where her right lower extremity start shaking for few minutes. There is pain and tightness in the leg as well, during this time. She is perfectly awake and alert and no other limb moves during these times. The nurse witnessed this. Results & Data ([facility]) Vital Signs (Past 12 Hours) Vital Signs Temp Pulse Resp BP Pulse Ox Pulse Ox O2 Del Method 10/10/21 11:49 38.2 C H 96 H 15 107/69 99 Room Air 10/10/21 07:41 37.4 C 99 H 16 94/64 L 97 10/10/21 03:17 98 10/10/21 03:58 36.7 C 88 18 98/63 L 98 Room Air O2 Del Method 10/10/21 11:49 10/10/21 07:41 10/10/21 03:17 Room Air 10/10/21 03:58 Exam (Neuro) Physical Exam: She is awake and alert with normal speech and mentation. Mood is normal and affect is appropriate. Thought processes are intact conversation. There is a dense right facial droop and the right upper extremity is flaccid. The patient could lift the right lower extremity off the bed for a 2nd Reflexes are 2/4 diffusely on the right leg. Today, the right lower extremity is 4/4 in that when the reflex at the quadriceps are Achilles tendon is tapped she goes into sustained clonus. She tells me that this is a sensation she has when her leg jerks. 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
[2021-10-10] MEDS: AMPICILLIN/SULBACTAM SOD 1,500 MG in 0.9 % SODIUM CHLORIDE 100 ML IV SCH ×2 (13:15→18:25)
[2021-10-10] MEDS ORDERED: SERTRALINE HCL 50 MG TABLET PO SCH (21:00)
[2021-10-10] MEDS: MAGNESIUM SULFATE / D5W 1 GM/100 ML BAG IV SCH ×2 (21:08→23:44)
[2021-10-11] MEDS: AMPICILLIN/SULBACTAM SOD 1,500 MG in 0.9 % SODIUM CHLORIDE 100 ML IV SCH ×3 (01:30→14:23)
[2021-10-11 06:50] LABS: Hematocrit (blood only) 35.6 % (34.1-44.9); Hemoglobin 11.9 g/dl (12.0-16.0); Mean Corpuscular Hemoglobin 29.4 pg (25.0-34.0); Mean Corpuscular Hgb Conc 33.4 g/dL (32.0-36.0); Mean Corpuscular Volume 87.9 fL (80.0-100.0); Mean Platelet Volume 9.9 fL (9.4-12.3); Platelet Count 176 K/uL (130-400); RDW Coefficient of Variation 12.3 % (11.5-14.5); RDW Standard Deviation 39.9 fL (36.4-46.3); Red Blood Count 4.05 M/uL (3.93-5.22); White Blood Count 3.07 K/ul (4.8-10.8)
[2021-10-11 07:18] LABS: Anion Gap 5 (3-11); Blood Urea Nitrogen 5 mg/dl (6-23); Calcium 8.2 mg/dl (8.5-10.1); Carbon Dioxide 25 mmol/L (21-32); Chloride 107 mmol/L (98-107); Creatinine Clr Calc Pharmacy 129.3 ml/min; Est GFR (African American) > 150.0 ml/min; Est GFR (Non-African American) 131.7 ml/min; Glucose 89 mg/dl (70-99(Fasting)); Magnesium 1.8 mg/dl (1.7-2.4); Potassium 3.6 mmol/L (3.5-5.1); Sodium 137 mmol/L (136-145)
--- NOTE | 2021-10-11 08:16 | Hospitalist Progress Note ---
Date of Service October 11, 2021 Assessment & Plan (1) Syncope: Plan: COVID 19 UTI - unclear if syncope vs seizure but seizure less likely as she did not have post-ictal phase, no tongue biting or incontinence - given risk factors for seizure from prior CVA will consult neurology for input - likely syncope related to dehydration from COVID19 infection vs other infectious cause - CXR without pathology, no leukocytosis - COVID19 positive - Ucultx - positive for Enterococcus -Patient also febrile at 38 Celsius yesterday (10/10) -started Unasyn, blood culture obtained - negative so far - encourage PO intake 10/09 Pt seen by neurology 1. as the patient wants to go home and is stable , she should be followed up as an outpatient. She is a [facility] patient but has not seen a neurologist there. I could follow this patient up in 1-2 weeks ( with 1 of my PAs in the office) desired. 2. therefore, I do not believe we need to initiated anti convulsant at this time and I do not believe we need an MRI or EEG. Should she continue have episodes or become worse than these test would be appropriate. If I was going to initiate a medication, I would probably use levetiracetam 500 milligrams twice daily. 3. She is scheduled to follow-up with [facility] neurologists and neurosurgeons later this month. She needs to have her skull put back ( possibly late this month). Decisions for anticoagulation or antiplatelet medication need to be made long-term as well. 4. Try to increase activity day and keep her hydrated. Try to maintain her blood pressure. 10/10 Today, she displays typical spasticity and clonus in the right lower extremity from the stroke. For the patient's spasticity baclofen 10 milligrams twice a day, to start, would be reasonable. The patient, however, does not want any new medication at this time. (2) COVID-19: Plan: - possible explanation for presentation - not hypoxic on RA - supportive care for now (3) DM2 (diabetes mellitus, type 2): Plan: - A1c 4.5% - BG 123 on admission - will monitor for now - Patient has very poor p.o. intake, will encourage regular diet, without restrictions Plan DVT ppx: Lovenox Code Status: Full Code Dispo: PCU -> plan to DC home Admission and Anticipated Discharge Date Admission Date: October 09, 2021 Subjective Pt seen in follow up of syncope/ poss. seizure Hx of CVA in August - treated at [facility] Found to be COVID 19 positive in the ED on this admission Also found to have Enterococcal UTI Febrile yesterday Currently laying in bed, in no acute distress, reports feeling better Right upper extremity and right lower extremity weakness from CVA, +spasticity RLE No fevers, chills, chest pain, shortness of breath, no cough no abdominal pain, no nausea vomiting or diarrhea Discussed with patient's RN, and Dr. Villanueva, neurology Review of Systems Review of Systems: All systems reviewed & are unremarkable except as noted in Subjective Physical Exam Physical Exam: Constitutional:L young F laying in bed, in NAD Eyes: PERRL, EOMI, conju nctivae normal, an icteric sclerae ENMT: external ear and n ose normal, oropha rynx normal Neck: supple Respiratory: normal respiratory effort, lungs logan ar to auscultation Cardiovascular:L RRR Heart Sounds: normal S1 and nor mal S2 Gastrointestinal ( Abdomen): normal bowel sound s, soft, nontender Musculoskeletal: small bruise on an terolateral aspect of right ankle an d small wound on r ight lateral malle olus. right sided flaccid paralysis, Left sided moving spontaneously Skin: no rashes, warm an d dry Neurologic: awake alert, able to answer question s appropriately, s peech fluent, + R facial droop, righ t upper extremity and right lower ex tremity weakness f rom CVA, +RLE spas ticity Psychiatric: A+Ox3, euthymic af fect Results & Data Results & Data ([facility]) Vital Signs (Past 12 Hours) Vital Signs Temp Pulse Pulse Resp BP Pulse Ox Pulse Ox 10/11/21 07:39 36.9 C 82 16 94/59 L 98 10/11/21 03:00 97 10/11/21 03:13 36.7 C 83 18 91/55 L 95 10/10/21 22:20 81 10/10/21 22:46 37.0 C 82 18 100/66 97 O2 Del Method O2 Del Method 10/11/21 07:39 Room Air 10/11/21 03:00 Room Air 10/11/21 03:13 Room Air 10/10/21 22:20 10/10/21 22:46 Room Air Laboratory Results 10/11/21 10/11/21 Range/Units 06:34 06:34 WBC 3.07 L (4.8-10.8) K/ul RBC 4.05 (3.93-5.22) M/uL Hgb 11.9 L (12.0-16.0) g/dl Hct 35.6 (34.1-44.9) % MCV 87.9 (80.0-100.0) fL MCH 29.4 (25.0-34.0) pg MCHC 33.4 (32.0-36.0) g/dL RDW Std Deviation 39.9 (36.4-46.3) fL RDW Coeff of Haily 12.3 (11.5-14.5) % Plt Count 176 (130-400) K/uL MPV 9.9 (9.4-12.3) fL Sodium 137 (136-145) mmol/L Potassium 3.6 (3.5-5.1) mmol/L Chloride 107 (98-107) mmol/L Carbon Dioxide 25 (21-32) mmol/L Anion Gap 5 (3-11) BUN 5 L (6-23) mg/dl Creatinine 0.50 L (0.6-1.2) mg/dl Est Cr Clr Drug Dosing 129.3 ml/min Est GFR ( Amer) > 150.0 ml/min Est GFR (Non-Af Amer) 131.7 ml/min BUN/Creatinine Ratio 10.0 (10-20) Glucose 89 (70-99(Fasting)) mg/dl Calcium 8.2 L (8.5-10.1) mg/dl Magnesium 1.8 (1.7-2.4) mg/dl Medications Administered Current Inpatient Medications Acetaminophen (Acetaminophen 325 Mg Tab) 650 mg PO Q4H PRN PRN Reason: Pain or Fever Stop: 11/08/21 03:16 Last Admin: 10/10/21 15:49 Dose: 650 mg Enoxaparin Sodium (Enoxaparin Inj 40 Mg/0.4 Ml Syr) 40 mg SQ DAILY JESENIA Stop: 11/08/21 03:59 Last Admin: 10/10/21 08:40 Dose: Not Given Ampicillin Sodium/Sulbactam Sodium 1,500 mg/ Sodium Chloride 104 mls @ 208 mls/hr IV Q6H JESENIA; Protocol Stop: 10/20/21 12:59 Last Admin: 10/11/21 06:28 Dose: 208 mls/hr Melatonin (Melatonin 3 Mg Tab) 9 mg PO HS PRN PRN Reason: Sleep Polyethylene Glycol (Polyethylene (Miralax) 17 Gm Pack) 17 gm PO DAILY PRN PRN Reason: Constipation Stop: 11/08/21 03:16 Sertraline HCl (Sertraline Hcl 50 Mg Tablet) 25 mg PO PM JESENIA Stop: 11/09/21 20:59 Last Admin: 10/10/21 21:10 Dose: 25 mg
[2021-10-11] MEDS: ENOXAPARIN INJ 40 MG/0.4 ML SYR SQ SCH (10:07)
[2021-10-11] MEDS ORDERED: ADVANCED PROBIOTIC 1250 MG CAPSULE PO SCH (13:15)
--- NOTE | 2021-10-11 14:13 | Discharge Summary ---
Date of Service October 11, 2021 Admission HPI Per Admitting Provider The patient is a 26 year old woman with pmh DM2, h/o CVA with right sided hemiparesis who presented after a syncopal episode. The patient and her mother at bedside provided the history. The patient's mother was pushing her to the bathroom last night and when she came back to get her, she found the patient rolling her head around and then she briefly lost consciousness so her mother called EMS. There was reported no GTC activity and when the patient regained consciousness she denied being confused, just feeling fatigued. The patient denied chest pain, shortness of breath, nausea, palpitations prior to the epis ode. She did have an episode of vomiting after the episode. She denies recent diarrhea, dysuria, cough, sore throat. She does report feeling fatigued and having a lack of appetite for the whole day prior to the episode. Of note, she had a large stroke causing right sided flaccid hemiparesis and had craniotomy all in 08/2021. She was never put on AEDs subsequently after her injury. She has never had a seizure before. There was no tongue biting or incontinence during the episode. In the ED, vitals were significant for HR 110s, BP 90s/50s. Labs were significant for SARS-CoV-2 positive, mg 1.6. She was given IVF and admitted to medicine. Admission Exam Per Admitting Provider Constitutional: WD/WN, vitals as above Eyes: PERRL, conjunctivae normal, anicteric sclerae ENMT: external ear and nose normal, oropharynx normal Neck: trachea midline, no thyromegaly Respiratory: normal respiratory effort, lungs clear to auscultation Cardiovascular: Rate/Rhythm: regular rhythm and + tachycardic Heart Sounds: normal S1 and normal S2; no gallop, no murmur and no cardiac rub Gastrointestinal (Abdomen): normal bowel sounds, soft, nontender, no hepatosplenomegaly Musculoskeletal: small bruise on anterolateral aspect of right ankle and small wound on right lateral malleolus. right sided flaccid paralysis, Left sided moving spontaneously Skin: no rashes, warm and dry Neurologic: CN's II-XI intact bilaterally and awake Speech / Cognition: normal speech Motor/Sensory: + fasciculations (right leg) Psychiatric: A+Ox3, euthymic affect Principal Diagnosis Syncopal episode secondary to hypotension, UTI History of CVA Discharge Exam Constitutional: young F laying in bed, in NAD Eyes: PERRL, EOMI, conjunctivae normal, anicteric sclerae ENMT: external ear and nose normal, oropharynx normal Neck: supple Respiratory: normal respiratory effort, lungs clear to auscultation Cardiovascular: RRR Heart Sounds: normal S1 and normal S2 Gastrointestinal (Abdomen): normal bowel sounds, soft, nontender Musculoskeletal: small bruise on anterolateral aspect of right ankle and small wound on right lateral malleolus. right sided flaccid paralysis, Left sided moving spontaneously Skin:L no rashes, warm and dry Neurologic: awake alert, able to answer questions appropriately, speech fluent, + R facial droop, right upper extremity and right lower extremity weakness from CVA, +RLE spasticity Psychiatric: A+Ox3, euthymic affect Discharge Data Allergies Allergy/AdvReac Type Severity Reaction Status Date / Time lanolin Allergy Intermediate HIVES Verified 10/09/21 01:57 nickel Allergy Intermediate Rash Verified 10/09/21 01:57 Consultations 10/09/21 03:17 Consult Neurology Routine 10/09/21 03:19 ED Decision to Admit Stat Ordered Studies 10/09/21 01:07 CT head/brain wo con Urgent Findings: Postsurgical changes of left craniotomy. Focal encephalomalacia is seen in the left basal ganglia compatible with previously noted infarct. There is 2 mm leftward midline shift. There is appearance of vasogenic edema in the supraventricular white matter. Imaged portions of the paranasal sinuses and mastoid air cells are clear. The orbits appear normal. There are no acute fractures of the calvaria or scalp swelling. Impression: Patient is status post craniotomy. Encephalomalacia and mild edema is seen compatible with previously noted left basal ganglia infarct. No hemorrhagic transformation or significant midline shift is seen. Hospital Course (1) Syncope: COVID 19 UTI - unclear if syncope vs seizure but seizure less likely as she did not have post-ictal phase, no tongue biting or incontinence - given risk factors for seizure from prior CVA will consult neurology for input - likely syncope related to dehydration from COVID19 infection vs other infectious cause - CXR without pathology, no leukocytosis - COVID19 positive - Ucultx - positive for Enterococcus -Patient also febrile at 38 Celsius yesterday (10/10) -started Unasyn, blood culture obtained - negative so far - encourage PO intake 10/09 Pt seen by neurology 1. as the patient wants to go home and is stable , she should be followed up as an outpatient. She is a [facility] patient but has not seen a neurologist there. I could follow this patient up in 1-2 weeks ( with 1 of my PAs in the office) desired. 2. therefore, I do not believe we need to initiated anti convulsant at this time and I do not believe we need an MRI or EEG. Should she continue have episodes or become worse than these test would be appropriate. If I was going to initiate a medication, I would probably use levetiracetam 500 milligrams twice daily. 3. She is scheduled to follow-up with [facility] neurologists and neurosurgeons later this month. She needs to have her skull put back ( possibly late this month). Decisions for anticoagulation or antiplatelet medication need to be made long-term as well. 4. Try to increase activity day and keep her hydrated. Try to maintain her blood pressure. 10/10 Today, she displays typical spasticity and clonus in the right lower extremity from the stroke. For the patient's spasticity baclofen 10 milligrams twice a day, to start, would be reasonable. The patient, however, does not want any new medication at this time. (2) COVID-19: - possible explanation for presentation - not hypoxic on RA - supportive care for now (3) DM2 (diabetes mellitus, type 2): - A1c 4.5% - BG 123 on admission - will monitor for now - Patient has very poor p.o. intake,encourage regular diet, without restrictions Plan Dispo: PCU -> plan to MD home Home Health Attestation I certify that this patient is under my care and that I, or a physicians laboratory chemical assistant working with me, had a face to-face encounter that meets the home health [id number] encounter requirements with this patient. The encounter with the patient was in whole, or in part, for the following medical condition, which is the primary reason for home health care (list medical condition): Syncope I certify that, based on my findings, the following services are medically necessary home health services: My clinical findings support the need for the above services because: OT Assess ADL Status and Restore Function w ADLs PT Assessment for Endurance / Balance / Strength PT Eval for Safety and Mobility PT Eval for Safety, Gait Training, Assistive Devices PT Gait and Balance Training, Strengthening and Safety Skilled Nsg Assessment ST Eval Cognition and Speech and Ensure Safety w Oral Feedings Further, I certify that my clinical findings support that this patient is homebound (i.e. absences from home require considerable and taxing effort and are for medical reasons or judaism services or infrequently or of short duration when for other reasons) because: Transportation Assistance/Unable to Leave Home Unassisted Certification for Home Health Services: Based on the above findings, I certify that this patient is confined to the home and needs intermittent residential care, physical therapy and/or speech therapy or continues to need occupational therapy. The patient is under my care, and I have initiated the establishment of the plan of care. This patient will be followed by a physician who will periodically review the plan of care. Total Time Total Time Spent Total Time Spent (In Minutes): 40 Discharge Plan Discharge Items Patient Disposition: Home - Home Health Services Reason For Visit: SEIZURE Discharge Diagnosis: Syncopal episode secondary to hypotension, UTI History of CVA Activity: Per Instructions section Non-emergency contact: Primary Care Provider and Neurologist Call non-emergency contact if: you have any medication questions and your symptoms worsen Follow-up/Referrals: Haydee Hernandes DO [Primary Care Provider] - (Date & Time 10/19/2021 11:10 AM Provider Haydee Hernandes DO Department [facility] ) Diet: Regular Addtl Attending Provider Instructions: Follow-up with primary care physician, and neurology/neurosurgery. Finish antibiotic treatment for UTI as prescribed. Pending Studies at Discharge: Yes Studies:: Final blood cultx Stand-Alone Forms: [facility] [employer] Smoking Cessation Medications and DC Order Prescriptions: New amoxicillin-pot clavulanate [Augmentin] 500-125 mg tablet 1 tab PO BID 5 Days Qty: 10 0RF Continued sertraline [Zoloft] 25 mg Tablet 25 mg PO DAILY melatonin 10 mg Tablet 10 mg PO HS PRN (Reason: Sleep) Discharge Orders: Discharge Order (Routine); Ordered 10/11/21 Ordered By: Shiva Sandoval Admission Data Admit Date/Time: 10/09/21 03:18 Attending Provider: Shiva Sandoval Admit Provider: Jack Lyons Primary Care Provider: Haydee Hernandes Other Providers: Issa Villanueva ; Jack Lyons ; [place]
== END 2021-10-11 15:45 | disposition home health service (06) | DRG 312 ==
LOC: ED 00:54 → 2S 03:18